=== PATIENT | female | born 1955 | race American Indian/Alaskan Native ===

== ENCOUNTER 2017-02-12 14:11 | Inpatient (IN) | payer MEDICARE ==
[2017-02-12 14:55] LABS: Eosinophils % (Auto) 1.1 % (0.0-4.3)
[2017-02-12 14:57] LABS: White Blood Count 8.2 K/mm3 (4.5-11.0)
[2017-02-12 14:58] LABS: Basophils % (Auto) 0.6 % (0.0-1.8); Diff Status Complete; Hematocrit 39.2 % (30.3-42.9); Hemoglobin 12.5 gm/dl (10.1-14.3); Mean Corpuscular HGB Conc 32 % (30-34); Mean Corpuscular Hemoglobin 29 pg (28-32); Mean Corpuscular Volume 90 fl (79-97); Platelet Count 225 K/mm3 (140-440); Red Blood Count 4.35 M/mm3 (3.65-5.03); Red Cell Distribution Width 17.6 % (13.2-15.2)
[2017-02-12 15:02] LABS: INR 0.91 (0.87-1.13)
--- NOTE | 2017-02-12 15:03 | Emergency Department Report ---
HPI - General Time Seen by Provider: 02/12/17 14:20 - HPI HPI: This is a 61-year-old female presents to the emergency department by EMS from home after she had complaints of chest pain, passed out and was found to have bradycardia and concern for a heart block on EMS EKG. She was externally paced by EMS. The patient is currently confused and therefore a poor historian. Her later came bedside and says that she has a history of a coiled brain aneurysm, coronary artery disease with 2 cardiac stents, some carotid artery narrowing/stenosis. says that this morning the patient's her to complaining of the chest pain, became diaphoretic and passed out when she went to stand up. He denies any seizure history for her. Her primary care physician is a Dr. Onesimo Martinez. She does not have a homicide squad captain as she just moved to the area. ED Past Medical Hx - Past Medical History Hx CVA: No Hx Arthritis: No Hx Asthma: No Hx Dementia: Yes Additional medical history: brain anuerysm - Surgical History Past Surgical History?: Yes Additional Surgical History: 2 stents placed - Social History Smoking Status: Unknown if ever smoked Substance Use Type: Other ED Review of Systems ROS: Stated complaint: CHEST PAIN Other details as noted in HPI Comment: Unobtainable due to pts medical conditions Constitutional: diaphoresis Cardiovascular: chest pain Neurological: confusion Physical Exam - Physical Exam Vital Signs: Vital Signs 02/12/17 14:25 Temperature 98.5 F Pulse Rate 63 Respiratory 16 Rate Blood Pressure 133/70 Physical Exam: GENERAL: Patient is ill-appearing. HENT: Normocephalic. Atraumatic. Patient has moist mucous membranes. EYES: Extraocular motions are intact. Pupils equal reactive to light bilaterally. NECK: Supple. Trachea is midline. CHEST/LUNGS: Clear to auscultation. There is no respiratory distress noted. HEART/CARDIOVASCULAR: Regular. There is mild tachycardia. There is no gallop rub or murmur. ABDOMEN: Abdomen is soft, nontender. Patient has normal bowel sounds. There is no abdominal distention. SKIN: Skin is warm and dry. NEURO: Patient is awake but does not follow all commands. She mostly is staring straight ahead unless she is redirected. Withdraws from painful stimuli. She does answer a few questions and does not appear to have any slurred speech. MUSCULOSKELETAL: There is no tenderness or deformity. There is no limitation range of motion. There is no evidence of acute injury. ED Course Vital Signs 02/12/17 14:25 Temperature 98.5 F Pulse Rate 63 Respiratory 16 Rate Blood Pressure 133/70 ED Medical Decision Making - Lab Data Result diagrams: 02/12/17 14:31 02/12/17 14:31 - EKG Data -: EKG Interpreted by Me EKG shows normal: sinus rhythm, axis, intervals, QRS complexes (Q waves to the inferior leads), ST-T waves Rate: normal - EKG Data When compared to previous EKG there are: previous EKG unavailable Interpretation: other (sinus rhythm, Q waves to the inferior leads) - Radiology Data Radiology results: report reviewed, image reviewed interpreted by me: Chest x-ray does not show any acute process. There are no pleural effusions, obvious pneumonia and there is no pneumothorax. PROCEDURE: CT HEAD/BRAIN WO CON TECHNIQUE: Computerized tomography of the head was performed without contrast material. HISTORY: Altered mental status COMPARISON: No prior studies are available for comparison. FINDINGS: There is encephalomalacia in the medial right frontal lobe, bilateral lateral frontal lobes, and in the left posterior parietal lobe. There are underlying involutional changes. There is extensive periventricular white matter low attenuation, compatible with chronic ischemic change. There is metallic density in the left skullbase. There is no CT evidence of acute intracranial mass, hemorrhage, definitive acute territorial infarction, or hydrocephalus. IMPRESSION: Extensive chronic ischemic changes. No definite acute intracranial abnormality is seen, however if there is clinical concern for acute on chronic ischemia, recommend follow-up. - Medical Decision Making This is a 61-year-old female with a history of coronary artery disease, cardiac stents, history of a brain aneurysm, who presents after she had chest pain followed by a syncopal episode. EKG does not show any ST elevation PR. She arrived with an EKG by EMS that appeared to show some type of A-V dissociation and sustained bradycardia that may have been the reason for her syncopal episode. However when the EKG was done and the external pacer was turned off, the new EKG did not appear to show any type of heart block and patient's heart rate stayed in the normal range in the 60s. Because of the patient's episode of passing out, history of coiled aneurysm and some altered mental status presentation, a CT of the head was done that did not show any bleed, shift, mass or any acute process. First 2 troponins have been negative but there is a slight increase between the first 2. Patient has an elevated TSH that may show some level of hypothyroidism. She does not appear to have a homicide squad captain that she just moved to this area and has not had a stress test in a while. She will be admitted to the hospital for further evaluation and treatment. - Differential Diagnosis PR, Dysrhythmia, Pneumonia, CHF Critical Care Time: No Critical care attestation.: If time is entered above; I have spent that time in minutes in the direct care of this critically ill patient, excluding procedure time. ED Disposition Clinical Impression: Syncope Qualifiers: Syncope type: unspecified Qualified Code(s): R55 - Syncope and collapse Chest pain Qualifiers: Chest pain type: other chest pain Qualified Code(s): R07.89 - Other chest pain ; R07.8 - Other chest pain Hypothyroidism Qualifiers: Hypothyroidism type: unspecified Qualified Code(s): E03.9 - Hypothyroidism, unspecified Disposition: DC-09 OP ADMIT IP TO THIS HOSP Is pt being admited?: Yes Does the pt Need Aspirin: Yes Condition: Stable Instructions: Syncope (ED), Chest Pain (ED) Time of Disposition: 18:45
[2017-02-12 15:12] LABS: Alanine Aminotransferase 12 units/L (7-56); Albumin 4.4 g/dL (3.9-5); Albumin/Globulin Ratio 1.5 %; Alkaline Phosphatase 93 units/L (35-129); Anion Gap 24 mmol/L; BUN/Creatinine Ratio 18; Blood Urea Nitrogen 20 mg/dL (7-17); Calcium 9.3 mg/dL (8.4-10.2); Carbon Dioxide 18 mmol/L (22-30); Chloride 103.9 mmol/L (98-107); Glucose 82 mg/dL (65-100); Potassium 3.8 mmol/L (3.6-5.0); Sodium 142 mmol/L (137-145); Total Protein 7.4 g/dL (6.3-8.2)
--- NOTE | 2017-02-12 15:45 | XRay Report ---
FINAL REPORT EXAM: XR CHEST 1V AP HISTORY: Chest Pain TECHNIQUE: AP portable view of the chest PRIORS: None. FINDINGS: Lines, tubes, and devices: Defibrillator pad overlies the right lower chest. Lungs and pleura: Trachea is normal in position. Lungs are clear of infiltrate, pleural effusion, vascular congestion, or pneumothorax. Bilateral apical pleural thickening is symmetrical. Cardiomediastinal silhouette: Cardiac and mediastinal silhouettes are unremarkable. Other: Bony structures are intact. IMPRESSION: No acute cardiopulmonary process seen.
--- NOTE | 2017-02-12 16:51 | Cat Scan Report ---
FINAL REPORT PROCEDURE: CT HEAD/BRAIN WO CON TECHNIQUE: Computerized tomography of the head was performed without contrast material. HISTORY: Altered mental status COMPARISON: No prior studies are available for comparison. FINDINGS: There is encephalomalacia in the medial right frontal lobe, bilateral lateral frontal lobes, and in the left posterior parietal lobe. There are underlying involutional changes. There is extensive periventricular white matter low attenuation, compatible with chronic ischemic change. There is metallic density in the left skullbase. There is no CT evidence of acute intracranial mass, hemorrhage, definitive acute territorial infarction, or hydrocephalus. IMPRESSION: Extensive chronic ischemic changes. No definite acute intracranial abnormality is seen, however if there is clinical concern for acute on chronic ischemia, recommend follow-up.
[2017-02-12] MEDS ORDERED: DILAUDID IV ONE (16:54)
--- NOTE | 2017-02-12 18:36 | History and Physical Report ---
History of Present Illness Chief complaint: She passed out, and aint acting quite right History of present illness: 61 YO Female with Dementia, CAD S/P Stent Placement, Brain Aneurysm S/P coil placement, CVA presents to ED for evaluation. Pt is unable to provide history but history is provided by who is at bedside during exam and interview. As per , the patient was in her usual state of health until this morning. Pt complained of pain in her chest, and tried to stand up but became diaphoretic and subsequently lost consciousness. EMS was notified and upon arrival patient was found to be bradycardic with heart block on EKG, and was subsequently externally paced and transported to [facility] for evaluation. No reports of fever, chills, palpitations, NVD, productive cough, unintentional weight loss , night sweats, prolonged immobility/travel, leg swelling, calf pain, individual /family history of DVT/PE. Pt seen and evaluted in ED and found to be lethargic , but is able to protect her airway. Past History Past Medical History: CAD, stroke, other (Dementia) Past Surgical History: Other (Brain aneurysm coil placement, stent placement) Social history: , lives with family. denies: smoking, alcohol abuse, prescription drug abuse Family history: CAD, hypertension Medications and Allergies Allergies Allergy/AdvReac Type Severity Reaction Status Date / Time tetracycline Allergy Unknown Unknown Verified 02/12/17 14:41 Review of Systems ROS unobtainable: due to mental status Exam - Constitutional Vitals: Temp Pulse Resp BP Pulse Ox 98.4 F 59 L 15 140/76 95 02/12/17 18:22 02/12/17 18:22 02/12/17 18:22 02/12/17 18:22 02/12/17 18:22 General appearance: Present: mild distress - EENT Eyes: Present: PERRL ENT: hearing intact, clear oral mucosa - Neck Neck: Present: supple, normal ROM - Respiratory Respiratory effort: normal Respiratory: bilateral: CTA - Cardiovascular Heart Sounds: Present: S1 & S2. Absent: rub, click - Extremities Extremities: pulses symmetrical, No edema Peripheral Pulses: within normal limits - Abdominal General gastrointestinal: Present: soft, non-tender, non-distended, normal bowel sounds Female genitourinary: Present: normal - Integumentary Integumentary: Present: clear, warm, dry - Musculoskeletal Musculoskeletal: generalized weakness - Psychiatric Psychiatric: no intact judgment & insight, no memory intact - Neurologic Neurologic: CNII-XII intact, moves all extremities Results - Labs CBC & Chem 7: 02/12/17 14:31 02/12/17 14:31 Labs: Abnormal lab results 02/12/17 02/12/17 02/12/17 Range/Units 14:31 14:31 14:31 RDW 17.6 H (13.2-15.2) % [place] % (Auto) 8.0 H (0.0-7.3) % APTT 22.0 L (24.2-36.6) Sec. Carbon Dioxide 18 L (22-30) mmol/L BUN 20 H (7-17) mg/dL TSH (0.270-4.200) mlU/mL 02/12/17 Range/Units 14:31 RDW (13.2-15.2) % [place] % (Auto) (0.0-7.3) % APTT (24.2-36.6) Sec. Carbon Dioxide (22-30) mmol/L BUN (7-17) mg/dL TSH 8.520 H (0.270-4.200) mlU/mL Assessment and Plan - Patient Problems (1) ACS (acute coronary syndrome) Current Visit: Yes Status: Acute Plan to address problem: Serial cardiac enzymes, ekg, telemetry, echo, carotid doppler, Cardiology consulted, pain control, aspirin, nitro tabs, supplemental oxygen, thyroid panel , D dimer, CTA chest (2) Unconscious state Current Visit: Yes Status: Acute Plan to address problem: CT head, Neuro checks, admit to telemetry, EEG (3) Myxedema Current Visit: Yes Status: Acute Plan to address problem: IV synthroid supplementation, and oral synthroid scheduled, (4) CAD (coronary artery disease) Current Visit: Yes Status: Acute Qualifiers: Coronary Disease-Associated Artery/Lesion type: [place] artery [place] vs. transplanted heart: [place] heart Associated angina: A Plan to address problem: low cholesterol diet, anti platelet therapy with aspirin, lipid panel (5) Metabolic acidosis Current Visit: Yes Status: Acute Plan to address problem: metabolic acidosis: IVF resuscitation, repeat bmp, treat myxedema (6) DVT prophylaxis Current Visit: Yes Status: Acute
[2017-02-12] MEDS ORDERED: PROVENTIL IH PRN (18:41)
[2017-02-12] MEDS ORDERED: ZOFRAN IV PRN (18:41)
[2017-02-12] MEDS ORDERED: SODIUM CHLORIDE FLUSH SYRINGE 10 ML IV PRN (18:41)
[2017-02-12] MEDS ORDERED: BABY ASPIRIN PO ONE (18:45)
[2017-02-12] MEDS ORDERED: SYNTHROID IV ONE (19:00)
[2017-02-12] MEDS: TYLENOL PO PRN (19:45)
[2017-02-12 20:54] LABS: Urine Drugs of Abuse Note Disclamer
[2017-02-12 21:11] LABS: Bilirubin,Urine NEG (Negative); Blood,Urine NEG (Negative); Ketones,Urine NEG (Negative); Leukocyte Esterase,Urine NEG (Negative); Mucus,Urine 1+ /HPF; Nitrite,Urine NEG (Negative); Urobilinogen,Urine < 2.0 mg/dL (<2.0)
[2017-02-13] MEDS: SYNTHROID PO SCH ×2 (05:30)
--- NOTE | 2017-02-13 08:05 | Progress Note ---
<RANGEL JOHNSON - Last Filed: 02/13/17 14:28> Assessment and Plan Assessment and plan: This is a 61-year-old female presents to the emergency department by EMS from home after she had complaints of chest pain, passed out and was found to have bradycardia and concern for a heart block on EMS EKG. Acute coronary syndrome /STEMI EKG sinus bradycardia with possible acute inferior ST elevation injury. Postive cardiac enzyme Start on aspirin Nitroglycerin when necessary Supplemental oxygen, thyroid panel Morphine ordered for pain S/P RCA Stent transfer patient to ICU Cardiology following Autonomic imbalance Most likely due to vasovagal secondary to CT of the head showed no acute process. Frequent neuro checks Echocardiogram pending Negative carotid doppler IV fluid hydration Monitor Orthostatic blood pressure Elevated D-dimer CTA ordered VL LE doppler ordered Myxedema IV synthroid supplementation given yesterday Continue oral synthroid CAD (coronary artery disease) low cholesterol diet, Continue on anti platelet therapy with aspirin follow up Lipid panel Metabolic acidosis Most likely due to myxedema Treat myxedema Continue IVF fluid Closely monitor BMP DVT prophylaxis Lovenox History Interval history: Patient denies chest pain, shortness of breasts, or dizziness. Labs and nursing notes reviewed Hospitalist Physical - Constitutional Vitals: Temp Pulse Resp BP Pulse Ox 99.1 F 57 L 21 108/57 99 02/13/17 06:57 02/13/17 06:57 02/13/17 06:57 02/13/17 06:57 02/13/17 06:57 General appearance: Present: mild distress - EENT Eyes: Present: PERRL ENT: hearing intact - Neck Neck: Present: supple - Respiratory Respiratory effort: normal Respiratory: bilateral: CTA - Cardiovascular Rhythm: regular Heart Sounds: Present: S1 & S2 - Abdominal General gastrointestinal: soft, non-tender - Integumentary Integumentary: Present: clear, warm, dry - Psychiatric Psychiatric: appropriate mood/affect - Neurologic Neurologic: moves all extremities - Allied Health Allied health notes reviewed: nursing Results - Labs CBC & Chem 7: 02/12/17 14:31 02/12/17 14:31 Labs: Laboratory Last Values WBC 8.2 K/mm3 (4.5-11.0) 02/12/17 14:31 RBC 4.35 M/mm3 (3.65-5.03) 02/12/17 14:31 Hgb 12.5 gm/dl (10.1-14.3) 02/12/17 14:31 Hct 39.2 % (30.3-42.9) 02/12/17 14:31 MCV 90 fl (79-97) 02/12/17 14:31 MCH 29 pg (28-32) 02/12/17 14:31 MCHC 32 % (30-34) 02/12/17 14:31 RDW 17.6 % (13.2-15.2) H 02/12/17 14:31 Plt Count 225 K/mm3 (140-440) 02/12/17 14:31 Lymph % (Auto) 31.1 % (13.4-35.0) 02/12/17 14:31 [place] % (Auto) 8.0 % (0.0-7.3) H 02/12/17 14:31 Eos % (Auto) 1.1 % (0.0-4.3) 02/12/17 14:31 Baso % (Auto) 0.6 % (0.0-1.8) 02/12/17 14:31 Lymph # 2.6 K/mm3 (1.2-5.4) 02/12/17 14:31 [place] # 0.7 K/mm3 (0.0-0.8) 02/12/17 14:31 Eos # 0.1 K/mm3 (0.0-0.4) 02/12/17 14:31 Baso # 0.1 K/mm3 (0.0-0.1) 02/12/17 14:31 Add Manual Diff Complete 02/12/17 14:31 Seg Neutrophils % 59.2 % (40.0-70.0) 02/12/17 14:31 Seg Neutrophils # 4.9 K/mm3 (1.8-7.7) 02/12/17 14:31 PT 12.7 Sec. (12.2-14.9) 02/12/17 14:31 INR 0.91 (0.87-1.13) 02/12/17 14:31 APTT 22.0 Sec. (24.2-36.6) L 02/12/17 14:31 D-Dimer 291.1 ng/mlDDU (0-234) H 02/12/17 14:31 Sodium 142 mmol/L (137-145) 02/12/17 14:31 Potassium 3.8 mmol/L (3.6-5.0) 02/12/17 14:31 Chloride 103.9 mmol/L (98-107) 02/12/17 14:31 Carbon Dioxide 18 mmol/L (22-30) L 02/12/17 14:31 Anion Gap 24 mmol/L 02/12/17 14:31 BUN 20 mg/dL (7-17) H 02/12/17 14:31 Creatinine 1.1 mg/dL (0.7-1.2) 02/12/17 14:31 Estimated GFR 50 ml/min 02/12/17 14:31 BUN/Creatinine Ratio 18 % 02/12/17 14:31 Glucose 82 mg/dL (65-100) 02/12/17 14:31 Calcium 9.3 mg/dL (8.4-10.2) 02/12/17 14:31 Total Bilirubin 0.20 mg/dL (0.1-1.2) 02/12/17 14:31 AST 13 units/L (5-40) 02/12/17 14:31 ALT 12 units/L (7-56) 02/12/17 14:31 Alkaline Phosphatase 93 units/L (35-129) 02/12/17 14:31 Troponin T 0.132 ng/mL (0.00-0.029) H* D 02/12/17 22:59 NT-Pro-B Natriuret Pep 17.22 pg/mL (0-900) 02/12/17 14:31 Total Protein 7.4 g/dL (6.3-8.2) 02/12/17 14:31 Albumin 4.4 g/dL (3.9-5) 02/12/17 14:31 Albumin/Globulin Ratio 1.5 % 02/12/17 14:31 Triglycerides 169 mg/dL (2-149) H 02/12/17 20:20 Cholesterol 179 mg/dL (50-199) 02/12/17 20:20 LDL Cholesterol Direct 102 mg/dL (50-130) 02/12/17 20:20 HDL Cholesterol 44 mg/dL (40-59) 02/12/17 20:20 Cholesterol/HDL Ratio 4.06 % 02/12/17 20:20 TSH 8.520 mlU/mL (0.270-4.200) H 02/12/17 14:31 Urine Color Yellow (Yellow) 02/12/17 20:52 Urine Turbidity Clear (Clear) 02/12/17 20:52 Urine pH 5.0 (5.0-7.0) 02/12/17 20:52 Ur Specific [place] 1.025 (1.003-1.030) 02/12/17 20:52 Urine Protein 30 mg/dl mg/dL (Negative) 02/12/17 20:52 Urine Glucose (UA) Neg mg/dL (Negative) 02/12/17 20:52 Urine Ketones Neg mg/dL (Negative) 02/12/17 20:52 Urine Blood Neg (Negative) 02/12/17 20:52 Urine Nitrite Neg (Negative) 02/12/17 20:52 Urine Bilirubin Neg (Negative) 02/12/17 20:52 Urine Urobilinogen < 2.0 mg/dL (<2.0) 02/12/17 20:52 Ur Leukocyte Esterase Neg (Negative) 02/12/17 20:52 Urine WBC (Auto) 2.0 /HPF (0.0-6.0) 02/12/17 20:52 Urine RBC (Auto) 4.0 /HPF (0.0-6.0) 02/12/17 20:52 U Epithel Cells (Auto) 5.0 /HPF (0-13.0) 02/12/17 20:52 Urine Mucus 1+ /HPF 02/12/17 20:52 Urine Opiates Screen Presumptive negative 02/12/17 20:52 Urine Methadone Screen Presumptive negative 02/12/17 20:52 Ur Barbiturates Screen Presumptive negative 02/12/17 20:52 Ur Phencyclidine Scrn Presumptive negative 02/12/17 20:52 Ur Amphetamines Screen Presumptive negative 02/12/17 20:52 U Benzodiazepines Scrn Presumptive positive 02/12/17 20:52 Urine Cocaine Screen Presumptive negative 02/12/17 20:52 U Marijuana (THC) Screen Presumptive negative 02/12/17 20:52 Drugs of Abuse Note Disclamer 02/12/17 20:52 <KATHRINE NAGEL M - Last Filed: 02/13/17 15:16> Assessment and Plan Assessment and plan: I saw and evaluated the patient. I agree with the findings and the plan of care as documented in the Nurse Practitioner's progress note, with the following corrections and additions. patient has STEMI and cardiac cath was done and showed RCA obstruction and stent was placed. Patient transferred to ICU. The high probability of a clinically significant, sudden or life threatening deterioration of the [cardiac] system(s) required my full and direct attention, intervention and personal management. The aggregate critical care time was [31] minutes. This time is in addition to time spent performing reported procedures but includes the following: [x] Data Review and interpretation [x] Patient assessment and monitoring of vital signs [x] Documentation [x] Medication orders and management Hospitalist Physical - Constitutional Vitals: Temp Pulse Resp BP Pulse Ox 98.1 F 57 L 16 107/71 100 02/13/17 14:25 02/13/17 14:30 02/13/17 14:30 02/13/17 14:30 02/13/17 14:30 Results - Labs CBC & Chem 7: 02/12/17 14:31 02/12/17 14:31 Labs: Laboratory Last Values WBC 8.2 K/mm3 (4.5-11.0) 02/12/17 14:31 RBC 4.35 M/mm3 (3.65-5.03) 02/12/17 14:31 Hgb 12.5 gm/dl (10.1-14.3) 02/12/17 14:31 Hct 39.2 % (30.3-42.9) 02/12/17 14:31 MCV 90 fl (79-97) 02/12/17 14:31 MCH 29 pg (28-32) 02/12/17 14:31 MCHC 32 % (30-34) 02/12/17 14:31 RDW 17.6 % (13.2-15.2) H 02/12/17 14:31 Plt Count 225 K/mm3 (140-440) 02/12/17 14:31 Lymph % (Auto) 31.1 % (13.4-35.0) 02/12/17 14:31 [place] % (Auto) 8.0 % (0.0-7.3) H 02/12/17 14:31 Eos % (Auto) 1.1 % (0.0-4.3) 02/12/17 14:31 Baso % (Auto) 0.6 % (0.0-1.8) 02/12/17 14:31 Lymph # 2.6 K/mm3 (1.2-5.4) 02/12/17 14:31 [place] # 0.7 K/mm3 (0.0-0.8) 02/12/17 14:31 Eos # 0.1 K/mm3 (0.0-0.4) 02/12/17 14:31 Baso # 0.1 K/mm3 (0.0-0.1) 02/12/17 14:31 Add Manual Diff Complete 02/12/17 14:31 Seg Neutrophils % 59.2 % (40.0-70.0) 02/12/17 14:31 Seg Neutrophils # 4.9 K/mm3 (1.8-7.7) 02/12/17 14:31 PT 12.7 Sec. (12.2-14.9) 02/12/17 14:31 INR 0.91 (0.87-1.13) 02/12/17 14:31 APTT 22.0 Sec. (24.2-36.6) L 02/12/17 14:31 D-Dimer 291.1 ng/mlDDU (0-234) H 02/12/17 14:31 Sodium 142 mmol/L (137-145) 02/12/17 14:31 Potassium 3.8 mmol/L (3.6-5.0) 02/12/17 14:31 Chloride 103.9 mmol/L (98-107) 02/12/17 14:31 Carbon Dioxide 18 mmol/L (22-30) L 02/12/17 14:31 Anion Gap 24 mmol/L 02/12/17 14:31 BUN 20 mg/dL (7-17) H 02/12/17 14:31 Creatinine 1.1 mg/dL (0.7-1.2) 02/12/17 14:31 Estimated GFR 50 ml/min 02/12/17 14:31 BUN/Creatinine Ratio 18 % 02/12/17 14:31 Glucose 82 mg/dL (65-100) 02/12/17 14:31 Calcium 9.3 mg/dL (8.4-10.2) 02/12/17 14:31 Total Bilirubin 0.20 mg/dL (0.1-1.2) 02/12/17 14:31 AST 13 units/L (5-40) 02/12/17 14:31 ALT 12 units/L (7-56) 02/12/17 14:31 Alkaline Phosphatase 93 units/L (35-129) 02/12/17 14:31 Troponin T 0.132 ng/mL (0.00-0.029) H* D 02/12/17 22:59 NT-Pro-B Natriuret Pep 17.22 pg/mL (0-900) 02/12/17 14:31 Total Protein 7.4 g/dL (6.3-8.2) 02/12/17 14:31 Albumin 4.4 g/dL (3.9-5) 02/12/17 14:31 Albumin/Globulin Ratio 1.5 % 02/12/17 14:31 Triglycerides 169 mg/dL (2-149) H 02/12/17 20:20 Cholesterol 179 mg/dL (50-199) 02/12/17 20:20 LDL Cholesterol Direct 102 mg/dL (50-130) 02/12/17 20:20 HDL Cholesterol 44 mg/dL (40-59) 02/12/17 20:20 Cholesterol/HDL Ratio 4.06 % 02/12/17 20:20 TSH 8.520 mlU/mL (0.270-4.200) H 02/12/17 14:31 Urine Color Yellow (Yellow) 02/12/17 20:52 Urine Turbidity Clear (Clear) 02/12/17 20:52 Urine pH 5.0 (5.0-7.0) 02/12/17 20:52 Ur Specific [place] 1.025 (1.003-1.030) 02/12/17 20:52 Urine Protein 30 mg/dl mg/dL (Negative) 02/12/17 20:52 Urine Glucose (UA) Neg mg/dL (Negative) 02/12/17 20:52 Urine Ketones Neg mg/dL (Negative) 02/12/17 20:52 Urine Blood Neg (Negative) 02/12/17 20:52 Urine Nitrite Neg (Negative) 02/12/17 20:52 Urine Bilirubin Neg (Negative) 02/12/17 20:52 Urine Urobilinogen < 2.0 mg/dL (<2.0) 02/12/17 20:52 Ur Leukocyte Esterase Neg (Negative) 02/12/17 20:52 Urine WBC (Auto) 2.0 /HPF (0.0-6.0) 02/12/17 20:52 Urine RBC (Auto) 4.0 /HPF (0.0-6.0) 02/12/17 20:52 U Epithel Cells (Auto) 5.0 /HPF (0-13.0) 02/12/17 20:52 Urine Mucus 1+ /HPF 02/12/17 20:52 Urine Opiates Screen Presumptive negative 02/12/17 20:52 Urine Methadone Screen Presumptive negative 02/12/17 20:52 Ur Barbiturates Screen Presumptive negative 02/12/17 20:52 Ur Phencyclidine Scrn Presumptive negative 02/12/17 20:52 Ur Amphetamines Screen Presumptive negative 02/12/17 20:52 U Benzodiazepines Scrn Presumptive positive 02/12/17 20:52 Urine Cocaine Screen Presumptive negative 02/12/17 20:52 U Marijuana (THC) Screen Presumptive negative 02/12/17 20:52 Drugs of Abuse Note Disclamer 02/12/17 20:52
[2017-02-13] MEDS ORDERED: NITROGLYCERIN SYRINGE 6 ML ONE (12:57)
[2017-02-13] MEDS ORDERED: NACL 0.9% 500 ML 500 ML ONE ×2 (12:57→14:15)
[2017-02-13] MEDS ORDERED: HEPARIN/NS 5000 UNIT/500ML(CATH LAB) 1,000 ML IR ONE (12:57)
[2017-02-13] MEDS: XYLOCAINE 2% INFILTRATI ONE ×2 (13:08→13:25)
--- NOTE | 2017-02-13 13:15 | Consultation ---
History of Present Illness Consult date: 02/13/17 Consult reason: bradycardia, syncope History of present illness: Patient history 61-year-old woman who presented to the hospital following a syncopal episode at home. In the chart, it is reported that the model and dye person found her pale, clammy, confused with a heart rate in the 40s. It is reported that she was externally paced prior to arrival to the emergency room. Unfortunately, I do not have any records of the telemetry strips just from the field, they apparently were not recorded or if they were, are not available in the chart. The initial EKG in the emergency room was a sinus bradycardia heart rate 52. Cardiology consultation was requested for "syncope and bradycardia". On my further review of the ECGs since presentation, there inferior QS complexes with ST elevation in leads 3 and aVF, with reciprocal ST depressions in leads 1 and aVL. This suggests a strong consideration for possible acute inferior injury or inferior ST elevation [place]. The patient currently is awake and alert and comfortable, no acute distress and no chest pain, but due to the dynamic inferior ST changes, we recommend immediate cardiac catheterization. Past history includes coronary artery disease and vascular disease. She recently relocated with her from [place]. 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 In addition, she has had at least 2 previous CVAs, which have resulted in memory deficit according to her , but no significant motor deficits in her extremities. Pertinent laboratory values on her presentation includes an elevated TSH of 8.5 , suggesting underlying hypothyroidism. The denies any prior history of thyroid disease. Past History Past Medical History: CAD, stroke, other (Dementia) Past Surgical History: Other (Brain aneurysm coil placement, stent placement) Social history: , lives with family. denies: smoking, alcohol abuse, prescription drug abuse Family history: CAD, hypertension Medications and Allergies Allergies Allergy/AdvReac Type Severity Reaction Status Date / Time tetracycline Allergy Unknown Unknown Verified 02/12/17 14:41 Home Medications Medication Instructions Recorded Confirmed Last Taken Type Unobtainable 02/13/17 02/13/17 Unknown History Active Meds: Active Medications Acetaminophen (Tylenol) 650 mg PO Q4H PRN PRN Reason: Pain MILD(1-3)/Fever >100.5/BRAND Last Admin: 02/12/17 19:45 Dose: 650 mg Albuterol (Proventil) 2.5 mg IH Q4H PRN PRN Reason: Shortness Of Breath Levothyroxine Sodium (Synthroid) 100 mcg PO DAILY@0600 [facility] Last Admin: 02/13/17 05:30 Dose: 100 mcg Levothyroxine Sodium (Synthroid) 75 mcg PO DAILY@0600 [facility] Last Admin: 02/13/17 05:30 Dose: 75 mcg Ondansetron HCl (Zofran) 4 mg IV Q8H PRN PRN Reason: N/V unrelieved by Reglan Sodium Chloride (Sodium Chloride Flush Syringe 10 Ml) 10 ml IV PRN PRN PRN Reason: LINE FLUSH Review of Systems ROS unobtainable: due to mental status Physical Examination Vital Signs Pulse Resp BP 66 19 133/70 02/12/17 14:16 02/12/17 14:16 02/12/17 14:16 General appearance: no acute distress HEENT: Positive: PERRL Neck: Positive: neck supple Cardiac: Positive: Reg Rate and Rhythm Lungs: Positive: clear to auscultation Neuro: Positive: Grossly Intact Abdomen: Positive: Soft Female genitourinary: deferred Skin: Positive: Clear Extremities: Absent: edema Results 02/12/17 14:31 02/12/17 14:31 Lipids 02/12/17 Range/Units 20:20 Triglycerides 169 H (2-149) mg/dL Cholesterol 179 (50-199) mg/dL HDL Cholesterol 44 (40-59) mg/dL Cholesterol/HDL Ratio 4.06 % EKG interpretations - Telemetry EKG Rhythm: Sinus Rhythm (with possible inferior ST elevation infarct) Assessment and Plan - Patient Problems (1) ACS (acute coronary syndrome) Current Visit: Yes Status: Acute Plan to address problem: We will recommend immediate cardiac catheterization for syncope associated with marked sinus bradycardia and ECG evidence of possible acute inferior ST elevation injury.
[2017-02-13] MEDS: SUBLIMAZE ONE ×3 (13:27→13:43)
[2017-02-13] MEDS: VERSED ONE ×2 (13:27→13:35)
[2017-02-13] MEDS: HEPARIN 10,000 UNITS/10 ML ONE ×2 (13:35→13:47)
[2017-02-13] MEDS ORDERED: ALUM-MAG HYDROX-SIMETH 200-200-20MG/5ML ONE (14:12)
[2017-02-13] MEDS ORDERED: PLAVIX ONE (14:12)
[2017-02-13] MEDS ORDERED: AGGRASTAT DRIP (12.5 MG/250 ML) 12,500 MCG/250 ML BAG IV ONE (14:22)
--- NOTE | 2017-02-13 14:24 | Event Note ---
Date: 02/13/17 Cardiac cath showed 100% oclusion of the mid RCA, within prior stent. Successful angioplasty and stenting with 3.0-3.5mm DE stents, JAYDE 3 flow restored, excellent angio result. Recommend: Transfer CCU overnight. Aggrastat for 18hrs. ASA and Plavix indefinitely (?late stent thrombosis ~6 years after stoppage of Plavix and ~8 years after index stent). Metoprolol, statin and long-acting oral nitrates.
[2017-02-13] MEDS ORDERED: NACL 0.9% 1000 ML 1,000 ML IV SCH (15:00)
[2017-02-13] MEDS ORDERED: AGGRASTAT DRIP (12.5 MG/250 ML) 12,500 MCG/250 ML BAG IV SCH (15:00)
--- NOTE | 2017-02-13 15:53 | Cardiac Catherization Report ---
CARDIAC CATHETERIZATION AND CORONARY ANGIOPLASTY REPORT REASON FOR PROCEDURE: The patient is a 61-year-old woman who was admitted to the hospital with syncope associated with sinus bradycardia. She was admitted to the medical service. Medical service consulted Cardiology for syncope and bradycardia. On further review of the admitting EKGs, we determined evidence of inferior ST elevation, consistent with an acute injury pattern. As a consequence, we recommended immediate cardiac catheterization. PROCEDURE: The patient was prepped and draped in a sterile fashion after informed consent. The right femoral artery was entered using the Seldinger technique followed by placement of a 6-Romanian sheath. Selective left and right coronary angiography was performed using #4 right and left Ruiz catheters. The right Judkin's was used for left ventricle angiography. The angiograms were reviewed. CORONARY ANGIOGRAPHY: The left main coronary artery was angiographically normal. There was mild ostial narrowing of the left anterior descending artery. This was followed by mild atherosclerosis of the proximal segment. Beyond this, we noted another irregular, 40% to 50% stenosis of the mid LAD. The circumflex artery and its obtuse marginal branches were free of significant disease. The right coronary artery was dominant. This vessel contained coronary stents extending from the proximal segment, through the entire mid segment. The right coronary artery was completely occluded in its mid segment, within the previous stent. This appeared to be the culprit lesion for the acute coronary syndrome presentation, as well as inferior ST elevation. We recommended immediate artery coronary angioplasty. CORONARY ANGIOPLASTY: We selected a #4 right Ruiz guiding catheter and advanced to the right coronary ostium. A 0.014 inch guide wire was deployed, successfully penetrating the completely occluded vessel. Following wire placement, we performed balloon angioplasty of the mid segment. Following balloon angioplasty, JAYDE 3 flow was restored, with evidence of diffuse in-stent restenosis as well as a thrombus. Additional balloon angioplasty was then performed. Following balloon angioplasty, we then deployed a serial 3.0 to 3.5 mm drug-eluting stents, covering the entire lesional segment, extending from the acute margin, proximally to near the ostium of the vessel. Further stenting and post-dilatation angioplasty, there was an excellent angiographic result, 0 residual stenosis, and JAYDE 3 flow restored in the vessel. No evidence of intraluminal thrombus and procedure was well tolerated by the patient without complications. CONCLUSION: 1. Complete occlusion of the mid-right coronary artery, 100% occlusion within the previous stent. This represents possibly late thrombosis, but there was also evidence of diffuse in-stent restenosis. 2. Successful primary angioplasty and stenting, with an excellent angiographic result, with deployment of serial, 3.0 to 3.5 mm drug-eluting stents. 3. [id number] nonobstructive disease of the mid left anterior descending will be managed conservatively. 4. Mild left ventricular systolic dysfunction on left ventricular angiography, ejection fraction 40% to 45%. [facility]# [id number] CA/NTS
--- NOTE | 2017-02-13 16:02 | Consultation ---
History of Present Illness Consult date: 02/13/17 Requesting physician: KATHRINE NAGEL Reason for consult: other (STEMI; CAD) History of present illness: PULMONARY/CCM CONSULT NOTE (Full dictation # [id number]) Please see dictated notes for full details Past History Past Medical History: CAD, stroke, other (Dementia) Past Surgical History: Other (Brain aneurysm coil placement, stent placement) Social history: , lives with family. denies: smoking, alcohol abuse, prescription drug abuse Family history: CAD, hypertension Medications and Allergies Allergies Allergy/AdvReac Type Severity Reaction Status Date / Time tetracycline Allergy Unknown Unknown Verified 02/12/17 14:41 Home Medications Medication Instructions Recorded Confirmed Last Taken Type Unobtainable 02/13/17 02/13/17 Unknown History Active Meds: Active Medications Acetaminophen (Tylenol) 650 mg PO Q4H PRN PRN Reason: Pain MILD(1-3)/Fever >100.5/BRAND Last Admin: 02/12/17 19:45 Dose: 650 mg Albuterol (Proventil) 2.5 mg IH Q4H PRN PRN Reason: Shortness Of Breath Aspirin (Ecotrin) 325 mg PO QDAY ODALIS Atorvastatin Calcium (Lipitor) 40 mg PO QHS ODALIS Clopidogrel Bisulfate (Plavix) 75 mg PO QDAY ODALIS Tirofiban/Sodium Chloride (Aggrastat Drip (12.5 Mg/250 Ml)) 12,500 mcg in 250 mls @ 6 mls/hr IV DIRECT ODALIS; Per Protocol PRN Reason: Protocol Stop: 02/14/17 07:00 Last Infusion: 02/13/17 15:51 Dose: 6 mls/hr Sodium Chloride (Nacl 0.9% 1000 Ml) 1,000 mls @ 100 mls/hr IV DIRECT ODALIS Stop: 02/14/17 02:59 Isosorbide Mononitrate (Imdur) 30 mg PO QDAY [facility] Levothyroxine Sodium (Synthroid) 100 mcg PO DAILY@0600 [facility] Last Admin: 02/13/17 05:30 Dose: 100 mcg Levothyroxine Sodium (Synthroid) 75 mcg PO DAILY@0600 [facility] Last Admin: 02/13/17 05:30 Dose: 75 mcg Metoprolol Tartrate (Lopressor) 50 mg PO BID ODALIS Ondansetron HCl (Zofran) 4 mg IV Q8H PRN PRN Reason: N/V unrelieved by Reglan Sodium Chloride (Sodium Chloride Flush Syringe 10 Ml) 10 ml IV PRN PRN PRN Reason: LINE FLUSH Physical Examination Vital signs: Vital Signs Pulse Resp BP 66 19 133/70 02/12/17 14:16 02/12/17 14:16 02/12/17 14:16 Results - Laboratory Findings CBC and BMP: 02/12/17 14:31 02/12/17 14:31 PT/INR, D-dimer PT 12.7 Sec. (12.2-14.9) 02/12/17 14:31 INR 0.91 (0.87-1.13) 02/12/17 14:31 D-Dimer 291.1 ng/mlDDU (0-234) H 02/12/17 14:31 Abnormal lab findings: Abnormal Labs 02/12/17 02/12/17 02/12/17 20:20 20:20 22:59 Activated Clotting Time Troponin T 0.077 H D 0.132 H* D Triglycerides 169 H 02/13/17 13:45 Activated Clotting Time 224 H Troponin T Triglycerides
[2017-02-13] MEDS: IMDUR PO SCH (16:43)
[2017-02-13] MEDS: PEPCID PO SCH (18:17)
[2017-02-13] MEDS ORDERED: SYNTHROID 150 MCG, SYNTHROID 25 MCG PO SCH (18:47)
[2017-02-13] MEDS ORDERED: DILAUDID IV ONE (19:40)
[2017-02-13] MEDS ORDERED: NACL ONE (22:26)
--- NOTE | 2017-02-13 22:57 | Cat Scan Report ---
FINAL REPORT PROCEDURE: CT ANGIO CHEST TECHNIQUE: Computerized axial tomographic angiography of the chest and pulmonary arteries was performed after the IV injection of iodinated nonionic contrast. The image data was postprocessed using maximum intensity projection (MIP) and 2-dimensional multiplanar reformatted (MPR) techniques. The examination is specifically tailored to the evaluation of the pulmonary arteries per clinical request. HISTORY: Short of breath 786.09, chest pain 786.50, Elevated D-dimer COMPARISON: No prior studies are available for comparison. FINDINGS: Heart and pericardium: The heart size is normal. There is a small pericardial effusion.. Thoracic aorta: There is calcified plaque in the thoracic aorta. There is no aneurysm. There is no contrast. Dissection cannot be evaluated.. Pulmonary vasculature: There is no IV contrast. Pulmonary embolism cannot be evaluated.. Lymph nodes: No enlarged thoracic lymph nodes. Lungs: Lungs are well-expanded. There are no infiltrates.. Pleural space: No effusion, thickening, or pneumothorax. Musculoskeletal structures: No significant abnormality. Upper abdominal structures: No significant abnormality. IMPRESSION: The exam is nondiagnostic for thoracic aortic dissection or pulmonary embolism.. There is a small pericardial effusion. The lungs are clear and expanded.
[2017-02-14] MEDS: TYLENOL PO PRN ×2 (00:19→06:33)
[2017-02-14] MEDS: LOPRESSOR PO SCH ×3 (00:20→22:29)
[2017-02-14 04:38] LABS: Basophils % (Auto) 0.5 % (0.0-1.8); Eosinophils % (Auto) 0.4 % (0.0-4.3); Hematocrit 34.8 % (30.3-42.9); Hemoglobin 11.2 gm/dl (10.1-14.3); Mean Corpuscular HGB Conc 32 % (30-34); Mean Corpuscular Hemoglobin 29 pg (28-32); Mean Corpuscular Volume 89 fl (79-97); Platelet Count 181 K/mm3 (140-440); Red Blood Count 3.92 M/mm3 (3.65-5.03); Red Cell Distribution Width 17.4 % (13.2-15.2); White Blood Count 7.8 K/mm3 (4.5-11.0)
[2017-02-14 05:24] LABS: Creatine Kinase MB 73.3 ng/mL (0.0-4.0)
[2017-02-14 05:25] LABS: Anion Gap 18 mmol/L; BUN/Creatinine Ratio 19; Blood Urea Nitrogen 13 mg/dL (7-17); Calcium 8.7 mg/dL (8.4-10.2); Carbon Dioxide 21 mmol/L (22-30); Chloride 104.8 mmol/L (98-107); Creatine Kinase 956 units/L (30-135); Glucose 82 mg/dL (65-100); Potassium 4.3 mmol/L (3.6-5.0); Sodium 139 mmol/L (137-145)
[2017-02-14] MEDS: SYNTHROID PO SCH ×2 (06:33)
--- NOTE | 2017-02-14 07:45 | Progress Note ---
<RANGEL JOHNSON - Last Filed: 02/15/17 07:34> Assessment and Plan Assessment and plan: Patient is a 61-year-old female presents to the emergency department by EMS from home after she had complaints of chest pain, passed out and was found to have bradycardia and concern for a heart block on EMS EKG. Acute coronary syndrome /STEMI Cardiac cath showed 100% oclusion of the mid RCA, S/P RCA Stent within prior PCI with drug eluting stent. Disposition tolerated the procedure well and transferred to Telemetry. EKG sinus bradycardia with possible acute inferior ST elevation injury. Positive cardiac enzyme Continue on Aspirin, Plavix, beta blockers, statin and long-acting oral nitrates. Supplemental oxygen, thyroid panel Echocardiogram with ef 55%-60% Managing by Cardiology Autonomic imbalance due to STEMI Most likely due to vasovagal secondary to CT of the head showed no acute process. Frequent neuro checks Echocardiogram with ef 55%-60% Negative carotid doppler IV fluid hydration Monitor Orthostatic blood pressure Elevated D-dimer CTA no evidence of PE negative VL LE doppler ordered Myxedema IV synthroid supplementation given yesterday Continue oral synthroid Hx CAD (coronary artery disease) low cholesterol diet, Continue on anti platelet therapy with aspirin follow up Lipid panel Metabolic acidosis Most likely due to myxedema Treat myxedema Continue IVF fluid Closely monitor BMP Tobacco abuse smoking cessation counseling done. Patient strogly advised to quit. DVT prophylaxis Lovenox History Interval history: Patient verbalized feeling better, she denies chest pain, shortness of breath or dizziness. Labs and nursing notes reviewed. Hospitalist Physical - Constitutional Vitals: Temp Pulse Resp BP Pulse Ox 98.0 F 82 14 109/58 98 02/13/17 15:44 02/14/17 07:19 02/14/17 07:00 02/14/17 07:00 02/14/17 07:33 General appearance: Present: mild distress - EENT Eyes: Present: PERRL ENT: hearing intact - Neck Neck: Present: supple - Respiratory Respiratory effort: normal Respiratory: bilateral: CTA - Cardiovascular Rhythm: regular Heart Sounds: Present: S1 & S2 - Abdominal General gastrointestinal: soft, non-tender - Integumentary Integumentary: Present: clear, warm, dry - Psychiatric Psychiatric: appropriate mood/affect - Neurologic Neurologic: moves all extremities - Allied Health Allied health notes reviewed: nursing Results - Labs CBC & Chem 7: 02/15/17 05:43 02/14/17 03:58 Labs: Laboratory Last Values WBC 7.8 K/mm3 (4.5-11.0) 02/14/17 03:58 RBC 3.92 M/mm3 (3.65-5.03) 02/14/17 03:58 Hgb 11.2 gm/dl (10.1-14.3) 02/14/17 03:58 Hct 34.8 % (30.3-42.9) 02/14/17 03:58 MCV 89 fl (79-97) 02/14/17 03:58 MCH 29 pg (28-32) 02/14/17 03:58 MCHC 32 % (30-34) 02/14/17 03:58 RDW 17.4 % (13.2-15.2) H 02/14/17 03:58 Plt Count 181 K/mm3 (140-440) 02/14/17 03:58 Lymph % (Auto) 33.2 % (13.4-35.0) 02/14/17 03:58 [place] % (Auto) 11.3 % (0.0-7.3) H 02/14/17 03:58 Eos % (Auto) 0.4 % (0.0-4.3) 02/14/17 03:58 Baso % (Auto) 0.5 % (0.0-1.8) 02/14/17 03:58 Lymph # 2.6 K/mm3 (1.2-5.4) 02/14/17 03:58 [place] # 0.9 K/mm3 (0.0-0.8) H 02/14/17 03:58 Eos # 0.0 K/mm3 (0.0-0.4) 02/14/17 03:58 Baso # 0.0 K/mm3 (0.0-0.1) 02/14/17 03:58 Add Manual Diff Complete 02/12/17 14:31 Seg Neutrophils % 54.6 % (40.0-70.0) 02/14/17 03:58 Seg Neutrophils # 4.3 K/mm3 (1.8-7.7) 02/14/17 03:58 PT 12.7 Sec. (12.2-14.9) 02/12/17 14:31 INR 0.91 (0.87-1.13) 02/12/17 14:31 APTT 22.0 Sec. (24.2-36.6) L 02/12/17 14:31 Activated Clotting Time 180 (74-137) H 02/13/17 16:16 D-Dimer 291.1 ng/mlDDU (0-234) H 02/12/17 14:31 Sodium 139 mmol/L (137-145) 02/14/17 03:58 Potassium 4.3 mmol/L (3.6-5.0) 02/14/17 03:58 Chloride 104.8 mmol/L (98-107) 02/14/17 03:58 Carbon Dioxide 21 mmol/L (22-30) L 02/14/17 03:58 Anion Gap 18 mmol/L 02/14/17 03:58 BUN 13 mg/dL (7-17) 02/14/17 03:58 Creatinine 0.7 mg/dL (0.7-1.2) 02/14/17 03:58 Estimated GFR > 60 ml/min 02/14/17 03:58 BUN/Creatinine Ratio 19 % 02/14/17 03:58 Glucose 82 mg/dL (65-100) 02/14/17 03:58 Calcium 8.7 mg/dL (8.4-10.2) 02/14/17 03:58 Total Bilirubin 0.20 mg/dL (0.1-1.2) 02/12/17 14:31 AST 13 units/L (5-40) 02/12/17 14:31 ALT 12 units/L (7-56) 02/12/17 14:31 Alkaline Phosphatase 93 units/L (35-129) 02/12/17 14:31 Total Creatine Kinase 956 units/L (30-135) H 02/14/17 03:58 CK-MB (CK-2) 73.3 ng/mL (0.0-4.0) H 02/14/17 03:58 CK-MB (CK-2) Rel Index 7.6 (0-4) H 02/14/17 03:58 Troponin T 1.600 ng/mL (0.00-0.029) H* D 02/14/17 03:58 NT-Pro-B Natriuret Pep 17.22 pg/mL (0-900) 02/12/17 14:31 Total Protein 7.4 g/dL (6.3-8.2) 02/12/17 14:31 Albumin 4.4 g/dL (3.9-5) 02/12/17 14:31 Albumin/Globulin Ratio 1.5 % 02/12/17 14:31 Triglycerides 169 mg/dL (2-149) H 02/12/17 20:20 Cholesterol 179 mg/dL (50-199) 02/12/17 20:20 LDL Cholesterol Direct 102 mg/dL (50-130) 02/12/17 20:20 HDL Cholesterol 44 mg/dL (40-59) 02/12/17 20:20 Cholesterol/HDL Ratio 4.06 % 02/12/17 20:20 TSH 8.520 mlU/mL (0.270-4.200) H 02/12/17 14:31 Urine Color Yellow (Yellow) 02/12/17 20:52 Urine Turbidity Clear (Clear) 02/12/17 20:52 Urine pH 5.0 (5.0-7.0) 02/12/17 20:52 Ur Specific Casey 1.025 (1.003-1.030) 02/12/17 20:52 Urine Protein 30 mg/dl mg/dL (Negative) 02/12/17 20:52 Urine Glucose (UA) Neg mg/dL (Negative) 02/12/17 20:52 Urine Ketones Neg mg/dL (Negative) 02/12/17 20:52 Urine Blood Neg (Negative) 02/12/17 20:52 Urine Nitrite Neg (Negative) 02/12/17 20:52 Urine Bilirubin Neg (Negative) 02/12/17 20:52 Urine Urobilinogen < 2.0 mg/dL (<2.0) 02/12/17 20:52 Ur Leukocyte Esterase Neg (Negative) 02/12/17 20:52 Urine WBC (Auto) 2.0 /HPF (0.0-6.0) 02/12/17 20:52 Urine RBC (Auto) 4.0 /HPF (0.0-6.0) 02/12/17 20:52 U Epithel Cells (Auto) 5.0 /HPF (0-13.0) 02/12/17 20:52 Urine Mucus 1+ /HPF 02/12/17 20:52 Urine Opiates Screen Presumptive negative 02/12/17 20:52 Urine Methadone Screen Presumptive negative 02/12/17 20:52 Ur Barbiturates Screen Presumptive negative 02/12/17 20:52 Ur Phencyclidine Scrn Presumptive negative 02/12/17 20:52 Ur Amphetamines Screen Presumptive negative 02/12/17 20:52 U Benzodiazepines Scrn Presumptive positive 02/12/17 20:52 Urine Cocaine Screen Presumptive negative 02/12/17 20:52 U Marijuana (THC) Screen Presumptive negative 02/12/17 20:52 Drugs of Abuse Note Disclamer 02/12/17 20:52 <JOSE DANIEL KENDALL - Last Filed: 02/16/17 07:22> Assessment and Plan Assessment and plan: I saw and evaluated the patient. I agree with the findings and the plan of care as documented in the Nurse Practitioner's~note, with the following corrections and additions. Hospitalist Physical - Constitutional Vitals: Temp Pulse Resp BP Pulse Ox 98.3 F 59 L 14 102/63 98 02/14/17 12:00 02/14/17 14:30 02/14/17 14:30 02/14/17 14:30 02/14/17 13:30 Results - Labs CBC & Chem 7: 02/15/17 05:43 02/14/17 03:58 Labs: Laboratory Last Values WBC 7.8 K/mm3 (4.5-11.0) 02/14/17 03:58 RBC 3.92 M/mm3 (3.65-5.03) 02/14/17 03:58 Hgb 11.2 gm/dl (10.1-14.3) 02/14/17 03:58 Hct 34.8 % (30.3-42.9) 02/14/17 03:58 MCV 89 fl (79-97) 02/14/17 03:58 MCH 29 pg (28-32) 02/14/17 03:58 MCHC 32 % (30-34) 02/14/17 03:58 RDW 17.4 % (13.2-15.2) H 02/14/17 03:58 Plt Count 181 K/mm3 (140-440) 02/14/17 03:58 Lymph % (Auto) 33.2 % (13.4-35.0) 02/14/17 03:58 [place] % (Auto) 11.3 % (0.0-7.3) H 02/14/17 03:58 Eos % (Auto) 0.4 % (0.0-4.3) 02/14/17 03:58 Baso % (Auto) 0.5 % (0.0-1.8) 02/14/17 03:58 Lymph # 2.6 K/mm3 (1.2-5.4) 02/14/17 03:58 [place] # 0.9 K/mm3 (0.0-0.8) H 02/14/17 03:58 Eos # 0.0 K/mm3 (0.0-0.4) 02/14/17 03:58 Baso # 0.0 K/mm3 (0.0-0.1) 02/14/17 03:58 Add Manual Diff Complete 02/12/17 14:31 Seg Neutrophils % 54.6 % (40.0-70.0) 02/14/17 03:58 Seg Neutrophils # 4.3 K/mm3 (1.8-7.7) 02/14/17 03:58 PT 12.7 Sec. (12.2-14.9) 02/12/17 14:31 INR 0.91 (0.87-1.13) 02/12/17 14:31 APTT 22.0 Sec. (24.2-36.6) L 02/12/17 14:31 Activated Clotting Time 180 (74-137) H 02/13/17 16:16 D-Dimer 291.1 ng/mlDDU (0-234) H 02/12/17 14:31 Sodium 139 mmol/L (137-145) 02/14/17 03:58 Potassium 4.3 mmol/L (3.6-5.0) 02/14/17 03:58 Chloride 104.8 mmol/L (98-107) 02/14/17 03:58 Carbon Dioxide 21 mmol/L (22-30) L 02/14/17 03:58 Anion Gap 18 mmol/L 02/14/17 03:58 BUN 13 mg/dL (7-17) 02/14/17 03:58 Creatinine 0.7 mg/dL (0.7-1.2) 02/14/17 03:58 Estimated GFR > 60 ml/min 02/14/17 03:58 BUN/Creatinine Ratio 19 % 02/14/17 03:58 Glucose 82 mg/dL (65-100) 02/14/17 03:58 Calcium 8.7 mg/dL (8.4-10.2) 02/14/17 03:58 Total Bilirubin 0.20 mg/dL (0.1-1.2) 02/12/17 14:31 AST 13 units/L (5-40) 02/12/17 14:31 ALT 12 units/L (7-56) 02/12/17 14:31 Alkaline Phosphatase 93 units/L (35-129) 02/12/17 14:31 Total Creatine Kinase 956 units/L (30-135) H 02/14/17 03:58 CK-MB (CK-2) 73.3 ng/mL (0.0-4.0) H 02/14/17 03:58 CK-MB (CK-2) Rel Index 7.6 (0-4) H 02/14/17 03:58 Troponin T 1.600 ng/mL (0.00-0.029) H* D 02/14/17 03:58 NT-Pro-B Natriuret Pep 17.22 pg/mL (0-900) 02/12/17 14:31 Total Protein 7.4 g/dL (6.3-8.2) 02/12/17 14:31 Albumin 4.4 g/dL (3.9-5) 02/12/17 14:31 Albumin/Globulin Ratio 1.5 % 02/12/17 14:31 Triglycerides 169 mg/dL (2-149) H 02/12/17 20:20 Cholesterol 179 mg/dL (50-199) 02/12/17 20:20 LDL Cholesterol Direct 102 mg/dL (50-130) 02/12/17 20:20 HDL Cholesterol 44 mg/dL (40-59) 02/12/17 20:20 Cholesterol/HDL Ratio 4.06 % 02/12/17 20:20 TSH 8.520 mlU/mL (0.270-4.200) H 02/12/17 14:31 Urine Color Yellow (Yellow) 02/12/17 20:52 Urine Turbidity Clear (Clear) 02/12/17 20:52 Urine pH 5.0 (5.0-7.0) 02/12/17 20:52 Ur Specific [place] 1.025 (1.003-1.030) 02/12/17 20:52 Urine Protein 30 mg/dl mg/dL (Negative) 02/12/17 20:52 Urine Glucose (UA) Neg mg/dL (Negative) 02/12/17 20:52 Urine Ketones Neg mg/dL (Negative) 02/12/17 20:52 Urine Blood Neg (Negative) 02/12/17 20:52 Urine Nitrite Neg (Negative) 02/12/17 20:52 Urine Bilirubin Neg (Negative) 02/12/17 20:52 Urine Urobilinogen < 2.0 mg/dL (<2.0) 02/12/17 20:52 Ur Leukocyte Esterase Neg (Negative) 02/12/17 20:52 Urine WBC (Auto) 2.0 /HPF (0.0-6.0) 02/12/17 20:52 Urine RBC (Auto) 4.0 /HPF (0.0-6.0) 02/12/17 20:52 U Epithel Cells (Auto) 5.0 /HPF (0-13.0) 02/12/17 20:52 Urine Mucus 1+ /HPF 02/12/17 20:52 Urine Opiates Screen Presumptive negative 02/12/17 20:52 Urine Methadone Screen Presumptive negative 02/12/17 20:52 Ur Barbiturates Screen Presumptive negative 02/12/17 20:52 Ur Phencyclidine Scrn Presumptive negative 02/12/17 20:52 Ur Amphetamines Screen Presumptive negative 02/12/17 20:52 U Benzodiazepines Scrn Presumptive positive 02/12/17 20:52 Urine Cocaine Screen Presumptive negative 02/12/17 20:52 U Marijuana (THC) Screen Presumptive negative 02/12/17 20:52 Drugs of Abuse Note Disclamer 02/12/17 20:52
[2017-02-14] MEDS: PLAVIX PO SCH (10:14)
[2017-02-14] MEDS: IMDUR PO SCH (10:14)
[2017-02-14] MEDS: ECOTRIN PO SCH (10:14)
[2017-02-14] MEDS: PEPCID PO SCH (10:14)
--- NOTE | 2017-02-14 11:34 | Consultation ---
PULMONARY CRITICAL CARE CONSULTATION CONSULTING PHYSICIAN: Laurent Mason M.D. REASON FOR CONSULTATION: Acute ST elevation CO with symptomatic bradycardia, status post catheterization, need for ICU admission post-cath. HISTORY OF PRESENT ILLNESS: The patient is a 61-year-old -[place] female with past medical history significant in this context for diagnosis of coronary artery disease, but also CVA with I believe intracranial aneurysm that has been repaired. She came into the Emergency Room accompanied by her for chest pain, diaphoresis, and syncope. According to him, he tried to stand her up and she passed out. When EMS came there they found her to be bradycardic with heart block on the EKG. She was externally placed and brought into the Emergency Room. In the Emergency Room, she was lethargic, but she was able to protect her airway. Evaluation was started. She was admitted to the medical floor with a diagnosis of symptomatic bradycardia and acute coronary syndrome. Evaluation by the tire spotter today revealed ST elevations in the inferior leads compatible indeed with her bradycardia. She was taken into [facility] where she was found to have a complete occlusion of the mid RCA, successful angioplasty and stenting was done, JAYDE 3 flow was restored. She was started on Aggrastat and ICU admission was requested. When I stopped by to see her, she was lying in bed; in retrospect, she does have a significant element of dementia. She denied any acute chest pain. She was feeling better. She seemed to think that her chest pain initially was pleuritic, but again that is about as much of the history I have. She gives me a 20+ pack year tobacco smoking history stating that she smokes up to 2 packs of cigarettes per day. I unable to corroborate this and I will be discussing with her . This is much of the history of presentation as I have. PAST MEDICAL HISTORY: Again, significant for coronary artery disease, cerebrovascular accident, element of dementia, possible tobacco use disorder. PAST SURGICAL HISTORY: She has had a repair of a brain aneurysm with coil placement and now she has got the stent placement. MEDICATIONS: She was on at the time I stopped by to see were reviewed. Pertinent medications include the following: Albuterol 2.5 mg inhaled q. 4 hours p.r.n. shortness of breath or wheezing, aspirin 325 mg p.o. daily, Lipitor 40 mg p.o. at bedtime, Plavix 75 mg p.o. daily, Imdur 30 mg p.o. daily. She is on Synthroid 100 mcg p.o. daily, Lopressor 50 mg p.o. b.i.d., and she was on an Aggrastat drip being adjusted per protocol. DIET: Slightly obese lady. Denies acute weight loss or gain preceding few weeks to months. FAMILY AND SOCIAL HISTORY: Significant for coronary artery disease and hypertension. She lives in the community. She gives me a 2-pack per day tobacco smoking history, but again I will be clearing this with her family, had denied alcohol or illicit drug use or abuse at presentation. REVIEW OF SYSTEMS: Mostly difficult to obtain secondary to her dementia history. Since she has been here, no gross hematochezia or melena and the patient denied any bleeding diathesis. No history of menorrhagia. No gross hematuria. She had a syncope. No new onset focal weakness. Review of systems is otherwise unobtainable or as in the body of history above. PHYSICAL EXAMINATION: VITAL SIGNS: At presentation in the Emergency Room, review of the vital signs; she had a temperature of 98.5, pulse 66, respiratory rate 19, blood pressure 133/70, oxygen sats were recorded as 100%, inspired oxygen concentration was not recorded. GENERAL: She was normocephalic, atraumatic, talking to me in full sentences, in mild respiratory distress at best. HEAD, EYES, EARS, NOSE, AND THROAT: No gross jugular venous distention. Oropharynx is moist. There is a Mallampati #3 oropharynx with mild oropharyngeal pallor grossly. No palpable lymph nodes in the supraclavicular or submandibular lymph node chains. No goiter. LUNGS: Auscultation of both lung coffman, diminished left lower lobe air entry. No wheezing. Normal respiratory effort. HEART: Heart sounds 1 and 2 were heard. There were regular in rate and rhythm at the time of my evaluation. She had a soft systolic murmur at the apex. No rubs. ABDOMEN: Soft, bowel sounds are positive, nontender, no palpable hepatosplenomegaly. EXTREMITIES: Without overt digital clubbing, no cyanosis, no pedal edema. She had an arterial line in the right groin region where she had a cath procedure, presumably. No bleeding around the stoma. NEUROLOGIC: Pupils were equal, round, and reactive to light and accommodation. Extraocular muscles and movements appeared intact. There were grossly no focal abnormality. She moved all extremities, slightly weak power in both lower extremities. No fasciculations. No spasticity. The skin was of Normal turgor. No cellulitis, no rash. Her insight though was poor. Her affect was flat and poor memory. LABORATORY DATA: From my review are as follows: White cell count 8200, hemoglobin 12.5, hematocrit 39.2 and platelet count 225. INR was 0.91. D-dimer was elevated at 291. Serum sodium 142, potassium 3.8, chloride 104, bicarbonate 18, BUN 20, creatinine 1.1, glucose was 82. Liver function tests essentially within normal limits. Cardiac enzymes were normal at presentation. LDL cholesterol 102. TSH elevated at 8.52. Urinalysis was unremarkable. Urine drug screen was presumptive positive for benzodiazepines and otherwise negative. No microbiology studies. DIAGNOSTIC DATA: Chest x-ray was done. I have reviewed the chest x-ray. Essentially, slight increased interstitial markings. Borderline cardiomegaly, no gross pneumothorax, no gross bony fracture. No acute process otherwise. A CT scan was also done of the head and brain that was read as chronic extensive ischemic changes, no acute process. A 2D echocardiogram has been done, I do not have the report. I have reviewed the cardiac catheterization note. ASSESSMENT AND PLAN: We have an elderly lady here in with an acute coronary syndrome. The overall assessment will be; 1. Acute ST elevation myocardial infarction. 2. Symptomatic bradycardia, presumably secondary to the myocardial infarction and right coronary artery occlusion. 3. Ojtpy-sn-wjtosay encephalopathy. 4. History of hypothyroidism. 5. Coronary artery disease. 6. Elevated D-dimer. 7. Dementia. 8. History of a cerebrovascular accident, status post aneurysmal coil repair. PLAN: 1. She is status post left heart catheterization and stenting. 2. Continue her antiplatelet therapy, continue Plavix, continue Aggrastat. Follow her pulse and if necessary, she may require pacing. 3. I will add gastrointestinal prophylaxis, especially while on all this anticoagulation and antiplatelet therapy. I have advised for tobacco cessation, if she is indeed a smoker I will be discussing with the family otherwise. 4. I note the elevated D-dimer, while it is unclear if her history is accurate. She did mention a pleuritic component of her chest pain. For this, I think that we will need to do a venous thromboembolic disorder workup. If she is able to do a V/Q scan, I will get one down the road as she would need treatment for that. If she does have VTE, in the meantime lower extremity Dopplers will be ordered. Continue optimization of medical therapy with beta karen therapy, nitrate therapy and other therapies per the tire spotter. Flu and pneumonia vaccination will be addressed per protocol. Thank you very much for the consult. We will follow along. We will make further recommendations as picture progresses/becomes clearer. At this time, I spent about 35 to 40 minutes of time with her. She is critically ill. In the short term, she will be observed in the Intensive Care Unit and hopefully discharged or transferred to the medical floor as early as tomorrow. JOB# [id number] ALEXA/JUANY
--- NOTE | 2017-02-14 13:29 | Progress Note ---
Assessment and Plan STEMI s/p PCI of mid RCA, within prior stent using drug eluting stent EF 55-60% on echocardiogram Hypothyroidism TSH 8.5 Hx of CAD Prior CVA Hypertension Tobacco abuse Recommendations: Continue ASA and Plavix, beta blockers, statin and long-acting oral nitrates. Advised smoking cessation. Ok to transfer telemetry. Subjective Date of service: 02/14/17 Interval history: Patient is sitting up in bedside chair and appears well. She denies chest pain. Objective Vital Signs Temp Pulse Pulse Resp Resp BP Pulse Ox 02/14/17 12:00 58 L 17 102/63 100 02/14/17 11:30 63 13 101/54 100 02/14/17 11:00 64 12 101/54 100 02/14/17 10:30 74 15 107/59 98 02/14/17 10:15 80 123/108 02/14/17 10:14 75 123/108 02/14/17 10:00 73 17 98/58 02/14/17 09:30 70 16 81/50 97 02/14/17 09:00 64 10 L 101/61 96 02/14/17 08:30 58 L 13 101/59 98 02/14/17 08:00 98 F 66 12 116/79 98 02/14/17 07:33 98 02/14/17 07:30 59 L 13 112/59 98 02/14/17 07:19 82 02/14/17 07:00 61 14 109/58 02/14/17 06:33 10 L 02/14/17 06:30 60 12 108/56 98 02/14/17 06:00 60 9 L 94/55 98 02/14/17 05:30 64 14 116/62 02/14/17 05:00 72 12 115/52 98 02/14/17 04:30 62 12 90/49 98 02/14/17 04:00 62 62 12 118/66 100 02/14/17 03:30 59 L 10 L 115/59 100 02/14/17 03:00 61 14 97/58 02/14/17 02:30 60 12 109/59 99 02/14/17 02:00 70 13 126/66 97 02/14/17 01:30 60 13 117/61 100 02/14/17 01:19 12 02/14/17 01:00 59 L 13 122/69 100 02/14/17 00:30 60 12 120/66 100 02/14/17 00:20 58 L 120/66 02/14/17 00:19 12 02/14/17 00:00 69 69 19 116/67 100 02/13/17 23:30 58 L 14 119/63 100 02/13/17 23:00 65 13 114/59 99 02/13/17 22:30 62 16 116/57 02/13/17 22:00 59 L 16 126/63 100 02/13/17 21:48 58 L 02/13/17 21:00 59 L 14 130/66 100 02/13/17 20:48 57 L 02/13/17 20:34 61 18 131/68 100 02/13/17 20:30 58 L 10 L 131/68 100 02/13/17 20:20 60 13 122/62 100 02/13/17 20:10 58 L 14 122/62 100 02/13/17 20:07 12 02/13/17 20:00 58 L 19 122/62 100 02/13/17 19:50 57 L 14 122/62 100 02/13/17 19:48 100 02/13/17 19:40 64 13 124/63 100 02/13/17 19:37 13 02/13/17 19:35 12 02/13/17 19:30 57 L 12 124/63 100 02/13/17 19:20 57 L 10 L 133/76 100 02/13/17 19:10 61 13 127/65 100 02/13/17 19:00 58 L 15 127/65 100 02/13/17 18:50 59 L 11 L 125/66 100 02/13/17 18:40 61 11 L 120/65 100 02/13/17 18:30 57 L 14 120/65 100 02/13/17 18:20 56 L 15 120/63 100 02/13/17 18:10 63 13 131/62 100 02/13/17 18:00 56 L 16 136/65 100 02/13/17 17:50 57 L 16 136/65 96 02/13/17 17:40 54 L 15 125/65 100 02/13/17 17:30 55 L 17 125/65 100 02/13/17 17:20 58 L 17 117/68 100 02/13/17 17:10 55 L 17 100 02/13/17 17:07 56 L 11 L 100 02/13/17 17:00 100 02/13/17 16:50 56 L 15 114/61 99 02/13/17 16:43 56 L 108/61 02/13/17 16:40 56 L 16 108/61 98 02/13/17 16:30 58 L 13 120/58 100 02/13/17 16:21 56 L 12 155/65 100 02/13/17 16:16 100 02/13/17 16:11 57 L 18 133/71 100 02/13/17 16:00 59 L 12 142/64 99 02/13/17 15:51 53 L 13 124/70 100 02/13/17 15:44 98.0 F 02/13/17 15:41 55 L 15 100 02/13/17 15:30 55 L 10 L 128/65 02/13/17 15:20 57 L 11 L 128/65 83 L 02/13/17 15:12 61 12 02/13/17 14:30 57 L 16 107/71 100 02/13/17 14:25 98.1 F 60 18 100/76 96 - Physical Examination General: No Apparent Distress HEENT: Positive: PERRL Cardiac: Positive: Reg Rate and Rhythm Neuro: Positive: Grossly Intact Extremities: Absent: edema - Labs and Meds Cardiac Enzymes 02/14/17 Range/Units 03:58 CK-MB (CK-2) 73.3 H (0.0-4.0) ng/mL CBC 02/14/17 Range/Units 03:58 WBC 7.8 (4.5-11.0) K/mm3 RBC 3.92 (3.65-5.03) M/mm3 Hgb 11.2 (10.1-14.3) gm/dl Hct 34.8 (30.3-42.9) % Plt Count 181 (140-440) K/mm3 Lymph # 2.6 (1.2-5.4) K/mm3 [place] # 0.9 H (0.0-0.8) K/mm3 Eos # 0.0 (0.0-0.4) K/mm3 Baso # 0.0 (0.0-0.1) K/mm3 Comprehensive Metabolic Panel 02/14/17 Range/Units 03:58 Sodium 139 (137-145) mmol/L Potassium 4.3 (3.6-5.0) mmol/L Chloride 104.8 (98-107) mmol/L Carbon Dioxide 21 L (22-30) mmol/L BUN 13 (7-17) mg/dL Creatinine 0.7 (0.7-1.2) mg/dL Glucose 82 (65-100) mg/dL Calcium 8.7 (8.4-10.2) mg/dL
--- NOTE | 2017-02-14 13:29 | Progress Note ---
Subjective Date of service: 02/14/17 Objective Vital Signs - 12hr 02/14/17 02/14/17 02/14/17 01:30 02:00 02:30 Temperature Pulse Rate 60 70 60 Pulse Rate [ From Monitor] Respiratory 13 13 12 Rate Blood Pressure 117/61 126/66 109/59 O2 Sat by Pulse 100 97 99 Oximetry 02/14/17 02/14/17 02/14/17 03:00 03:30 04:00 Temperature Pulse Rate 61 59 L 62 Pulse Rate [ 62 From Monitor] Respiratory 14 10 L 12 Rate Blood Pressure 97/58 115/59 118/66 O2 Sat by Pulse 100 100 Oximetry 02/14/17 02/14/17 02/14/17 04:30 05:00 05:30 Temperature Pulse Rate 62 72 64 Pulse Rate [ From Monitor] Respiratory 12 12 14 Rate Blood Pressure 90/49 115/52 116/62 O2 Sat by Pulse 98 98 Oximetry 02/14/17 02/14/17 02/14/17 06:00 06:30 06:33 Temperature Pulse Rate 60 60 Pulse Rate [ From Monitor] Respiratory 9 L 12 10 L Rate Blood Pressure 94/55 108/56 O2 Sat by Pulse 98 98 Oximetry 02/14/17 02/14/17 02/14/17 07:00 07:19 07:30 Temperature Pulse Rate 61 82 59 L Pulse Rate [ From Monitor] Respiratory 14 13 Rate Blood Pressure 109/58 112/59 O2 Sat by Pulse 98 Oximetry 02/14/17 02/14/17 02/14/17 07:33 08:00 08:30 Temperature 98 F Pulse Rate 66 58 L Pulse Rate [ From Monitor] Respiratory 12 13 Rate Blood Pressure 116/79 101/59 O2 Sat by Pulse 98 98 98 Oximetry 02/14/17 02/14/17 02/14/17 09:00 09:30 10:00 Temperature Pulse Rate 64 70 73 Pulse Rate [ From Monitor] Respiratory 10 L 16 17 Rate Blood Pressure 101/61 81/50 98/58 O2 Sat by Pulse 96 97 Oximetry 02/14/17 02/14/17 02/14/17 10:14 10:15 10:30 Temperature Pulse Rate 75 80 74 Pulse Rate [ From Monitor] Respiratory 15 Rate Blood Pressure 123/108 123/108 107/59 O2 Sat by Pulse 98 Oximetry 02/14/17 02/14/17 02/14/17 11:00 11:30 12:00 Temperature Pulse Rate 64 63 58 L Pulse Rate [ From Monitor] Respiratory 12 13 17 Rate Blood Pressure 101/54 101/54 102/63 O2 Sat by Pulse 100 100 100 Oximetry CBC and BMP: 02/14/17 03:58 02/14/17 03:58 ABG, PT/INR, D-dimer: PT/INR, D-dimer PT 12.7 Sec. (12.2-14.9) 02/12/17 14:31 INR 0.91 (0.87-1.13) 02/12/17 14:31 D-Dimer 291.1 ng/mlDDU (0-234) H 02/12/17 14:31 Abnormal lab findings: Abnormal Labs 02/12/17 02/12/17 02/12/17 20:20 20:20 22:59 RDW [place] % (Auto) [place] # Activated Clotting Time Carbon Dioxide Total Creatine Kinase CK-MB (CK-2) CK-MB (CK-2) Rel Index Troponin T 0.077 H D 0.132 H* D Triglycerides 169 H 02/13/17 02/13/17 02/14/17 13:45 16:16 03:58 RDW 17.4 H [place] % (Auto) 11.3 H [place] # 0.9 H Activated Clotting Time 224 H 180 H Carbon Dioxide Total Creatine Kinase CK-MB (CK-2) CK-MB (CK-2) Rel Index Troponin T Triglycerides 02/14/17 03:58 RDW [place] % (Auto) [place] # Activated Clotting Time Carbon Dioxide 21 L Total Creatine Kinase 956 H CK-MB (CK-2) 73.3 H CK-MB (CK-2) Rel Index 7.6 H Troponin T 1.600 H* D Triglycerides
[2017-02-15 06:32] LABS: Hematocrit 29.6 % (30.3-42.9); Hemoglobin 9.9 gm/dl (10.1-14.3)
[2017-02-15] MEDS: SYNTHROID PO SCH ×2 (06:39)
--- NOTE | 2017-02-15 07:41 | Progress Note ---
Hospitalist Physical - Constitutional Vitals: Temp Pulse Resp BP Pulse Ox 97.9 F 70 18 130/70 97 02/14/17 19:51 02/14/17 22:29 02/14/17 19:51 02/14/17 22:29 02/14/17 21:43 General appearance: Present: mild distress Results - Labs CBC & Chem 7: 02/15/17 05:43 02/14/17 03:58 Labs: Laboratory Last Values WBC 7.8 K/mm3 (4.5-11.0) 02/14/17 03:58 RBC 3.92 M/mm3 (3.65-5.03) 02/14/17 03:58 Hgb 9.9 gm/dl (10.1-14.3) L 02/15/17 05:43 Hct 29.6 % (30.3-42.9) L 02/15/17 05:43 MCV 89 fl (79-97) 02/14/17 03:58 MCH 29 pg (28-32) 02/14/17 03:58 MCHC 32 % (30-34) 02/14/17 03:58 RDW 17.4 % (13.2-15.2) H 02/14/17 03:58 Plt Count 177 K/mm3 (140-440) 02/15/17 05:43 Lymph % (Auto) 33.2 % (13.4-35.0) 02/14/17 03:58 [place] % (Auto) 11.3 % (0.0-7.3) H 02/14/17 03:58 Eos % (Auto) 0.4 % (0.0-4.3) 02/14/17 03:58 Baso % (Auto) 0.5 % (0.0-1.8) 02/14/17 03:58 Lymph # 2.6 K/mm3 (1.2-5.4) 02/14/17 03:58 [place] # 0.9 K/mm3 (0.0-0.8) H 02/14/17 03:58 Eos # 0.0 K/mm3 (0.0-0.4) 02/14/17 03:58 Baso # 0.0 K/mm3 (0.0-0.1) 02/14/17 03:58 Add Manual Diff Complete 02/12/17 14:31 Seg Neutrophils % 54.6 % (40.0-70.0) 02/14/17 03:58 Seg Neutrophils # 4.3 K/mm3 (1.8-7.7) 02/14/17 03:58 PT 12.7 Sec. (12.2-14.9) 02/12/17 14:31 INR 0.91 (0.87-1.13) 02/12/17 14:31 APTT 22.0 Sec. (24.2-36.6) L 02/12/17 14:31 Activated Clotting Time 180 (74-137) H 02/13/17 16:16 D-Dimer 291.1 ng/mlDDU (0-234) H 02/12/17 14:31 Sodium 139 mmol/L (137-145) 02/14/17 03:58 Potassium 4.3 mmol/L (3.6-5.0) 02/14/17 03:58 Chloride 104.8 mmol/L (98-107) 02/14/17 03:58 Carbon Dioxide 21 mmol/L (22-30) L 02/14/17 03:58 Anion Gap 18 mmol/L 02/14/17 03:58 BUN 13 mg/dL (7-17) 02/14/17 03:58 Creatinine 0.7 mg/dL (0.7-1.2) 02/14/17 03:58 Estimated GFR > 60 ml/min 02/14/17 03:58 BUN/Creatinine Ratio 19 % 02/14/17 03:58 Glucose 82 mg/dL (65-100) 02/14/17 03:58 Calcium 8.7 mg/dL (8.4-10.2) 02/14/17 03:58 Total Bilirubin 0.20 mg/dL (0.1-1.2) 02/12/17 14:31 AST 13 units/L (5-40) 02/12/17 14:31 ALT 12 units/L (7-56) 02/12/17 14:31 Alkaline Phosphatase 93 units/L (35-129) 02/12/17 14:31 Total Creatine Kinase 956 units/L (30-135) H 02/14/17 03:58 CK-MB (CK-2) 73.3 ng/mL (0.0-4.0) H 02/14/17 03:58 CK-MB (CK-2) Rel Index 7.6 (0-4) H 02/14/17 03:58 Troponin T 1.600 ng/mL (0.00-0.029) H* D 02/14/17 03:58 NT-Pro-B Natriuret Pep 17.22 pg/mL (0-900) 02/12/17 14:31 Total Protein 7.4 g/dL (6.3-8.2) 02/12/17 14:31 Albumin 4.4 g/dL (3.9-5) 02/12/17 14:31 Albumin/Globulin Ratio 1.5 % 02/12/17 14:31 Triglycerides 169 mg/dL (2-149) H 02/12/17 20:20 Cholesterol 179 mg/dL (50-199) 02/12/17 20:20 LDL Cholesterol Direct 102 mg/dL (50-130) 02/12/17 20:20 HDL Cholesterol 44 mg/dL (40-59) 02/12/17 20:20 Cholesterol/HDL Ratio 4.06 % 02/12/17 20:20 TSH 8.520 mlU/mL (0.270-4.200) H 02/12/17 14:31 Urine Color Yellow (Yellow) 02/12/17 20:52 Urine Turbidity Clear (Clear) 02/12/17 20:52 Urine pH 5.0 (5.0-7.0) 02/12/17 20:52 Ur Specific [place] 1.025 (1.003-1.030) 02/12/17 20:52 Urine Protein 30 mg/dl mg/dL (Negative) 02/12/17 20:52 Urine Glucose (UA) Neg mg/dL (Negative) 02/12/17 20:52 Urine Ketones Neg mg/dL (Negative) 02/12/17 20:52 Urine Blood Neg (Negative) 02/12/17 20:52 Urine Nitrite Neg (Negative) 02/12/17 20:52 Urine Bilirubin Neg (Negative) 02/12/17 20:52 Urine Urobilinogen < 2.0 mg/dL (<2.0) 02/12/17 20:52 Ur Leukocyte Esterase Neg (Negative) 02/12/17 20:52 Urine WBC (Auto) 2.0 /HPF (0.0-6.0) 02/12/17 20:52 Urine RBC (Auto) 4.0 /HPF (0.0-6.0) 02/12/17 20:52 U Epithel Cells (Auto) 5.0 /HPF (0-13.0) 02/12/17 20:52 Urine Mucus 1+ /HPF 02/12/17 20:52 Urine Opiates Screen Presumptive negative 02/12/17 20:52 Urine Methadone Screen Presumptive negative 02/12/17 20:52 Ur Barbiturates Screen Presumptive negative 02/12/17 20:52 Ur Phencyclidine Scrn Presumptive negative 02/12/17 20:52 Ur Amphetamines Screen Presumptive negative 02/12/17 20:52 U Benzodiazepines Scrn Presumptive positive 02/12/17 20:52 Urine Cocaine Screen Presumptive negative 02/12/17 20:52 U Marijuana (THC) Screen Presumptive negative 02/12/17 20:52 Drugs of Abuse Note Disclamer 02/12/17 20:52
[2017-02-15 08:35] VITALS: BP 99/58
[2017-02-15] MEDS: PEPCID PO SCH (09:20)
[2017-02-15] MEDS: ECOTRIN PO SCH (09:20)
[2017-02-15] MEDS: PLAVIX PO SCH (09:20)
[2017-02-15] MEDS: LOPRESSOR PO SCH (09:24)
[2017-02-15] MEDS: IMDUR PO SCH (09:25)
--- NOTE | 2017-02-15 10:15 | Discharge Summary ---
<RANGEL JOHNSON - Last Filed: 02/15/17 20:19> Providers - Providers Date of Admission: 02/12/17 18:41 Date of discharge: 02/15/17 Attending physician: JOSE DANIEL KENDALL MD 02/13/17 Consult to Cardiac Rehabilitation [CONS] Routine Reason For Exam: post pci 02/13/17 01:33 Consult to Cardiology [CONS] Routine Consulting Provider: OCTAVIA PICHARDO Reason For Exam: elevated troponin 02/13/17 14:31 Consult to Physician [CONS] Routine Consulting Provider: MADINA PFEIFFER Reason For Exam: S/P RCA stent Place consult to:: yes Notified:: yes Phone number called:: yes Was contact made?: Yes If yes, spoke with:: Glen Time called:: 15:00 Comment:: on the unit Primary care physician: INDUSTRIAL MANUFACTURING TECHNICIAN Hospitalization Condition: Stable Hospital course: Patient is a 61-year-old female presents to the emergency department by EMS from home after she had complaints of chest pain, passed out and was found to have bradycardia and concern for a heart block on EMS EKG. 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 CT of the head showed no acute process. CXR WNL. Echocardiogram revealed with ef 55%-60%. Carotid doppler WNL. CTA no evidence of PE. negative VL LE doppler. Patient presented with chest pain and syncope due to STEMI. Cardiac cath showed 100% oclusion of the mid RCA. S/P RCA Stent within prior PCI with drug eluting stent and tolerated the procedure well. She was treated with IV fluid hydration, antilipid agents, antihypertensive medications. Serum TSH very high and was treated with IV synthroid supplementation for myxedema and Continue oral synthroid. Se was counseled about smoking cessation and she agreed that she will quit smoking. Patient is clinically improved and asymptomatic at present time. Patient advised to follow-up with [facility] within 2 weeks of discharge. 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 Elevated D-dimer Myxedema Hx CAD (coronary artery disease) Metabolic acidosis due to myxedema Tobacco abuse Disposition: TO HOME OR SELFCARE Time spent for discharge: 35 minutes Core Measure Documentation - Palliative Care Palliative Care/ Comfort Measures: Not Applicable - Core Measures Any of the following diagnoses?: none Exam - Constitutional Vitals: Temp Pulse Resp BP Pulse Ox 97.9 F 60 18 99/58 99 02/15/17 08:34 02/15/17 09:25 02/15/17 08:34 02/15/17 09:25 02/15/17 10:07 General appearance: Present: no acute distress - EENT Eyes: Present: PERRL ENT: hearing intact - Neck Neck: Present: supple - Respiratory Respiratory effort: normal Respiratory: bilateral: CTA - Cardiovascular Rhythm: regular Heart Sounds: Present: S1 & S2 - Abdominal General gastrointestinal: Present: soft, non-tender Female genitourinary: Present: deferred - Rectal Rectal Exam: deferred - Integumentary Integumentary: Present: clear, warm, dry - Musculoskeletal Musculoskeletal: strength equal bilaterally - Psychiatric Psychiatric: appropriate mood/affect - Neurologic Neurologic: moves all extremities - Allied Health Allied health notes reviewed: nursing Plan Weight Bearing Status: Weight Bear as Tolerated Diet: low fat, low cholesterol, low salt Follow up with: HENRIQUE MEJIA MD [Primary Care Provider] - 3-5 Days RAMON JAVED MD [Staff Physician] - 7 Days Prescriptions: AtorvaSTATin [Lipitor] 40 mg PO QHS #30 tablet Aspirin [Aspirin BABY CHEW TAB] 81 mg PO QDAY 30 Days tab.chew Clopidogrel [Plavix] 75 mg PO QDAY 30 Days tablet ISOSORBIDE MONOnitrate [Imdur ER] 30 mg PO QDAY 30 Days tablet Levothyroxine [Synthroid] 100 mcg PO DAILY@0600 30 Days tablet Metoprolol [Lopressor TAB] 50 mg PO BID 30 Days tablet <JOSE DANIEL KENDALL - Last Filed: 02/16/17 07:22> Providers - Providers Date of Admission: 02/12/17 18:41 Attending physician: JOSE DANIEL KENDALL MD 02/12/17 Consult to Cardiac Rehabilitation [CONS] Routine Reason For Exam: Phase I 02/13/17 Consult to Cardiac Rehabilitation [CONS] Routine Reason For Exam: post pci 02/13/17 01:33 Consult to Cardiology [CONS] Routine Consulting Provider: OCTAVIA PICHARDO Reason For Exam: elevated troponin 02/13/17 14:31 Consult to Physician [CONS] Routine Consulting Provider: MADINA PFEIFFER Reason For Exam: S/P RCA stent Place consult to:: yes Notified:: yes Phone number called:: yes Was contact made?: Yes If yes, spoke with:: Joiwaqas Time called:: 15:00 Comment:: on the unit Primary care physician: INDUSTRIAL MANUFACTURING TECHNICIAN Hospitalization Hospital course: I saw and evaluated the patient. I agree with the findings and the plan of care as documented in the Nurse Practitioner's~note, with the following corrections and additions. Extensive counseling provided to the patient should verbalized understanding. Exam - Constitutional Vitals: Temp Pulse Resp BP Pulse Ox 97.9 F 60 16 99/58 99 02/15/17 08:34 02/15/17 10:00 02/15/17 10:00 02/15/17 09:25 02/15/17 10:07
--- NOTE | 2017-02-15 11:07 | Progress Note ---
Assessment and Plan STEMI s/p PCI of mid RCA, within prior stent using drug eluting stent EF 55-60% on echocardiogram Hypothyroidism TSH 8.5 Hx of CAD Prior CVA Hypertension Tobacco abuse Recommendations: Continue ASA and Plavix, beta blockers, statin and long-acting oral nitrates for coronary artery disease. Stable, cardiac stinson, for discharge home. Follow up with [facility] as scheduled on . Subjective Date of service: 02/15/17 Interval history: Patient denies chest pain. Objective Vital Signs Temp Pulse Pulse Resp BP BP Pulse Ox 02/15/17 10:07 99 02/15/17 10:00 60 16 02/15/17 09:25 60 99/58 02/15/17 09:24 60 99/58 02/15/17 08:34 97.9 F 60 18 99/58 98 02/14/17 23:00 60 02/14/17 22:29 70 130/70 02/14/17 22:00 20 02/14/17 21:43 97 02/14/17 19:51 97.9 F 67 18 114/55 99 02/14/17 16:43 98.2 F 65 18 117/67 99 02/14/17 15:20 64 19 102/63 02/14/17 15:10 68 20 102/63 02/14/17 15:00 59 L 18 102/63 02/14/17 14:50 59 L 15 102/63 02/14/17 14:40 61 17 102/63 02/14/17 14:30 59 L 14 102/63 02/14/17 14:00 64 21 102/63 02/14/17 13:30 62 11 L 102/63 98 02/14/17 13:00 58 L 15 103/64 100 02/14/17 12:30 61 19 102/63 100 02/14/17 12:00 98.3 F 58 L 17 102/63 100 02/14/17 11:30 63 13 101/54 100 - Physical Examination General: No Apparent Distress HEENT: Positive: PERRL Neck: Positive: trachea midline Cardiac: Positive: Reg Rate and Rhythm Lungs: Positive: Decreased Breath Sounds Neuro: Positive: Grossly Intact Extremities: Absent: edema - Labs and Meds CBC 02/15/17 Range/Units 05:43 Hgb 9.9 L (10.1-14.3) gm/dl Hct 29.6 L (30.3-42.9) % Plt Count 177 (140-440) K/mm3
--- NOTE | 2017-02-15 13:50 | Progress Note ---
Subjective Date of service: 02/15/17 Principal diagnosis: STEMI; CAD Interval history: Patient is seen today for: Acute on Chronic Hypoxemic Hypercapnic Respiratory Failure; Acute Pulmonary Embolus Seen and examined at bedside; 24hour events reviewed; nursing and respiratory care staff consulted; no adverse overnight events reported to me; resting in bed ; Objective Vital Signs - 12hr 02/15/17 02/15/17 02/15/17 08:34 09:24 09:25 Temperature 97.9 F Pulse Rate 60 60 60 Pulse Rate [ From Monitor] Respiratory 18 Rate Blood Pressure 99/58 99/58 Blood Pressure 99/58 [Left] O2 Sat by Pulse 98 Oximetry 02/15/17 02/15/17 10:00 10:07 Temperature Pulse Rate Pulse Rate [ 60 From Monitor] Respiratory 16 Rate Blood Pressure Blood Pressure [Left] O2 Sat by Pulse 99 Oximetry CBC and BMP: 02/15/17 05:43 02/14/17 03:58 ABG, PT/INR, D-dimer: PT/INR, D-dimer PT 12.7 Sec. (12.2-14.9) 02/12/17 14:31 INR 0.91 (0.87-1.13) 02/12/17 14:31 D-Dimer 291.1 ng/mlDDU (0-234) H 02/12/17 14:31 Abnormal lab findings: Abnormal Labs 02/12/17 02/12/17 02/12/17 20:20 20:20 22:59 Hgb Hct RDW [place] % (Auto) [place] # Activated Clotting Time Carbon Dioxide Total Creatine Kinase CK-MB (CK-2) CK-MB (CK-2) Rel Index Troponin T 0.077 H D 0.132 H* D Triglycerides 169 H 02/13/17 02/13/17 02/14/17 13:45 16:16 03:58 Hgb Hct RDW 17.4 H [place] % (Auto) 11.3 H [place] # 0.9 H Activated Clotting Time 224 H 180 H Carbon Dioxide Total Creatine Kinase CK-MB (CK-2) CK-MB (CK-2) Rel Index Troponin T Triglycerides 02/14/17 02/15/17 03:58 05:43 Hgb 9.9 L Hct 29.6 L RDW [place] % (Auto) [place] # Activated Clotting Time Carbon Dioxide 21 L Total Creatine Kinase 956 H CK-MB (CK-2) 73.3 H CK-MB (CK-2) Rel Index 7.6 H Troponin T 1.600 H* D Triglycerides
--- NOTE | 2017-02-16 11:31 | Vascular Lab Report ---
LOWER EXTREMITY VENOUS DUPLEX: REASON FOR EXAM: Bilateral lower extremity pain. COMMENTS ON THE RIGHT: All veins visualized are freely compressible without evidence of internal echogenicity. Flow is spontaneous and phasic throughout. COMMENTS ON THE LEFT: All veins visualized are freely compressible without evidence of internal echogenicity. Flow is spontaneous and phasic throughout. IMPRESSION: No evidence of acute or chronic deep venous thrombosis in either lower extremity.
== END 2017-02-15 12:56 | disposition home or self-care (01) | DRG 246 ==
LOC: ED 14:11 → 4A 18:41 → CC1 02-13 14:55 → 4A 02-14 15:44
PROVIDERS: ADMIT Internal Medicine; ATTEND Internal Medicine
PROC: 4A023N7 Measurement of Cardiac Sampling and Pressure, Left Heart, Percutaneous Approach (ICD-10-PCS; principal; 2017-02-13)
PROC: 027034Z Dilation of Coronary Artery, One Artery with Drug-eluting Intraluminal Device, Percutaneous Approach (ICD-10-PCS; 2017-02-13)
PROC: B2111ZZ Fluoroscopy of Multiple Coronary Arteries using Low Osmolar Contrast (ICD-10-PCS; 2017-02-13)
PROC: B2151ZZ Fluoroscopy of Left Heart using Low Osmolar Contrast (ICD-10-PCS; 2017-02-13)
DX: T82.855A Stenosis of coronary artery stent, initial encounter (principal); I21.29 ST elevation (STEMI) myocardial infarction involving other sites; G93.40 Encephalopathy, unspecified; I26.99 Other pulmonary embolism without acute cor pulmonale; J96.21 Acute and chronic respiratory failure with hypoxia; E87.2 Acidosis; I24.9 Acute ischemic heart disease, unspecified; I10 Essential (primary) hypertension; E03.9 Hypothyroidism, unspecified; I25.10 Atherosclerotic heart disease of native coronary artery without angina pectoris; F03.90 Unspecified dementia, unspecified severity, without behavioral disturbance, psychotic disturbance, mood disturbance, and anxiety; Z96.89 Presence of other specified functional implants; R55 Syncope and collapse; G90.8 Other disorders of autonomic nervous system; F17.200 Nicotine dependence, unspecified, uncomplicated; Z82.49 Family history of ischemic heart disease and other diseases of the circulatory system; Z95.5 Presence of coronary angioplasty implant and graft; Z88.1 Allergy status to other antibiotic agents
CPT/HCPCS: 36415; 70450; 71010; 71275; 80048; 80053; 80061; 80307; 81001; 82550; 82553; 83880; 84443; 84484; 85014; 85018; 85025; 85049; 85347; 85379; 85610; 85730; 92928; 93005; 93010; 93306; 93458; 93880; 93970; 94760; 95819; 96374; 96375; 99285; 99406; A9270-GY; C1725; C1769; C1874; C1887; C1894; C9600; J1170; J1644; J2250; J3010; J3246; J7030; J7040; Q9967

== ENCOUNTER 2017-03-11 11:17 | Inpatient (IN) | payer MEDICARE ==
--- NOTE | 2017-03-11 12:21 | Cat Scan Report ---
CT HEAD WITHOUT CONTRAST: 03/11/17 11:17:00 CLINICAL: Altered mental status. TECHNIQUE: 2.5-mm noncontrast scans. COMPARISON:02/12/17 FINDINGS: Bilateral frontal lobe and left parietal lobe encephalomalacia as seen on the prior exam. Stable moderate bilateral periventricular white matter hypodensities. No new suspicious hypodensity. Stable mild enlargement of sulci and ventricles. No mass or mass effect. No hemorrhage, edema or extra-axial collection. The sinuses are clear. Normal orbits and soft tissues. The calvarium and skull base are intact. IMPRESSION: Stable chronic infarcts and chronic white matter microvascular ischemic change. No acute change.
[2017-03-11 12:48] LABS: Basophils % (Auto) 0.2 % (0.0-1.8); Eosinophils % (Auto) 0.7 % (0.0-4.3); Hematocrit 20.3 % (30.3-42.9); Hemoglobin 6.2 gm/dl (10.1-14.3); Mean Corpuscular HGB Conc 31 % (30-34); Mean Corpuscular Hemoglobin 27 pg (28-32); Mean Corpuscular Volume 88 fl (79-97); Platelet Count 342 K/mm3 (140-440); Red Blood Count 2.31 M/mm3 (3.65-5.03); Red Cell Distribution Width 17.7 % (13.2-15.2)
[2017-03-11 13:04] LABS: Alanine Aminotransferase 12 units/L (7-56); Albumin 3.7 g/dL (3.9-5); Albumin/Globulin Ratio 1.1 %; Alkaline Phosphatase 100 units/L (35-129); Anion Gap 21 mmol/L; BUN/Creatinine Ratio 16; Blood Urea Nitrogen 14 mg/dL (7-17); Carbon Dioxide 18 mmol/L (22-30); Chloride 106.4 mmol/L (98-107); Glucose 121 mg/dL (65-100); Sodium 141 mmol/L (137-145); Total Protein 7.1 g/dL (6.3-8.2)
--- NOTE | 2017-03-11 13:30 | Emergency Department Report ---
ED Dizziness HPI - General Chief Complaint: Altered Mental Status Stated Complaint: CHEST PAIN Time Seen by Provider: 03/11/17 12:58 Source: EMS Mode of arrival: Stretcher Limitations: No Limitations - History of Present Illness Initial Comments: 62-year-old female the past medical history of CAD with stent placement, brain aneurysm, hypertension, and dementia presents to the hospital complaints of chest pain and near syncopal episode. Patient initially is really shaky and dizzy with standing. While attempting to go up the stairs she lost her balance , complaining of left-sided chest pain and broke out in a cold sweat. This episode occurred at 11:30 AM but patient has complained of chest pain since the morning time. Patient is alert to self, no she's in a hospital, but not to year or president which family states is her baseline and denies any acute change in mental status. She has been compliant with all her medications. Patient was admitted here last month and had a cardiac cath showing 100% occlusion of the mid RCA and had stent placement within prior stent.. Patient presented that time with chest pain, bradycardia concerning for heart block, myxedema, elevated d-dimer (negative CT angiogram chest), and STEMI. Patient apparently has a history of anemia in the past with unknown cause and has not required a blood transfusion. Medical records she was discharged on aspirin and Plavix after her cath/ stent placement - Related Data Previous Rx's Medication Instructions Recorded Last Taken Type Aspirin [Aspirin BABY CHEW TAB] 81 mg PO QDAY 30 Days tab.chew 02/15/17 Unknown Rx AtorvaSTATin [Lipitor] 40 mg PO QHS #30 tablet 02/15/17 Unknown Rx Clopidogrel [Plavix] 75 mg PO QDAY 30 Days tablet 02/15/17 Unknown Rx Famotidine [Pepcid] 20 mg PO QDAY tablet 02/15/17 Unknown Rx ISOSORBIDE MONOnitrate [Imdur ER] 30 mg PO QDAY 30 Days tablet 02/15/17 Unknown Rx Levothyroxine [Synthroid] 100 mcg PO DAILY@0600 30 Days 02/15/17 Unknown Rx tablet Metoprolol [Lopressor TAB] 50 mg PO BID 30 Days tablet 02/15/17 Unknown Rx Allergies Allergy/AdvReac Type Severity Reaction Status Date / Time tetracycline Allergy Unknown Unknown Verified 02/12/17 14:41 ED Review of Systems ROS: Stated complaint: CHEST PAIN Other details as noted in HPI Comment: All other systems reviewed and negative Other: Constitutional: No fevers chills Eyes: No eye pain visual changes ENT: No ear pain or throat pain Neck: Denies pain Respiratory: Denies cough wheezing Cardiovascular: as per hpi GI: Denies abdominal pain, : Denies dysuria Musculoskeletal: Denies back pain Skin: Denies rash, lesions, erythema Neurologic: Denies headache, numbness, weakness Psychiatric: Denies suicidal ideation, hallucinations ED Past Medical Hx - Past Medical History Previous Medical History?: Yes Hx Hypertension: Yes Hx CVA: No Hx Congestive Heart Failure: No Hx Diabetes: No Hx Arthritis: No Hx Asthma: No Hx COPD: Yes Hx Dementia: Yes Additional medical history: brain anuerysm. Stents - Surgical History Additional Surgical History: 2 stents placed - Social History Smoking Status: Current Every Day Smoker Substance Use Type: None - Medications Home Medications: Home Medications Medication Instructions Recorded Confirmed Last Taken Type Aspirin [Aspirin BABY CHEW TAB] 81 mg PO QDAY 30 Days tab.chew 02/15/17 Unknown Rx AtorvaSTATin [Lipitor] 40 mg PO QHS #30 tablet 02/15/17 Unknown Rx Clopidogrel [Plavix] 75 mg PO QDAY 30 Days tablet 02/15/17 Unknown Rx Famotidine [Pepcid] 20 mg PO QDAY tablet 02/15/17 Unknown Rx ISOSORBIDE MONOnitrate [Imdur ER] 30 mg PO QDAY 30 Days tablet 02/15/17 Unknown Rx Levothyroxine [Synthroid] 100 mcg PO DAILY@0600 30 Days 02/15/17 Unknown Rx tablet Metoprolol [Lopressor TAB] 50 mg PO BID 30 Days tablet 02/15/17 Unknown Rx ED Physical Exam - General Limitations: No Limitations - Other Other exam information: General: No limitations, patient is alert in no acute distress Head exam: Atraumatic, normocephalic Eyes exam: Normal appearance, pupils equal reactive to light, extraocular movements intact ENT: Moist mucous membrane, normal oropharynx Neck exam: Normal inspection, full range of motion, no meningismus nontender Respiratory exam: Clear to auscultation bilateral, no wheezes, rales, crackles Cardiovascular: Normal rate and rhythm, normal heart sounds Abdomen: Soft, nondistended, and nontender, with normal bowel sounds, no rebound, or guarding Rectal: Guaiac positive brown stool Extremity: Full range of motion normal inspection no deformity Back: Normal Inspection, full range of motion, no tenderness Neurologic: Alert, oriented x2, cranial nerves intact, no motor or sensory deficit Psychiatric: normal affect, normal mood Skin: Warm, dry, intact ED Course Vital Signs 03/11/17 03/11/17 03/11/17 11:42 12:21 12:23 Temperature 98.0 F Pulse Rate 100 H 68 Respiratory 16 20 15 Rate Blood Pressure 90/70 O2 Sat by Pulse 98 100 Oximetry 03/11/17 03/11/17 03/11/17 12:30 13:00 13:30 Temperature Pulse Rate 71 65 65 Respiratory 13 15 13 Rate Blood Pressure 139/56 139/56 139/56 O2 Sat by Pulse 99 100 100 Oximetry 03/11/17 14:00 Temperature Pulse Rate 62 Respiratory 13 Rate Blood Pressure 139/56 O2 Sat by Pulse 100 Oximetry - Reevaluation(s) Reevaluation #1: 03/11/17 13:49 Repeat blood pressure improved without intervention 03/11/17 13:51 troponin added to blood work awaiting result ED Medical Decision Making - Lab Data Result diagrams: 03/11/17 12:22 03/11/17 12:22 - EKG Data -: EKG Interpreted by Me (inferior infarct) EKG shows normal: sinus rhythm, ST-T waves (inferior T inversion no ST elevation CA) Rate: normal (64) - EKG Data When compared to previous EKG there are: no significant change (compared to ) - Radiology Data Radiology results: report reviewed CT head: Stable chronic infarcts and chronic white matter microvascular ischemic change. No acute findings - Medical Decision Making Patient is currently pain-free. trop neg - Differential Diagnosis CA, unstable angina, anemia, hypotension Critical Care Time: No Critical care attestation.: If time is entered above; I have spent that time in minutes in the direct care of this critically ill patient, excluding procedure time. ED Disposition Clinical Impression: Chest pain, Near syncope, Symptomatic anemia, Hypothyroidism, Stented coronary artery, Guaiac positive stools, Iron deficiency, Elevated lactic acid level Disposition: OP ADMIT IP TO THIS HOSP Is pt being admited?: Yes Condition: Stable Time of Disposition: 13:52 (Dr Sanchez/hosp)
[2017-03-11] MEDS ORDERED: NACL 0.9% 500 ML 500 ML IV ONE (13:53)
[2017-03-11 14:11] LABS: INR 1.02 (0.87-1.13); Partial Thromboplastin Time 23.1 Sec. (24.2-36.6)
--- NOTE | 2017-03-11 16:43 | History and Physical Report ---
History of Present Illness Date of examination: 03/11/17 Date of admission: 03/11/17 15:27 Chief complaint: Chest pain History of present illness: History of Present Illness 62-year-old female the past medical history of CAD with stent placement, brain aneurysm, hypertension, and dementia presents to the hospital complaints of chest pain and near syncopal episode. Patient initially is really shaky and dizzy with standing. While attempting to go up the stairs she lost her balance , complaining of left-sided chest pain and broke out in a cold sweat. This episode occurred at 11:30 AM but patient has complained of chest pain since the morning time. Patient is alert to self, no she's in a hospital, but not to year or president which family states is her baseline and denies any acute change in mental status. She has been compliant with all her medications. Patient was admitted here last month and had a cardiac cath showing 100% occlusion of the mid RCA and had stent placement within prior stent.. Patient presented that time with chest pain, bradycardia concerning for heart block, myxedema, elevated d-dimer (negative CT angiogram chest), and STEMI. Patient apparently has a history of anemia in the past with unknown cause and has not required a blood transfusion. Medical records she was discharged on aspirin and Plavix after her cath/ stent placement - Related Data Previous Rx's Medication Instructions Recorded Last Taken Type Aspirin [Aspirin BABY CHEW TAB] 81 mg PO QDAY 30 Days tab.chew 02/15/17 Unknown Rx AtorvaSTATin [Lipitor] 40 mg PO QHS #30 tablet 02/15/17 Unknown Rx Clopidogrel [Plavix] 75 mg PO QDAY 30 Days tablet 02/15/17 Unknown Rx Famotidine [Pepcid] 20 mg PO QDAY tablet 02/15/17 Unknown Rx ISOSORBIDE MONOnitrate [Imdur ER] 30 mg PO QDAY 30 Days tablet 02/15/17 Unknown Rx Levothyroxine [Synthroid] 100 mcg PO DAILY@0600 30 Days 02/15/17 Unknown Rx tablet Metoprolol [Lopressor TAB] 50 mg PO BID 30 Days tablet 02/15/17 Unknown Rx Allergies Allergy/AdvReac Type Severity Reaction Status Date / Time tetracycline Allergy Unknown Unknown Verified 02/12/17 14:41 Review of Systems Stated complaint: CHEST PAIN Other details as noted in HPI Comment: All other systems reviewed and negative Other: Constitutional: No fevers chills Eyes: No eye pain visual changes ENT: No ear pain or throat pain Neck: Denies pain Respiratory: Denies cough wheezing Cardiovascular: as per hpi GI: Denies abdominal pain, : Denies dysuria Musculoskeletal: Denies back pain Skin: Denies rash, lesions, erythema Neurologic: Denies headache, numbness, weakness Psychiatric: Denies suicidal ideation, hallucinations - Past Medical History Previous Medical History?: Yes Hx Hypertension: Yes Hx COPD: Yes Hx Dementia: Yes Additional medical history: brain anuerysm. Stents - Surgical History Additional Surgical History: 2 stents placed - Social History Smoking Status: Current Every Day Smoker Substance Use Type: None - Medications Home Medications: Home Medications Medication Instructions Recorded Confirmed Last Taken Type Aspirin [Aspirin BABY CHEW TAB] 81 mg PO QDAY 30 Days tab.chew 02/15/17 Unknown Rx AtorvaSTATin [Lipitor] 40 mg PO QHS #30 tablet 02/15/17 Unknown Rx Clopidogrel [Plavix] 75 mg PO QDAY 30 Days tablet 02/15/17 Unknown Rx Famotidine [Pepcid] 20 mg PO QDAY tablet 02/15/17 Unknown Rx ISOSORBIDE MONOnitrate [Imdur ER] 30 mg PO QDAY 30 Days tablet 02/15/17 Unknown Rx Levothyroxine [Synthroid] 100 mcg PO DAILY@0600 30 Days 02/15/17 Unknown Rx tablet Metoprolol [Lopressor TAB] 50 mg PO BID 30 Days tablet 02/15/17 Unknown Rx Medications and Allergies Allergies Allergy/AdvReac Type Severity Reaction Status Date / Time tetracycline Allergy Unknown Unknown Verified 02/12/17 14:41 Home Medications Medication Instructions Recorded Confirmed Last Taken Type Aspirin [Aspirin BABY CHEW TAB] 81 mg PO QDAY 30 Days tab.chew 02/15/17 Unknown Rx AtorvaSTATin [Lipitor] 40 mg PO QHS #30 tablet 02/15/17 04/08/17 Unknown Rx Clopidogrel [Plavix] 75 mg PO QDAY 30 Days tablet 02/15/17 04/08/17 Unknown Rx ISOSORBIDE MONOnitrate [Imdur ER] 30 mg PO QDAY 30 Days tablet 02/15/17 Unknown Rx Levothyroxine [Synthroid] 100 mcg PO DAILY@0600 30 Days 02/15/17 04/08/17 Unknown Rx tablet Metoprolol [Lopressor TAB] 25 mg PO BID 30 Days tablet 03/17/17 04/08/17 Unknown Rx Pantoprazole [Protonix TAB] 40 mg PO BID #60 tablet 03/17/17 04/08/17 Unknown Rx Exam - Constitutional Vitals: Temp Pulse Resp BP Pulse Ox 98.0 F 63 13 106/60 100 03/11/17 11:42 03/11/17 16:29 03/11/17 16:00 03/11/17 16:00 03/11/17 16:29 General appearance: Present: no acute distress, well-nourished - EENT Eyes: Present: PERRL ENT: hearing intact, clear oral mucosa - Neck Neck: Present: supple, normal ROM - Respiratory Respiratory effort: normal Respiratory: bilateral: CTA - Cardiovascular Heart rate: 76 Rhythm: regular Heart Sounds: Present: S1 & S2. Absent: rub, click - Extremities Extremities: pulses symmetrical, No edema Peripheral Pulses: within normal limits - Abdominal General gastrointestinal: Present: soft, non-tender, non-distended, normal bowel sounds Female genitourinary: Present: normal - Rectal Rectal Exam: deferred - Integumentary Integumentary: Present: clear, warm, dry - Musculoskeletal Musculoskeletal: gait normal, strength equal bilaterally - Psychiatric Psychiatric: appropriate mood/affect, intact judgment & insight - Neurologic Neurologic: CNII-XII intact, moves all extremities - Allied Health Allied health notes reviewed: nursing, case management Results - Labs CBC & Chem 7: 03/17/17 05:02 03/17/17 05:02 Labs: Laboratory Last Values WBC 8.0 K/mm3 (4.5-11.0) 03/11/17 12:22 RBC 2.31 M/mm3 (3.65-5.03) L 03/11/17 12:22 Hgb 6.2 gm/dl (10.1-14.3) L 03/11/17 12:22 Hct 20.3 % (30.3-42.9) L 03/11/17 12:22 MCV 88 fl (79-97) 03/11/17 12:22 MCH 27 pg (28-32) L 03/11/17 12:22 MCHC 31 % (30-34) 03/11/17 12:22 RDW 17.7 % (13.2-15.2) H 03/11/17 12:22 Plt Count 342 K/mm3 (140-440) 03/11/17 12:22 Lymph % (Auto) 11.7 % (13.4-35.0) L 03/11/17 12:22 [place] % (Auto) 5.5 % (0.0-7.3) 03/11/17 12:22 Eos % (Auto) 0.7 % (0.0-4.3) 03/11/17 12:22 Baso % (Auto) 0.2 % (0.0-1.8) 03/11/17 12:22 Lymph # 0.9 K/mm3 (1.2-5.4) L 03/11/17 12:22 [place] # 0.4 K/mm3 (0.0-0.8) 03/11/17 12:22 Eos # 0.1 K/mm3 (0.0-0.4) 03/11/17 12:22 Baso # 0.0 K/mm3 (0.0-0.1) 03/11/17 12:22 Seg Neutrophils % 81.9 % (40.0-70.0) H 03/11/17 12:22 Seg Neutrophils # 6.6 K/mm3 (1.8-7.7) 03/11/17 12:22 PT 13.9 Sec. (12.2-14.9) 03/11/17 13:24 INR 1.02 (0.87-1.13) 03/11/17 13:24 APTT 23.1 Sec. (24.2-36.6) L 03/11/17 13:24 Sodium 141 mmol/L (137-145) 03/11/17 12:22 Potassium 4.0 mmol/L (3.6-5.0) 03/11/17 12:22 Chloride 106.4 mmol/L (98-107) 03/11/17 12:22 Carbon Dioxide 18 mmol/L (22-30) L 03/11/17 12:22 Anion Gap 21 mmol/L 03/11/17 12:22 BUN 14 mg/dL (7-17) 03/11/17 12:22 Creatinine 0.9 mg/dL (0.7-1.2) 03/11/17 12:22 Estimated GFR > 60 ml/min 03/11/17 12:22 BUN/Creatinine Ratio 16 % 03/11/17 12:22 Glucose 121 mg/dL (65-100) H 03/11/17 12:22 POC Glucose 137 (70-105) H 03/11/17 11:56 Lactic Acid 2.60 mmol/L (0.7-2.0) H* 03/11/17 14:42 Calcium 9.0 mg/dL (8.4-10.2) 03/11/17 12:22 Magnesium 2.20 mg/dL (1.7-2.3) 03/11/17 12:22 Iron 15 ug/dL (37-170) L 03/11/17 12:22 TIBC 404 mcg/dL (250-450) 03/11/17 12:22 % Saturation 3.71 % 03/11/17 12:22 Transferrin 341 mg/dl (192-382) 03/11/17 12:22 Total Bilirubin 0.30 mg/dL (0.1-1.2) 03/11/17 12:22 AST 13 units/L (5-40) 03/11/17 12:22 ALT 12 units/L (7-56) 03/11/17 12:22 Alkaline Phosphatase 100 units/L (35-129) 03/11/17 12:22 Troponin T < 0.010 ng/mL (0.00-0.029) 03/11/17 12:22 Total Protein 7.1 g/dL (6.3-8.2) 03/11/17 12:22 Albumin 3.7 g/dL (3.9-5) L 03/11/17 12:22 Albumin/Globulin Ratio 1.1 % 03/11/17 12:22 TSH 0.079 mlU/mL (0.270-4.200) L 03/11/17 12:31 Salicylates 1.1 mg/dL (2.8-20.0) L 03/11/17 12:31 Acetaminophen < 15.0 ug/mL (10.0-30.0) 03/11/17 12:31 Plasma/Serum Alcohol < 0.01 gm% (0-0.07) 03/11/17 12:31 Blood Type A POSITIVE 03/11/17 13:24 Antibody Screen Negative 03/11/17 13:24 Crossmatch See Detail 03/11/17 13:24 Assessment and Plan Advance Directives: Yes (full code) VTE prophylaxis?: Chemical Plan of care discussed with patient/family: Yes - Patient Problems (1) Chest pain Status: Acute Plan to address problem: Chest pain W/u (2) Hypothyroidism Status: Acute Plan to address problem: Cont Synthyroid (3) CAD (coronary artery disease) Status: Chronic Qualifiers: Coronary Disease-Associated Artery/Lesion type: [place] artery [place] vs. transplanted heart: [place] heart Associated angina: with unspecified angina Qualified Code(s): I25.119 - Atherosclerotic heart disease of [place] coronary artery with unspecified angina pectoris Plan to address problem: Cont ASA and Plavix (4) HTN (hypertension) Status: Chronic Qualifiers: Hypertension type: essential hypertension Plan to address problem: Cont antihypertensives (5) DVT prophylaxis Status: Acute Plan to address problem: Scd,s /Lovenox
[2017-03-11] MEDS ORDERED: NACL 0.9% 500 ML 500 ML ONE (16:57)
[2017-03-11] MEDS ORDERED: ZOFRAN IV PRN (21:17)
[2017-03-11] MEDS ORDERED: MILK OF MAGNESIA PO PRN (21:17)
[2017-03-11] MEDS ORDERED: TYLENOL PO PRN (21:17)
[2017-03-11] MEDS ORDERED: DULCOLAX PR PRN (21:17)
[2017-03-11] MEDS ORDERED: MORPHINE IV PRN (21:19)
[2017-03-11] MEDS ORDERED: PLAVIX PO SCH (22:00)
[2017-03-11] MEDS ORDERED: NACL 0.9% 1000 ML 1,000 ML IV SCH (22:00)
[2017-03-11] MEDS: IMDUR PO SCH (23:00)
[2017-03-11] MEDS: PEPCID PO SCH (23:00)
[2017-03-11] MEDS: BABY ASPIRIN PO SCH (23:01)
[2017-03-11] MEDS: LOPRESSOR PO SCH (23:01)
[2017-03-11 23:23] LABS: Creatine Kinase 24 units/L (30-135)
[2017-03-12] LABS: Urine Drugs of Abuse Note Disclamer
[2017-03-12 00:12] LABS: Bilirubin,Urine NEG (Negative); Blood,Urine NEG (Negative); Ketones,Urine NEG (Negative); Leukocyte Esterase,Urine NEG (Negative); Nitrite,Urine NEG (Negative); Protein,Urine <15 mg/dL mg/dL (Negative); Urobilinogen,Urine < 2.0 mg/dL (<2.0)
[2017-03-12 00:15] LABS: RBC,Urine < 1.0 /HPF (0.0-6.0)
[2017-03-12] MEDS: AMBIEN PO PRN (00:16)
[2017-03-12 05:23] LABS: Basophils % (Auto) 0.5 % (0.0-1.8); Eosinophils % (Auto) 1.1 % (0.0-4.3); Hematocrit 26.1 % (30.3-42.9); Hemoglobin 8.5 gm/dl (10.1-14.3); Mean Corpuscular HGB Conc 33 % (30-34); Mean Corpuscular Hemoglobin 26 pg (28-32); Mean Corpuscular Volume 81 fl (79-97); Platelet Count 273 K/mm3 (140-440); Red Blood Count 3.21 M/mm3 (3.65-5.03); Red Cell Distribution Width 16.9 % (13.2-15.2); White Blood Count 6.2 K/mm3 (4.5-11.0)
[2017-03-12 05:51] LABS: Alanine Aminotransferase 11 units/L (7-56); Albumin 3.4 g/dL (3.9-5); Albumin/Globulin Ratio 1.3 %; Alkaline Phosphatase 84 units/L (35-129); Anion Gap 17 mmol/L; BUN/Creatinine Ratio 19; Blood Urea Nitrogen 15 mg/dL (7-17); Calcium 8.5 mg/dL (8.4-10.2); Carbon Dioxide 21 mmol/L (22-30); Chloride 107.9 mmol/L (98-107); Creatine Kinase MB 1.1 ng/mL (0.0-4.0); Glucose 98 mg/dL (65-100); Potassium 3.8 mmol/L (3.6-5.0); Sodium 142 mmol/L (137-145); Total Protein 6.1 g/dL (6.3-8.2)
[2017-03-12] MEDS: SYNTHROID PO SCH (05:54)
[2017-03-12 05:58] LABS: Creatine Kinase 28 units/L (30-135)
[2017-03-12] MEDS ORDERED: LEXISCAN IV ONE ×2 (08:13→08:37)
--- NOTE | 2017-03-12 08:25 | History and Physical Report ---
CHIEF COMPLAINT: 1. Chest pain. 2. Passed out. HISTORY OF PRESENT ILLNESS: A 62-year-old female with multiple medical problems including coronary artery disease with stent placement, hypertension, mild dementia, hypothyroidism and questionable brain aneurysm, comes in for left-sided chest pain. Also apparently passed out around 11:30 a.m. Since then, she has chest pain. Chest pain is dull on the left side about 5 x 10. No exacerbating or relieving factors. No radiation. The patient is alert. The patient was admitted for a cardiac catheterization showing 100% occlusion of the mid RCA and had stent placement recently. No palpitations, no diaphoresis. Slightly altered sensorium, which is resolved in the ER. PAST MEDICAL HISTORY: Significant for coronary artery disease, hyperlipidemia, gastroesophageal reflux disease, hypothyroidism, and hypertension. PAST SURGICAL HISTORY: Significant for 2 stents in the right coronary artery. SOCIAL HISTORY: Smokes over a pack a day. FAMILY HISTORY: Hypertension. CURRENT MEDICATIONS: Lipitor 40 mg daily, Plavix 75 mg daily, famotidine 20 mg daily, isosorbide mononitrate 30 mg p.o. daily, levothyroxine 100 mcg p.o. daily, metoprolol 50 mg p.o. b.i.d. REVIEW OF SYSTEMS: Significant for passing out and left-sided chest pain. Otherwise, alert and oriented. Review of systems essentially negative. A 14-point review of systems done. PHYSICAL EXAMINATION: GENERAL: Elderly female, cooperative during examination. VITAL SIGNS: Initial blood pressure was 90/70 which is improved to 139/56, temperature 98, pulse is 100, respirations are 16. HEENT: Unremarkable. Pupils equal and reactive. NECK: Supple, no lymphadenopathy, no thyromegaly. LUNGS: Clear to auscultation and percussion. Good air entry. CARDIOVASCULAR: S1, S2 heard. No gallop, no murmur, no rub. Apical impulse in left fifth intercostal space and midclavicular line. ABDOMEN: Soft and benign. No hepatosplenomegaly. No guarding, no rigidity. Hernial orifices are normal. EXTREMITIES: Good pedal pulses. No pedal edema. CENTRAL NERVOUS SYSTEM: Alert and oriented x 4, nonfocal exam. LABORATORY DATA: EKG sinus tachycardia, nonspecific ST-T wave changes, inferior T inversion, no ST elevation [place], rate 64. CT of the head, chronic infarct found. ASSESSMENT AND PLAN: 1. Symptomatic anemia. The patient will be transfused. Has guaiac positive stools, but brown stool. We will get a GI involvement. 2. Chest pain, rule out myocardial infarction. Chest pain protocol. Get serial cardiac enzymes and Lexiscan. 3. Near syncope. The patient to get carotid duplex scan and Lexiscan. 4. Hypothyroidism. Continue levothyroxine. 5. Coronary artery disease. Hold Plavix. Continue Imdur. Also hold aspirin. 6. Hyperlipidemia. Continue Lipitor 40 mg daily. 7. Hypertension. Continue metoprolol 50 mg twice a day. 8. Deep venous thrombosis prophylaxis. Only SCDs. No Lovenox. JOB# [id number] LISSETTE/JUANY
--- NOTE | 2017-03-12 11:03 | Treadmill Report ---
LEXISCAN STRESS TEST REPORT REASON FOR STUDY: Chest pain. STRESS TEST PROTOCOL: The patient received 0.4 of Lexiscan intravenously over 10 seconds. Technetium-99m tetrofosmin was subsequently injected. Baseline EKG, normal sinus rhythm. Lexiscan EKG, no diagnostic ischemic changes. No chest pain. No arrhythmias. IMPRESSION: Electrocardiographically negative stress test. Nuclear imaging report to follow. JOB# [id number] AGO/NTS
[2017-03-12] MEDS: BABY ASPIRIN PO SCH (12:40)
[2017-03-12] MEDS: PEPCID PO SCH (12:54)
[2017-03-12] MEDS: LOPRESSOR PO SCH ×2 (12:55→21:55)
[2017-03-12] MEDS: IMDUR PO SCH (13:10)
--- NOTE | 2017-03-12 14:06 | Progress Note ---
Assessment and Plan /Chest pain, likely due to severe anemia transfused 2 unit of PRBC Patient is s/p Cardiac cath showed 100% oclusion of the mid RCA, and RCA Stent within prior PCI with drug eluting stent placement during last admission on Monitor at telemetry Continue on beta blockers, statin, Aspirin, Plavix for now cont Supplemental oxygen, Echocardiogram during last visit was ef 55%-60% Consult Cardiology, s/p stress test today /severe anemia likley from medications, cannot r/o PUD f/u anemia work up transfused 2 unit yesterday consulted GI /Near stncope Most likely due to volume depletion from severe anemia CT of the head showed no acute process. Frequent neuro checks Negative carotid doppler IV fluid hydration Monitor Orthostatic blood pressure /Hypothyroidism Continue oral synthroid /CAD (coronary artery disease) with recent STEMI low cholesterol diet, cont statin cont plavix and aspirin for anemia until hold by GI / h/o Tobacco abuse smoking cessation counseling done. Patient strongly advised to quit. /DVT prophylaxis scd Brief history: 62-year-old female the past medical history of CAD with stent placement, brain aneurysm, hypertension, and dementia presents to the hospital complaints of chest pain and near syncopal episode. Radiological data: Stress test Carotid Doppler CT head Hospitalist Physical exam: GENERAL: well-developed and well-nourished AAF lying on bed appeared to be in no discomfort. HEENT: Normocephalic. Atraumatic. No conjunctival congestion or icterus. Patient has moist mucous membranes. NECK: Supple. Trachea midline. CHEST/LUNGS: Clear to auscultated bilaterally, breathing nonlabored. No wheezes crackles or rhonchi. HEART/CARDIOVASCULAR: Regular in rate and rhythm. S1 and S2 positive. ABDOMEN: Abdomen is soft, nontender. Patient has normal bowel sounds. SKIN: There is no rash. Warm and dry. NEURO: No focal motor deficit. Follows command. MUSCULOSKELETAL: No joint effusion or tenderness. EXTRIMITY: No edema, no cyanosis or clubbing. PSYCH: Cooperative. Subjective Date of service: 03/12/17 Interval history: Pt seen and examined c/o dark stool with every BM completed blood transfusion discussed with GI will cont aspirin and plavix for now Objective - Constitutional Vitals: Vital Signs - 12hr 03/12/17 03/12/17 03/12/17 03:54 07:35 09:18 Temperature 98.3 F 98.6 F 98.6 F Pulse Rate 60 64 76 Respiratory 18 20 18 Rate Blood Pressure 122/68 128/66 Blood Pressure 129/62 [Left] O2 Sat by Pulse 100 100 95 Oximetry 03/12/17 03/12/17 03/12/17 09:21 09:23 09:29 Temperature 98.6 F Pulse Rate 66 64 98 H Respiratory 20 Rate Blood Pressure 140/74 121/76 Blood Pressure 128/66 [Left] O2 Sat by Pulse 100 Oximetry 03/12/17 03/12/17 03/12/17 09:30 09:31 09:32 Temperature Pulse Rate 98 H 95 H 92 H Respiratory Rate Blood Pressure 135/67 137/69 136/69 Blood Pressure [Left] O2 Sat by Pulse Oximetry 03/12/17 03/12/17 03/12/17 09:33 13:05 13:09 Temperature 97.8 F Pulse Rate 89 80 80 Respiratory 18 Rate Blood Pressure 140/70 Blood Pressure 109/54 [Left] O2 Sat by Pulse 100 98 Oximetry - Labs CBC & Chem 7: 03/12/17 04:52 03/12/17 04:52 Labs: Abnormal lab results 03/11/17 03/11/17 03/11/17 Range/Units 12:22 12:31 13:24 RBC (3.65-5.03) M/mm3 Hgb (10.1-14.3) gm/dl Hct (30.3-42.9) % MCH (28-32) pg RDW (13.2-15.2) % [place] % (Auto) (0.0-7.3) % APTT 23.1 L (24.2-36.6) Sec. Chloride (98-107) mmol/L Carbon Dioxide (22-30) mmol/L Lactic Acid (0.7-2.0) mmol/L Iron 15 L (37-170) ug/dL Total Creatine Kinase (30-135) units/L CK-MB (CK-2) Rel Index (0-4) Total Protein (6.3-8.2) g/dL Albumin (3.9-5) g/dL Salicylates 1.1 L (2.8-20.0) mg/dL Crossmatch 03/11/17 03/11/17 03/11/17 Range/Units 13:24 14:42 22:48 RBC (3.65-5.03) M/mm3 Hgb (10.1-14.3) gm/dl Hct (30.3-42.9) % MCH (28-32) pg RDW (13.2-15.2) % [place] % (Auto) (0.0-7.3) % APTT (24.2-36.6) Sec. Chloride (98-107) mmol/L Carbon Dioxide (22-30) mmol/L Lactic Acid 2.60 H* (0.7-2.0) mmol/L Iron (37-170) ug/dL Total Creatine Kinase 24 L (30-135) units/L CK-MB (CK-2) Rel Index 4.1 H (0-4) Total Protein (6.3-8.2) g/dL Albumin (3.9-5) g/dL Salicylates (2.8-20.0) mg/dL Crossmatch See Detail 03/12/17 03/12/17 03/12/17 Range/Units 04:52 04:52 04:52 RBC 3.21 L (3.65-5.03) M/mm3 Hgb 8.5 L (10.1-14.3) gm/dl Hct 26.1 L (30.3-42.9) % MCH 26 L (28-32) pg RDW 16.9 H (13.2-15.2) % [place] % (Auto) 8.7 H (0.0-7.3) % APTT (24.2-36.6) Sec. Chloride 107.9 H (98-107) mmol/L Carbon Dioxide 21 L (22-30) mmol/L Lactic Acid (0.7-2.0) mmol/L Iron (37-170) ug/dL Total Creatine Kinase 28 L (30-135) units/L CK-MB (CK-2) Rel Index (0-4) Total Protein 6.1 L (6.3-8.2) g/dL Albumin 3.4 L (3.9-5) g/dL Salicylates (2.8-20.0) mg/dL Crossmatch
--- NOTE | 2017-03-12 14:33 | Gastroenterology Consultation ---
History of Present Illness - Reason for Consult Consult date: 03/12/17 Anemia suspected due to chronic blood loss Requesting physician: DOUGLAS MEJÍA - History of Present Illness The patient is a 62 year old female admitted with dizziness and found to have a Hgb of 6.2 with microcytic indices. She had a STEMI a month ago and had re do stenting with drug-eluting stents. She was placed on Plavix and ASA. Her Hgb was 11.2 at that time with an MCV of 89. The patient's significant other in the room assisted with the history due to her history of CVAs and speech impairment. She has never had colonoscopy or EGD to her recollection. There has been no abdominal pain, nausea, vomiting, melena or BRBPR although stools have been dark at times. No FH of GI malignancies. Past History Past Medical History: CAD, stroke, other (History of cardiac stents in the past and repeat stenting a month ago.) Past Surgical History: No surgical history Social history: no significant social history Family history: no significant family history Medications and Allergies Allergies Allergy/AdvReac Type Severity Reaction Status Date / Time tetracycline Allergy Unknown Unknown Verified 02/12/17 14:41 Home Medications Medication Instructions Recorded Confirmed Last Taken Type Aspirin [Aspirin BABY CHEW TAB] 81 mg PO QDAY 30 Days tab.chew 02/15/17 Unknown Rx AtorvaSTATin [Lipitor] 40 mg PO QHS #30 tablet 02/15/17 Unknown Rx Clopidogrel [Plavix] 75 mg PO QDAY 30 Days tablet 02/15/17 Unknown Rx Famotidine [Pepcid] 20 mg PO QDAY tablet 02/15/17 Unknown Rx ISOSORBIDE MONOnitrate [Imdur ER] 30 mg PO QDAY 30 Days tablet 02/15/17 Unknown Rx Levothyroxine [Synthroid] 100 mcg PO DAILY@0600 30 Days 02/15/17 Unknown Rx tablet Metoprolol [Lopressor TAB] 50 mg PO BID 30 Days tablet 02/15/17 Unknown Rx Active Meds: Active Medications Acetaminophen (Tylenol) 650 mg PO Q4H PRN PRN Reason: Pain MILD(1-3)/Fever >100.5/BRAND Aspirin (Halfprin Ec) 81 mg PO QDAY ODALIS Atorvastatin Calcium (Lipitor) 40 mg PO QHS [facility] Last Admin: 03/11/17 23:00 Dose: 40 mg Bisacodyl (Dulcolax) 10 mg AL QDAY PRN PRN Reason: Constipation unrelieved by [facility] [place] Clopidogrel Bisulfate (Plavix) 75 mg PO QDAY [facility] Isosorbide Mononitrate (Imdur) 30 mg PO QDAY [facility] Last Admin: 03/12/17 13:10 Dose: 30 mg Levothyroxine Sodium (Synthroid) 100 mcg PO DAILY@0600 [facility] Last Admin: 03/12/17 05:54 Dose: 100 mcg Magnesium Hydroxide (Milk Of Magnesia) 30 ml PO Q4H PRN PRN Reason: Constipation Last Admin: 03/12/17 13:02 Dose: 30 ml Metoprolol Tartrate (Lopressor) 50 mg PO BID [facility] Last Admin: 03/12/17 12:55 Dose: 50 mg Morphine Sulfate (Morphine) 2 mg IV Q4H PRN PRN Reason: Pain, Moderate (4-6) Ondansetron HCl (Zofran) 4 mg IV Q8H PRN PRN Reason: N/V unrelieved by Reglan Oxycodone/Acetaminophen (Percocet 5/325) 1 tab PO Q6H PRN PRN Reason: Pain, Moderate (4-6) Pantoprazole Sodium (Protonix) 40 mg PO BID [facility] Zolpidem Tartrate (Ambien) 5 mg PO QHS PRN PRN Reason: Insomnia Last Admin: 03/12/17 00:16 Dose: 5 mg Review of Systems - Review of Systems Constitutional: no weight loss, no weight gain Eyes: no change in vision Ears, Nose, Throat: no decreased hearing, no difficulty swallowing, no epistaxis Breasts: deferred Cardiovascular: no chest pain, no shortness of breath Respiratory: no cough, no shortness of breath, no wheezing, no home oxygen Gastrointestinal: no abdominal pain, no nausea, no vomiting, no constipation, no hematemesis, no BRBPR, no melena, no loss of appetite, no heartburn Female Genitourinary: deferred Musculoskeletal: no gait dysfunction, no joint pain, no muscle pain Integumentary: no rash, no pruritis, no jaundice Neurological: memory loss, gait dysfunction, other (difficulty with speech), no head injury, no paralysis Endocrine: no cold intolerance, no heat intolerance Hematologic/Lymphatic: no easy bruising, no easy bleeding Allergic/Immunologic: no wheezing, no angioedema Exam - Constitutional Vital Signs: Temp Pulse Resp BP Pulse Ox 97.8 F 80 18 109/54 98 03/12/17 13:09 03/12/17 13:09 03/12/17 13:09 03/12/17 13:09 03/12/17 13:09 General appearance: no acute distress, well-nourished - EENT Eyes: PERRL ENT: hearing intact, clear oral mucosa, dentition normal - Neck Neck: supple, normal ROM, no masses or JVD - Respiratory Respiratory effort: normal Respiratory: bilateral: CTA - Breasts Breasts: deferred - Cardiovascular Rhythm: regular Heart Sounds: Present: S1 & S2. Absent: gallop, rub Extremities: No edema, normal color, Full ROM - Gastrointestinal General gastrointestinal: Present: soft, non-tender, non-distended, normal bowel sounds. Absent: hepatomegaly, splenomegaly, mass Rectal Exam: deferred - Genitourinary Female Genitourinary: deferred - Integumentary Integumentary: Present: clear, warm, dry - Neurologic Neurological: alert and oriented x3, other (Impaired speech) - Psychiatric Psychiatric: appropriate mood/affect - Labs CBC & Chem 7: 03/12/17 04:52 03/12/17 04:52 Lab Results: Laboratory Results - last 24 hr 03/11/17 03/11/17 03/11/17 12:31 13:24 14:42 WBC RBC Hgb Hct MCV MCH MCHC RDW Plt Count Lymph % (Auto) [place] % (Auto) Eos % (Auto) Baso % (Auto) Lymph # [place] # Eos # Baso # Seg Neutrophils % Seg Neutrophils # Sodium Potassium Chloride Carbon Dioxide Anion Gap BUN Creatinine Estimated GFR BUN/Creatinine Ratio Glucose POC Glucose Hemoglobin A1c Lactic Acid 2.60 H* Calcium Total Bilirubin AST ALT Alkaline Phosphatase Total Creatine Kinase CK-MB (CK-2) CK-MB (CK-2) Rel Index Troponin T Total Protein Albumin Albumin/Globulin Ratio Urine Color Urine Turbidity Urine pH Ur Specific [place] Urine Protein Urine Glucose (UA) Urine Ketones Urine Blood Urine Nitrite Urine Bilirubin Urine Urobilinogen Ur Leukocyte Esterase Urine WBC (Auto) Urine RBC (Auto) U Epithel Cells (Auto) Salicylates 1.1 L Urine Opiates Screen Urine Methadone Screen Ur Barbiturates Screen Ur Phencyclidine Scrn Ur Amphetamines Screen U Benzodiazepines Scrn Urine Cocaine Screen U Marijuana (THC) Screen Drugs of Abuse Note Blood Type A POSITIVE Antibody Screen Negative Crossmatch See Detail 03/11/17 03/11/17 03/11/17 19:44 22:48 23:38 WBC RBC Hgb Hct MCV MCH MCHC RDW Plt Count Lymph % (Auto) [place] % (Auto) Eos % (Auto) Baso % (Auto) Lymph # [place] # Eos # Baso # Seg Neutrophils % Seg Neutrophils # Sodium Potassium Chloride Carbon Dioxide Anion Gap BUN Creatinine Estimated GFR BUN/Creatinine Ratio Glucose POC Glucose 103 Hemoglobin A1c Lactic Acid Calcium Total Bilirubin AST ALT Alkaline Phosphatase Total Creatine Kinase 24 L CK-MB (CK-2) 1.0 CK-MB (CK-2) Rel Index 4.1 H Troponin T < 0.010 Total Protein Albumin Albumin/Globulin Ratio Urine Color Yellow Urine Turbidity Clear Urine pH 5.0 Ur Specific [place] 1.011 Urine Protein <15 mg/dl Urine Glucose (UA) Neg Urine Ketones Neg Urine Blood Neg Urine Nitrite Neg Urine Bilirubin Neg Urine Urobilinogen < 2.0 Ur Leukocyte Esterase Neg Urine WBC (Auto) 1.0 Urine RBC (Auto) < 1.0 U Epithel Cells (Auto) < 1.0 Salicylates Urine Opiates Screen Urine Methadone Screen Ur Barbiturates Screen Ur Phencyclidine Scrn Ur Amphetamines Screen U Benzodiazepines Scrn Urine Cocaine Screen U Marijuana (THC) Screen Drugs of Abuse Note Blood Type Antibody Screen Crossmatch 03/11/17 03/12/17 03/12/17 23:38 04:52 04:52 WBC 6.2 RBC 3.21 L Hgb 8.5 L Hct 26.1 L MCV 81 MCH 26 L MCHC 33 RDW 16.9 H Plt Count 273 Lymph % (Auto) 24.3 [place] % (Auto) 8.7 H Eos % (Auto) 1.1 Baso % (Auto) 0.5 Lymph # 1.5 [place] # 0.5 Eos # 0.1 Baso # 0.0 Seg Neutrophils % 65.4 Seg Neutrophils # 4.1 Sodium Potassium Chloride Carbon Dioxide Anion Gap BUN Creatinine Estimated GFR BUN/Creatinine Ratio Glucose POC Glucose Hemoglobin A1c 4.8 Lactic Acid Calcium Total Bilirubin AST ALT Alkaline Phosphatase Total Creatine Kinase CK-MB (CK-2) CK-MB (CK-2) Rel Index Troponin T Total Protein Albumin Albumin/Globulin Ratio Urine Color Urine Turbidity Urine pH Ur Specific [place] Urine Protein Urine Glucose (UA) Urine Ketones Urine Blood Urine Nitrite Urine Bilirubin Urine Urobilinogen Ur Leukocyte Esterase Urine WBC (Auto) Urine RBC (Auto) U Epithel Cells (Auto) Salicylates Urine Opiates Screen Presumptive negative Urine Methadone Screen Presumptive negative Ur Barbiturates Screen Presumptive negative Ur Phencyclidine Scrn Presumptive negative Ur Amphetamines Screen Presumptive negative U Benzodiazepines Scrn Presumptive negative Urine Cocaine Screen Presumptive negative U Marijuana (THC) Screen Presumptive negative Drugs of Abuse Note Disclamer Blood Type Antibody Screen Crossmatch 03/12/17 03/12/17 04:52 04:52 WBC RBC Hgb Hct MCV MCH MCHC RDW Plt Count Lymph % (Auto) [place] % (Auto) Eos % (Auto) Baso % (Auto) Lymph # [place] # Eos # Baso # Seg Neutrophils % Seg Neutrophils # Sodium 142 Potassium 3.8 Chloride 107.9 H Carbon Dioxide 21 L Anion Gap 17 BUN 15 Creatinine 0.8 Estimated GFR > 60 BUN/Creatinine Ratio 19 Glucose 98 POC Glucose Hemoglobin A1c Lactic Acid Calcium 8.5 Total Bilirubin 0.50 AST 11 ALT 11 Alkaline Phosphatase 84 Total Creatine Kinase 28 L CK-MB (CK-2) 1.1 CK-MB (CK-2) Rel Index 3.9 Troponin T < 0.010 Total Protein 6.1 L Albumin 3.4 L Albumin/Globulin Ratio 1.3 Urine Color Urine Turbidity Urine pH Ur Specific [place] Urine Protein Urine Glucose (UA) Urine Ketones Urine Blood Urine Nitrite Urine Bilirubin Urine Urobilinogen Ur Leukocyte Esterase Urine WBC (Auto) Urine RBC (Auto) U Epithel Cells (Auto) Salicylates Urine Opiates Screen Urine Methadone Screen Ur Barbiturates Screen Ur Phencyclidine Scrn Ur Amphetamines Screen U Benzodiazepines Scrn Urine Cocaine Screen U Marijuana (THC) Screen Drugs of Abuse Note Blood Type Antibody Screen Crossmatch Laboratory Results - last 24 hr 03/11/17 03/11/17 03/11/17 12:31 13:24 14:42 WBC RBC Hgb Hct MCV MCH MCHC RDW Plt Count Lymph % (Auto) [place] % (Auto) Eos % (Auto) Baso % (Auto) Lymph # [place] # Eos # Baso # Seg Neutrophils % Seg Neutrophils # Sodium Potassium Chloride Carbon Dioxide Anion Gap BUN Creatinine Estimated GFR BUN/Creatinine Ratio Glucose POC Glucose Hemoglobin A1c Lactic Acid 2.60 H* Calcium Total Bilirubin AST ALT Alkaline Phosphatase Total Creatine Kinase CK-MB (CK-2) CK-MB (CK-2) Rel Index Troponin T Total Protein Albumin Albumin/Globulin Ratio Urine Color Urine Turbidity Urine pH Ur Specific [place] Urine Protein Urine Glucose (UA) Urine Ketones Urine Blood Urine Nitrite Urine Bilirubin Urine Urobilinogen Ur Leukocyte Esterase Urine WBC (Auto) Urine RBC (Auto) U Epithel Cells (Auto) Salicylates 1.1 L Urine Opiates Screen Urine Methadone Screen Ur Barbiturates Screen Ur Phencyclidine Scrn Ur Amphetamines Screen U Benzodiazepines Scrn Urine Cocaine Screen U Marijuana (THC) Screen Drugs of Abuse Note Blood Type A POSITIVE Antibody Screen Negative Crossmatch See Detail 03/11/17 03/11/17 03/11/17 19:44 22:48 23:38 WBC RBC Hgb Hct MCV MCH MCHC RDW Plt Count Lymph % (Auto) [place] % (Auto) Eos % (Auto) Baso % (Auto) Lymph # [place] # Eos # Baso # Seg Neutrophils % Seg Neutrophils # Sodium Potassium Chloride Carbon Dioxide Anion Gap BUN Creatinine Estimated GFR BUN/Creatinine Ratio Glucose POC Glucose 103 Hemoglobin A1c Lactic Acid Calcium Total Bilirubin AST ALT Alkaline Phosphatase Total Creatine Kinase 24 L CK-MB (CK-2) 1.0 CK-MB (CK-2) Rel Index 4.1 H Troponin T < 0.010 Total Protein Albumin Albumin/Globulin Ratio Urine Color Yellow Urine Turbidity Clear Urine pH 5.0 Ur Specific [place] 1.011 Urine Protein <15 mg/dl Urine Glucose (UA) Neg Urine Ketones Neg Urine Blood Neg Urine Nitrite Neg Urine Bilirubin Neg Urine Urobilinogen < 2.0 Ur Leukocyte Esterase Neg Urine WBC (Auto) 1.0 Urine RBC (Auto) < 1.0 U Epithel Cells (Auto) < 1.0 Salicylates Urine Opiates Screen Urine Methadone Screen Ur Barbiturates Screen Ur Phencyclidine Scrn Ur Amphetamines Screen U Benzodiazepines Scrn Urine Cocaine Screen U Marijuana (THC) Screen Drugs of Abuse Note Blood Type Antibody Screen Crossmatch 03/11/17 03/12/17 03/12/17 23:38 04:52 04:52 WBC 6.2 RBC 3.21 L Hgb 8.5 L Hct 26.1 L MCV 81 MCH 26 L MCHC 33 RDW 16.9 H Plt Count 273 Lymph % (Auto) 24.3 [place] % (Auto) 8.7 H Eos % (Auto) 1.1 Baso % (Auto) 0.5 Lymph # 1.5 [place] # 0.5 Eos # 0.1 Baso # 0.0 Seg Neutrophils % 65.4 Seg Neutrophils # 4.1 Sodium Potassium Chloride Carbon Dioxide Anion Gap BUN Creatinine Estimated GFR BUN/Creatinine Ratio Glucose POC Glucose Hemoglobin A1c 4.8 Lactic Acid Calcium Total Bilirubin AST ALT Alkaline Phosphatase Total Creatine Kinase CK-MB (CK-2) CK-MB (CK-2) Rel Index Troponin T Total Protein Albumin Albumin/Globulin Ratio Urine Color Urine Turbidity Urine pH Ur Specific [place] Urine Protein Urine Glucose (UA) Urine Ketones Urine Blood Urine Nitrite Urine Bilirubin Urine Urobilinogen Ur Leukocyte Esterase Urine WBC (Auto) Urine RBC (Auto) U Epithel Cells (Auto) Salicylates Urine Opiates Screen Presumptive negative Urine Methadone Screen Presumptive negative Ur Barbiturates Screen Presumptive negative Ur Phencyclidine Scrn Presumptive negative Ur Amphetamines Screen Presumptive negative U Benzodiazepines Scrn Presumptive negative Urine Cocaine Screen Presumptive negative U Marijuana (THC) Screen Presumptive negative Drugs of [facility] Note [facility] Blood Type Antibody Screen Crossmatch 03/12/17 03/12/17 04:52 04:52 WBC RBC Hgb Hct MCV MCH MCHC RDW Plt Count Lymph % (Auto) [place] % (Auto) Eos % (Auto) Baso % (Auto) Lymph # [place] # Eos # Baso # Seg Neutrophils % Seg Neutrophils # Sodium 142 Potassium 3.8 Chloride 107.9 H Carbon Dioxide 21 L Anion Gap 17 BUN 15 Creatinine 0.8 Estimated GFR > 60 BUN/Creatinine Ratio 19 Glucose 98 POC Glucose Hemoglobin A1c Lactic Acid Calcium 8.5 Total Bilirubin 0.50 AST 11 ALT 11 Alkaline Phosphatase 84 Total Creatine Kinase 28 L CK-MB (CK-2) 1.1 CK-MB (CK-2) Rel Index 3.9 Troponin T < 0.010 Total Protein 6.1 L Albumin 3.4 L Albumin/Globulin Ratio 1.3 Urine Color Urine Turbidity Urine pH Ur Specific [place] Urine Protein Urine Glucose (UA) Urine Ketones Urine Blood Urine Nitrite Urine Bilirubin Urine Urobilinogen Ur Leukocyte Esterase Urine WBC (Auto) Urine RBC (Auto) U Epithel Cells (Auto) Salicylates Urine Opiates Screen Urine Methadone Screen Ur Barbiturates Screen Ur Phencyclidine Scrn Ur Amphetamines Screen U Benzodiazepines Scrn Urine Cocaine Screen U Marijuana (THC) Screen Drugs of Abuse Note Blood Type Antibody Screen Crossmatch Assessment and Plan - Patient Problems (1) Stented coronary artery Current Visit: Yes Status: Acute (2) Symptomatic anemia Current Visit: Yes Status: Acute Plan to address problem: Chronic GI blood loss is likely however, she had a STEMI a month and has drug- eluting stents in place typically requiring about a year of dual antiplatelet therapy. Upper endoscopy carries less risk of bleeding on therapy. Colonoscopy , while necessary at some point carries higher risk and ideally Plavix should be stopped for 5 days. I will have to discuss managing her risk with cardiology. No studies are presently scheduled. Would continue her Plavix and ASA and use empiric PPI therapy for now as she has signficant risks to be off medication. (3) CAD (coronary artery disease) Current Visit: No Status: Acute Qualifiers: Coronary Disease-Associated Artery/Lesion type: lime artery [place] vs. transplanted heart: lime heart
[2017-03-12] MEDS ORDERED: HALFPRIN EC PO SCH (15:00)
[2017-03-12] MEDS: PLAVIX PO SCH (15:26)
[2017-03-12 16:21] LABS: Creatine Kinase MB 1.3 ng/mL (0.0-4.0)
[2017-03-12 16:24] LABS: Creatine Kinase 38 units/L (30-135)
[2017-03-12] MEDS: PERCOCET 5/325 PO PRN (18:03)
[2017-03-12] MEDS: PROTONIX PO SCH (21:56)
[2017-03-12] MEDS ORDERED: PROTONIX IV SCH (22:00)
--- NOTE | 2017-03-13 00:20 | Treadmill Report ---
THALLIUM REPORT REASON FOR STUDY: Chest pain. IMAGING PROTOCOL: The patient received 10 mCi of Tc-99m tetrofosmin for rest imaging, and 28 mCi of Tc-99m tetrofosmin for stress imaging. Imaging for all procedures ____ IMAGING PROTOCOL: The patient received 4 mCi of Thallium 201 for rest imaging and 26 mCi of technetium-99 Tetrofosmin for stress imaging. Imaging for all procedures was completed 30-90 minutes following the initial injection of Technetium 99m Tetrofosmin. SPECT imaging in the 180 degree arc was performed in the right anterior oblique projection. Computerized reconstruction of the images was performed for analysis. NUCLEAR IMAGING RESULTS: Normal left ventricular cavity size with no change from stress to rest. Distribution of radionuclide within the left ventricle revealed a large area of photo-induction involving the apex. The degree of photo-induction is moderate. Rest imaging showed only mild improvement in this defect. There is also a medium size area of photo-induction involving the inferior wall. The degree of photo-induction is moderate. Rest imaging showed mild improvement in this defect. In addition, there is a small area of photo-induction involving the inferolateral wall. The degree of photo-induction is moderate. Rest imaging does not show any significant improvement in this defect. Gated SPECT imaging revealed normal global LV systolic function with no significant wall motion abnormalities. The calculated left ventricular ejection fraction is 74%. IMPRESSION: Technically limited study. Large predominantly fixed, mildly reversible apical defect. Medium size, predominantly fixed, mildly reversible inferior wall defect. Small fixed inferolateral defect. Normal global LV systolic function with no significant wall motion abnormalities. EF 74%. These findings suggest prior infarction with mild residual ischemia in the left anterior descending coronary artery territory. There is also suggestion of prior infarction with minimal residual ischemia in the right coronary artery territory. In addition, there is suggestion of a small area of prior infarction in the left circumflex coronary artery territory. However, in the absence of significant wall motion abnormalities ____ the defects noted in this patient may be partly artifactual. JOB# [id number] RAFAEL/NTS
[2017-03-13] MEDS: SYNTHROID PO SCH (05:23)
--- NOTE | 2017-03-13 09:16 | Gastroenterology Progress Note ---
Assessment and Plan - Patient Problems (1) Stented coronary artery Current Visit: Yes Status: Acute (2) Symptomatic anemia Current Visit: Yes Status: Acute Plan to address problem: Heme positive stool and fall in Hgb from 11 to 6.2 over 3 weeks on Plavix and ASA. No active bleeding. Await cardiology assessment. Dr. Baum will see today. Patient had drug-eluting stents place 3 weeks ago. Remains on Plavix and ASA. May be able to consider EGD and AC BE while on dual anti platelet therapy with, but will discuss with Dr. Baum. (3) CAD (coronary artery disease) Current Visit: No Status: Acute Qualifiers: Coronary Disease-Associated Artery/Lesion type: [place] artery [place] vs. transplanted heart: [place] heart Subjective Date of service: 03/13/17 Principal diagnosis: Subacute GI blood loss Interval history: The patient has no complaints. Objective - Exam Narrative Exam: No active bleeding. - Constitutional Vitals: Temp Pulse Resp BP Pulse Ox 98.2 F 61 18 109/63 99 03/13/17 07:14 03/13/17 07:14 03/13/17 07:14 03/13/17 07:14 03/13/17 07:14 General appearance: no acute distress - EENT ENT: hearing intact, clear oral mucosa - Respiratory Respiratory effort: normal Respiratory: bilateral: CTA - Cardiovascular Rhythm: regular - Gastrointestinal General gastrointestinal: Present: soft, non-tender, non-distended, normal bowel sounds - Neurologic Neurological: alert and oriented x3 - Labs CBC & Chem 7: 03/12/17 04:52 03/12/17 04:52 Labs: Laboratory Results - last 24 hr 03/12/17 03/12/17 14:47 14:47 Iron 18 L TIBC 402 % Saturation 4.48 Transferrin 343 Total Creatine Kinase 38 CK-MB (CK-2) 1.3 CK-MB (CK-2) Rel Index 3.4 Troponin T < 0.010 Laboratory Results - last 24 hr 03/12/17 03/12/17 14:47 14:47 Iron 18 L TIBC 402 % Saturation 4.48 Transferrin 343 Total Creatine Kinase 38 CK-MB (CK-2) 1.3 CK-MB (CK-2) Rel Index 3.4 Troponin T < 0.010
[2017-03-13] MEDS: LOPRESSOR PO SCH ×2 (09:56→22:13)
[2017-03-13] MEDS: IMDUR PO SCH (09:56)
[2017-03-13] MEDS: PROTONIX PO SCH ×2 (09:56→22:13)
[2017-03-13] MEDS: PLAVIX PO SCH (09:56)
[2017-03-13] MEDS: PERCOCET 5/325 PO PRN (09:56)
[2017-03-13 09:59] LABS: Hematocrit 25.1 % (30.3-42.9); Hemoglobin 8.2 gm/dl (10.1-14.3); Mean Corpuscular HGB Conc 33 % (30-34); Mean Corpuscular Hemoglobin 27 pg (28-32); Mean Corpuscular Volume 82 fl (79-97); Platelet Count 288 K/mm3 (140-440); Red Blood Count 3.06 M/mm3 (3.65-5.03); Red Cell Distribution Width 17.5 % (13.2-15.2); White Blood Count 5.8 K/mm3 (4.5-11.0)
--- NOTE | 2017-03-13 11:25 | Consultation ---
History of Present Illness Consult date: 03/13/17 Consult reason: chest pain History of present illness: This is a 62yr old woman with underlying Dementia who was brought in with dizziness, admitted with symptomatic anemia. Initial labs in the emergency department shows an H&H of 6.2/20.3. Patient has a history of coronary artery disease. It would be recalled the patient was hospitalized 3 weeks ago with an acute MT. She was found to have subacute occlusion of the RCA within prior stent which was treated with angioplasty and stenting using drug eluting stents. Patient is on dual oral antiplatelet therapy with plavix and aspirin. Normal left ventricular ejection fraction 55% on echocardiogram. Today, patient is feeling better. She denies chest pain and shortness of breath. There is no dizziness. A 12 lead ECG is a sinus rhythm with old inferior MT, no acute ischemic changes. Past History Past Medical History: stroke Family history: no significant family history Medications and Allergies Allergies Allergy/AdvReac Type Severity Reaction Status Date / Time tetracycline Allergy Unknown Unknown Verified 02/12/17 14:41 Home Medications Medication Instructions Recorded Confirmed Last Taken Type Aspirin [Aspirin BABY CHEW TAB] 81 mg PO QDAY 30 Days tab.chew 02/15/17 Unknown Rx AtorvaSTATin [Lipitor] 40 mg PO QHS #30 tablet 02/15/17 03/13/17 Unknown Rx Clopidogrel [Plavix] 75 mg PO QDAY 30 Days tablet 02/15/17 03/13/17 Unknown Rx Famotidine [Pepcid] 20 mg PO QDAY tablet 02/15/17 03/13/17 Unknown Rx ISOSORBIDE MONOnitrate [Imdur ER] 30 mg PO QDAY 30 Days tablet 02/15/17 Unknown Rx Levothyroxine [Synthroid] 100 mcg PO DAILY@0600 30 Days 02/15/17 03/13/17 Unknown Rx tablet Metoprolol [Lopressor TAB] 50 mg PO BID 30 Days tablet 02/15/17 03/13/17 Unknown Rx Active Meds: Active Medications Acetaminophen (Tylenol) 650 mg PO Q4H PRN PRN Reason: Pain MILD(1-3)/Fever >100.5/BRAND Last Admin: 03/12/17 21:56 Dose: 650 mg Atorvastatin Calcium (Lipitor) 40 mg PO QHS [facility] Last Admin: 03/12/17 21:56 Dose: 40 mg Bisacodyl (Dulcolax) 10 mg SC QDAY PRN PRN Reason: Constipation unrelieved by MOM Clopidogrel Bisulfate (Plavix) 75 mg PO QDAY [facility] Last Admin: 03/13/17 09:56 Dose: 75 mg Isosorbide Mononitrate (Imdur) 30 mg PO QDAY [facility] Last Admin: 03/13/17 09:56 Dose: 30 mg Levothyroxine Sodium (Synthroid) 100 mcg PO DAILY@0600 [facility] Last Admin: 03/13/17 05:23 Dose: 100 mcg Magnesium Hydroxide (Milk Of Magnesia) 30 ml PO Q4H PRN PRN Reason: Constipation Last Admin: 03/12/17 13:02 Dose: 30 ml Metoprolol Tartrate (Lopressor) 50 mg PO BID [facility] Last Admin: 03/13/17 09:56 Dose: 50 mg Morphine Sulfate (Morphine) 2 mg IV Q4H PRN PRN Reason: Pain, Moderate (4-6) Ondansetron HCl (Zofran) 4 mg IV Q8H PRN PRN Reason: N/V unrelieved by Reglan Last Admin: 03/13/17 09:04 Dose: 4 mg Oxycodone/Acetaminophen (Percocet 5/325) 1 tab PO Q6H PRN PRN Reason: Pain, Moderate (4-6) Last Admin: 03/13/17 09:56 Dose: 1 tab Pantoprazole Sodium (Protonix) 40 mg PO BID [facility] Last Admin: 03/13/17 09:56 Dose: 40 mg Zolpidem Tartrate (Ambien) 5 mg PO QHS PRN PRN Reason: Insomnia Last Admin: 03/12/17 00:16 Dose: 5 mg Physical Examination Vital Signs Temp Pulse Resp BP 98.0 F 100 H 16 90/70 03/11/17 11:42 03/11/17 11:42 03/11/17 11:42 03/11/17 11:42 General appearance: no acute distress HEENT: Positive: PERRL Cardiac: Positive: Reg Rate and Rhythm Lungs: Positive: Decreased Breath Sounds Neuro: Positive: Grossly Intact Results 03/13/17 09:18 03/12/17 04:52 Cardiac Enzymes 03/12/17 Range/Units 14:47 CK-MB (CK-2) 1.3 (0.0-4.0) ng/mL CBC 03/13/17 Range/Units 09:18 WBC 5.8 (4.5-11.0) K/mm3 RBC 3.06 L (3.65-5.03) M/mm3 Hgb 8.2 L (10.1-14.3) gm/dl Hct 25.1 L (30.3-42.9) % Plt Count 288 (140-440) K/mm3 Assessment and Plan Symptomatic Anemia Hypothyroidism Hx of CAD with recent PCI on plavix and aspirin Prior CVA Hypertension
[2017-03-13] MEDS ORDERED: NACL 0.9% 500 ML IV ONE (12:08)
[2017-03-13] MEDS ORDERED: NACL 0.9% 500 ML 500 ML IV SCH (13:00)
--- NOTE | 2017-03-13 15:21 | Progress Note ---
Assessment and Plan /Chest pain, likely due to severe anemia transfused 2 unit of PRBC Patient is s/p Cardiac cath showed 100% oclusion of the mid RCA, and RCA Stent within prior PCI with drug eluting stent placement during last admission on Monitor at telemetry Continue on beta blockers, statin, cont Supplemental oxygen, Echocardiogram during last visit was ef 55%-60% Consulted cardiology, hold Aspirin, Plavix for EGD /severe anemia likley from medications, cannot r/o PUD f/u anemia work up transfused 2 unit yesterday consulted GI, plan for EGD soon /Near stncope Most likely due to volume depletion from severe anemia CT of the head showed no acute process. Frequent neuro checks Negative carotid doppler IV fluid hydration Monitor Orthostatic blood pressure /Hypothyroidism Continue oral synthroid /CAD (coronary artery disease) with recent STEMI low cholesterol diet, cont statin cont to hold plavix and aspirin for anemia until EGD / h/o Tobacco abuse smoking cessation counseling done. Patient strongly advised to quit. /DVT prophylaxis scd Brief history: 62-year-old female the past medical history of CAD with stent placement, brain aneurysm, hypertension, and dementia presents to the hospital complaints of chest pain and near syncopal episode. Radiological data: Stress test Carotid Doppler CT head Hospitalist Physical exam: GENERAL: well-developed and well-nourished AAF lying on bed appeared to be in no discomfort. HEENT: Normocephalic. Atraumatic. No conjunctival congestion or icterus. Patient has moist mucous membranes. NECK: Supple. Trachea midline. CHEST/LUNGS: Clear to auscultated bilaterally, breathing nonlabored. No wheezes crackles or rhonchi. HEART/CARDIOVASCULAR: Regular in rate and rhythm. S1 and S2 positive. ABDOMEN: Abdomen is soft, nontender. Patient has normal bowel sounds. SKIN: There is no rash. Warm and dry. NEURO: No focal motor deficit. Follows command. MUSCULOSKELETAL: No joint effusion or tenderness. EXTRIMITY: No edema, no cyanosis or clubbing. PSYCH: Cooperative. Subjective Date of service: 03/13/17 Principal diagnosis: Subacute GI blood loss Interval history: Pt seen and examined completed blood transfusion discussed with GI and cardiology will hold aspirin and plavix for EGD no further black stool since yesterday Objective - Constitutional Vitals: Vital Signs - 12hr 03/13/17 03/13/1717 04:03 05:03 05:29 Temperature 98.2 F Pulse Rate 56 L 66 67 Respiratory 18 18 Rate Blood Pressure 110/64 135/70 O2 Sat by Pulse 100 100 Oximetry 03/13/17 03/13/17 03/13/17 05:31 07:14 10:00 Temperature 98.2 F Pulse Rate 75 61 55 L Respiratory 18 18 Rate Blood Pressure 121/60 109/63 O2 Sat by Pulse 100 99 Oximetry 03/13/17 11:22 Temperature 98.1 F Pulse Rate 54 L Respiratory 18 Rate Blood Pressure 90/49 O2 Sat by Pulse 100 Oximetry - Labs CBC & Chem 7: 03/13/17 09:18 03/12/17 04:52 Labs: Abnormal lab results 03/12/17 03/13/17 Range/Units 14:47 09:18 RBC 3.06 L (3.65-5.03) M/mm3 Hgb 8.2 L (10.1-14.3) gm/dl Hct 25.1 L (30.3-42.9) % MCH 27 L (28-32) pg RDW 17.5 H (13.2-15.2) % Iron 18 L (37-170) ug/dL
[2017-03-13] MEDS: AMBIEN PO PRN (22:21)
[2017-03-14] MEDS: SYNTHROID PO SCH (06:34)
--- NOTE | 2017-03-14 10:14 | Progress Note ---
Assessment and Plan Symptomatic Anemia Hypothyroidism Hx of CAD with recent PCI plavix and aspirin currently on hold Prior CVA Hypertension Recommendations: You may proceed with GI workup as planned for further evaluation and management of the anemia. Plavix and aspirin held in anticipation of upper GI endoscopy and planned biopsy. The patient and has been advised elevated risk of subacute thrombosis since the patient is not able to maintain optimal antiplatelet regimen in the setting of her severe anemia. Subjective Date of service: 03/14/17 Principal diagnosis: Subacute GI blood loss Interval history: No cardiac complaints. Family member at bedside. Objective Vital Signs Temp Pulse Resp BP BP Pulse Ox 03/14/17 07:22 97.6 F 57 L 18 151/85 100 03/14/17 05:05 97.6 F 17 102/64 03/14/17 01:10 98.7 F 85 17 135/65 98 03/14/17 01:05 98.7 F 84 17 130/67 100 03/14/17 01:01 98.7 F 63 17 104/56 99 03/13/17 20:36 98.4 F 55 L 18 113/58 100 03/13/17 14:20 98.4 F 65 18 99/53 100 03/13/17 11:22 98.1 F 54 L 18 90/49 100 - Physical Examination General: No Apparent Distress HEENT: Positive: PERRL Cardiac: Positive: Reg Rate and Rhythm Neuro: Positive: Grossly Intact
[2017-03-14] MEDS: LOPRESSOR PO SCH ×2 (11:01→21:24)
[2017-03-14] MEDS: PROTONIX PO SCH ×2 (11:01→21:24)
--- NOTE | 2017-03-14 12:07 | Gastroenterology Progress Note ---
<DOMITILA MORA - Last Filed: 03/14/17 12:10> Assessment and Plan 1.stented coronary artery 2.symptomatic anemia 3.CAD -heme positive stool -HGB 8.2-stable -continue to monitor H/H and transfuse as needed -currently ASA and plavix on hold -no signs of active bleeding overnight or this am -cardiac clearance given for further workup of anemia with endoscopy -will schedule for EGD in am -NPO after MN -continue PPI and supportive care -will follow Subjective Date of service: 03/14/17 Principal diagnosis: anemia Interval history: Patient resting in bed w/o acute distress and family at bedside. No signs of active bleeding overnight or this am. Objective - Constitutional Vitals: Temp Pulse Resp BP Pulse Ox 97.6 F 57 L 18 151/85 100 03/14/17 07:22 03/14/17 07:22 03/14/17 07:22 03/14/17 07:22 03/14/17 07:22 General appearance: no acute distress - EENT Eyes: PERRL, EOM intact ENT: hearing intact - Respiratory Respiratory: bilateral: CTA - Cardiovascular Rhythm: regular Heart Sounds: Present: S1 & S2 - Gastrointestinal General gastrointestinal: Present: soft, non-tender, non-distended, normal bowel sounds - Integumentary Integumentary: Present: warm, dry - Labs CBC & Chem 7: 03/13/17 09:18 03/12/17 04:52 <DAVIS HU - Last Filed: 03/14/17 15:00> Assessment and Plan - Patient Problems (1) Stented coronary artery Current Visit: Yes Status: Acute (2) Symptomatic anemia Current Visit: Yes Status: Acute Plan to address problem: Subacute GI blood loss is likely in the setting. Had a significant drop in H&H over several weeks. I discussed care with Dr. Baum and with patient. Needs inpatient work up due to the risks of further blood loss on dual antiplatelet therapy. She understands some risks of stent occlusion while Plavix is not being taken. EGD tomorrow and colonoscopy Monday after a few more days off Plavix. She may continue low dose ASA at this time. (3) CAD (coronary artery disease) Current Visit: No Status: Acute Qualifiers: Coronary Disease-Associated Artery/Lesion type: [place] artery [place] vs. transplanted heart: [place] heart Objective - Constitutional Vitals: Temp Pulse Resp BP Pulse Ox 97.7 F 64 18 104/61 97 03/14/17 13:59 03/14/17 13:59 03/14/17 13:59 03/14/17 13:59 03/14/17 13:59 - Labs CBC & Chem 7: 03/13/17 09:18 03/12/17 04:52
--- NOTE | 2017-03-14 16:32 | Progress Note ---
Assessment and Plan /Chest pain, likely due to severe anemia transfused 2 unit of PRBC on 03/11/17 Patient is s/p Cardiac cath showed 100% oclusion of the mid RCA, and RCA Stent within prior PCI with drug eluting stent placement during last admission on Monitor at telemetry Continue on beta blockers, statin, cont Supplemental oxygen, Echocardiogram during last visit was ef 55%-60% Consulted cardiology, hold Aspirin, Plavix for EGD /severe anemia likley from medications, cannot r/o PUD f/u anemia work up transfused 2 unit yesterday consulted GI, plan for EGD tomorrow /Near stncope Most likely due to volume depletion from severe anemia CT of the head showed no acute process. Frequent neuro checks Negative carotid doppler IV fluid hydration Monitor Orthostatic blood pressure /Hypothyroidism Continue oral synthroid /CAD (coronary artery disease) with recent STEMI low cholesterol diet, cont statin cont to hold plavix and aspirin for anemia until EGD / h/o Tobacco abuse smoking cessation counseling done. Patient strongly advised to quit. /DVT prophylaxis scd Brief history: 62-year-old female the past medical history of CAD with stent placement, brain aneurysm, hypertension, and dementia presents to the hospital complaints of chest pain and near syncopal episode. Radiological data: Stress test Carotid Doppler CT head Hospitalist Physical exam: GENERAL: well-developed and well-nourished AAF lying on bed appeared to be in no discomfort. HEENT: Normocephalic. Atraumatic. No conjunctival congestion or icterus. Patient has moist mucous membranes. NECK: Supple. Trachea midline. CHEST/LUNGS: Clear to auscultated bilaterally, breathing nonlabored. No wheezes crackles or rhonchi. HEART/CARDIOVASCULAR: Regular in rate and rhythm. S1 and S2 positive. ABDOMEN: Abdomen is soft, nontender. Patient has normal bowel sounds. SKIN: There is no rash. Warm and dry. NEURO: No focal motor deficit. Follows command. MUSCULOSKELETAL: No joint effusion or tenderness. EXTRIMITY: No edema, no cyanosis or clubbing. PSYCH: Cooperative. Subjective Date of service: 03/14/17 Principal diagnosis: Subacute GI blood loss Interval history: Pt seen and examined completed blood transfusion discussed with GI and cardiology will hold aspirin and plavix for EGD no further black stool, plan for EGD tomorrow Objective - Constitutional Vitals: Vital Signs - 12hr 03/14/17 03/14/17 03/14/17 05:05 07:22 12:24 Temperature 97.6 F 97.6 F 97.7 F Pulse Rate 57 L 64 Respiratory 17 18 18 Rate Blood Pressure 102/64 151/85 104/61 Blood Pressure [Left] O2 Sat by Pulse 100 99 Oximetry 03/14/17 13:59 Temperature 97.7 F Pulse Rate 64 Respiratory 18 Rate Blood Pressure Blood Pressure 104/61 [Left] O2 Sat by Pulse 97 Oximetry - Labs CBC & Chem 7: 03/13/17 09:18 03/12/17 04:52
[2017-03-14] MEDS: AMBIEN PO PRN (21:26)
[2017-03-15] MEDS: SYNTHROID PO SCH (06:09)
[2017-03-15] MEDS: LOPRESSOR PO SCH ×2 (10:00→21:25)
[2017-03-15] MEDS: PROTONIX PO SCH ×2 (10:00→21:25)
--- NOTE | 2017-03-15 11:32 | Progress Note ---
Assessment and Plan Symptomatic Anemia Hypothyroidism Hx of CAD with recent PCI plavix and aspirin currently on hold Prior CVA Hypertension Recommendations: You may proceed with GI workup as planned for further evaluation and management of the anemia. Plavix and aspirin held in anticipation of upper GI endoscopy and planned biopsy. The patient and has been advised elevated risk of subacute thrombosis since the patient is not able to maintain optimal antiplatelet regimen in the setting of her severe anemia. Subjective Date of service: 03/15/17 Principal diagnosis: Subacute GI blood loss Interval history: Patient denies chest pain or shortness of breath Objective Vital Signs Temp Pulse Resp BP BP Pulse Ox 03/15/17 10:00 54 L 03/15/17 08:52 98.0 F 54 L 18 102/49 96 03/15/17 06:11 97.9 F 58 L 20 120/51 99 03/15/17 04:00 52 L 03/14/17 23:44 98.6 F 70 20 136/70 100 03/14/17 21:24 63 103/54 03/14/17 20:08 98.6 F 63 20 103/54 97 03/14/17 15:50 98.7 F 62 18 102/55 100 03/14/17 13:59 97.7 F 64 18 104/61 97 03/14/17 12:24 97.7 F 64 18 104/61 99 - Physical Examination General: No Apparent Distress HEENT: Positive: PERRL Neck: Positive: neck supple Cardiac: Positive: Reg Rate and Rhythm Lungs: Positive: Normal Exam Neuro: Positive: Grossly Intact
[2017-03-15 12:04] LABS: Hematocrit 28.5 % (30.3-42.9)
[2017-03-15] MEDS ORDERED: WATER FOR IRRIG STERILE IR ONE (12:57)
[2017-03-15] MEDS ORDERED: XYLOCAINE MPF 2% ONE (13:00)
[2017-03-15] MEDS ORDERED: NACL 0.9% 1000 ML 1,000 ML IV SCH (13:00)
--- NOTE | 2017-03-15 13:54 | Anesthesia Consultation ---
Anesthesia Consult and Med Hx Date of service: 03/15/17 - Airway Anesthetic Teeth Evaluation: Poor (missing) ROM Head & Neck: Adequate Mental/Hyoid Distance: Adequate Mallampati Class: Class I Intubation Access Assessment: Good - Pulmonary Exam CTA: Yes - Cardiac Exam Cardiac Exam: RRR - Pre-Operative Health Status ASA Pre-Surgery Classification: ASA3 Proposed Anesthetic Plan: MAC - Pre-Anesthesia Comment Pre-Anesthesia Comments: plavix held, EF 74% - Cardiovascular System Hx Hypertension: Yes Hx Coronary Artery Disease: Yes Hx Percutaneous Transluminal Coronary Angioplasty (PTCA): Yes - Central Nervous System CVA: Yes - Endocrine Hx End Stage Renal Disease: No
--- NOTE | 2017-03-15 13:56 | Anesthesia Day of Surgery ---
Anesthesia Day of Surgery - Day of Surgery Patient Examined: Yes Patient H&P Reviewed: Yes Patient is NPO: Yes Beta Blockers: No (held per floor, decreased bp )
[2017-03-15] MEDS ORDERED: DIPRIVAN 10 MG/ML IV ONE ×2 (13:57)
--- NOTE | 2017-03-15 14:16 | Operative Report ---
Operative Report Operative Report: Date of procedure: 03/15/2017 Procedure: Esophagogastroduodenoscopy with argon plasma coagulation for hemorrhage control and biopsies of the antrum. Preprocedure diagnosis: Subacute GI bleeding on Plavix and aspirin. Significant anemia requiring transfusion. 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 Small shallow antral ulcer. Endoscopist: Dr. Nicholson Anesthesia: Monitored anesthesia care per anesthesia department Medications: Propofol per anesthesia Estimated blood loss: 0 After careful discussion of the nature and purpose of the procedure as well as details the technique risks benefits and alternatives consent was obtained. The patient was placed in the left lateral decubitus position and medicated per anesthesia. The tip of the [employer] EQ 570 video scope was passed per orum under direct vision into the esophagus and advanced into the stomach and descending duodenum. The descending duodenum and pylorus were symmetrical and normal. There was a 5 mm arteriovenous malformation present in the duodenal bulb. The lesion was not actively bleeding but was felt to be a potential source of blood loss in this setting. The scope was withdrawn into the stomach and the stomach then gently insufflated with air. The antrum reveals a 6 mm linear ulcer in the lower third. No stigmata of bleeding present. 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 No bleeding was incurred with this procedure. 3 biopsies were taken in the antrum to assess for H. pylori infection. The stomach was further insufflated and the scope was then retroflexed and partially withdrawn. The cardia, fundus , and body of the stomach were within normal limits and easily distensible.The scope was then withdrawn in the forward position. The esophagogastric junction was at 38 cm. The esophageal body was normal throughout. The procedure was was well tolerated and the patient was observed in recovery. 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 Tiny linear ulcer in the antrum with benign features and no stigmata of recent bleeding. Plan: PPI therapy. Further evaluation with colonoscopy in 2 days when the patient has been off Plavix longer. Electronically signed: Epi Nicholson MD
--- NOTE | 2017-03-15 14:24 | Post Anesthesia Evaluation ---
- Post Anesthesia Evaluation Patient Participated: Yes Airway Patent: Yes Stable Respiratory Function: Yes Nausea/Vomiting: No Temp > 96.8F: Yes Pain Manageable: Yes Adequeate Hydration: Yes Anesthesia Complications: No Block Receding Appropriately: Not Applicable Patient on Ventilator: No
--- NOTE | 2017-03-15 16:09 | Progress Note ---
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 There is a Tiny linear ulcer in the antrum with benign features and no stigmata of recent bleeding. GI recommended to cont ppi and colonoscopy in next two days /Chest pain, likely due to demand ischemia from severe anemia transfused 2 unit of PRBC on 03/11/17 Patient is s/p Cardiac cath showed 100% oclusion of the mid RCA, and RCA Stent within prior PCI with drug eluting stent placement during last admission on Monitor at telemetry, Continue on beta blockers, statin, cont Supplemental oxygen, Echocardiogram during last visit was ef 55%-60% Consulted cardiology, on hold Aspirin, Plavix for EGD /Near stncope Most likely due to volume depletion from severe anemia CT of the head showed no acute process. Frequent neuro checks Negative carotid doppler IV fluid hydration Monitor Orthostatic blood pressure /Hypothyroidism Continue oral synthroid /CAD (coronary artery disease) with recent STEMI low cholesterol diet, cont statin cont to hold plavix and aspirin for anemia until EGD / h/o Tobacco abuse smoking cessation counseling done. Patient strongly advised to quit. /DVT prophylaxis scd Brief history: 62-year-old female the past medical history of CAD with stent placement, brain aneurysm, hypertension, and dementia presents to the hospital complaints of chest pain and near syncopal episode. Radiological data: Stress test Carotid Doppler CT head Hospitalist Physical exam: GENERAL: well-developed and well-nourished AAF lying on bed appeared to be in no discomfort. HEENT: Normocephalic. Atraumatic. No conjunctival congestion or icterus. Patient has moist mucous membranes. NECK: Supple. Trachea midline. CHEST/LUNGS: Clear to auscultated bilaterally, breathing nonlabored. No wheezes crackles or rhonchi. HEART/CARDIOVASCULAR: Regular in rate and rhythm. S1 and S2 positive. ABDOMEN: Abdomen is soft, nontender. Patient has normal bowel sounds. SKIN: There is no rash. Warm and dry. NEURO: No focal motor deficit. Follows command. MUSCULOSKELETAL: No joint effusion or tenderness. EXTRIMITY: No edema, no cyanosis or clubbing. PSYCH: Cooperative. Subjective Date of service: 03/15/17 Principal diagnosis: Subacute GI blood loss Interval history: Pt seen and examined discussed with GI and cardiology on hold aspirin and plavix for EGD s/p EGD today, tolerated well Now eating dinner Objective - Constitutional Vitals: Vital Signs - 12hr 03/15/17 03/15/17 03/15/17 06:11 08:52 10:00 Temperature 97.9 F 98.0 F Pulse Rate 58 L 54 L 54 L Respiratory 20 18 Rate Blood Pressure 120/51 Blood Pressure 102/49 [Left] O2 Sat by Pulse 99 96 Oximetry 03/15/17 03/15/17 03/15/17 12:56 13:03 14:12 Temperature 99 F 99 F 98.3 F Pulse Rate 58 L 58 L 69 Respiratory 17 17 15 Rate Blood Pressure 149/69 149/69 115/62 Blood Pressure [Left] O2 Sat by Pulse 99 99 100 Oximetry 03/15/17 14:20 Temperature Pulse Rate 61 Respiratory 15 Rate Blood Pressure 113/55 Blood Pressure [Left] O2 Sat by Pulse 100 Oximetry - Labs CBC & Chem 7: 03/15/17 11:43 03/12/17 04:52 Labs: Abnormal lab results 03/15/17 Range/Units 11:43 Hgb 9.0 L (10.1-14.3) gm/dl Hct 28.5 L (30.3-42.9) %
[2017-03-16] MEDS: SYNTHROID PO SCH (06:16)
--- NOTE | 2017-03-16 09:19 | Gastroenterology Progress Note ---
Assessment and Plan - Patient Problems (1) Stented coronary artery Current Visit: Yes Status: Acute (2) Symptomatic anemia Current Visit: Yes Status: Acute Plan to address problem: Stable GI stinson. 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 Colonoscopy is planned for tomorrow AM. Prep today. (3) CAD (coronary artery disease) Current Visit: No Status: Acute Qualifiers: Coronary Disease-Associated Artery/Lesion type: [place] artery [place] vs. transplanted heart: [place] heart Subjective Date of service: 03/16/17 Principal diagnosis: Subacute GI blood loss Interval history: Feels OK. Denies any pain, bleeding, melena. Objective - Constitutional Vitals: Temp Pulse Resp BP Pulse Ox 98.2 F 62 20 108/59 100 03/16/17 05:01 03/16/17 05:01 03/16/17 05:01 03/16/17 05:01 03/16/17 05:01 General appearance: no acute distress - EENT ENT: hearing intact, clear oral mucosa, dentition normal - Respiratory Respiratory effort: normal Respiratory: bilateral: CTA - Cardiovascular Rhythm: regular - Gastrointestinal General gastrointestinal: Present: soft, non-tender, non-distended, normal bowel sounds - Neurologic Neurological: alert and oriented x3 - Labs CBC & Chem 7: 03/15/17 11:43 03/12/17 04:52 Labs: Laboratory Results - last 24 hr 03/15/17 11:43 Hgb 9.0 L Hct 28.5 L
[2017-03-16] MEDS ORDERED: GOLYTELY PO SCH (10:00)
[2017-03-16] MEDS ORDERED: DULCOLAX PO ONE (10:30)
[2017-03-16] MEDS: LOPRESSOR PO SCH ×2 (10:36→22:31)
[2017-03-16] MEDS: PROTONIX PO SCH ×2 (10:46→23:40)
[2017-03-16] MEDS: PERCOCET 5/325 PO PRN (11:10)
--- NOTE | 2017-03-16 11:38 | Progress Note ---
Assessment and Plan - Patient Problems (1) Symptomatic anemia Current Visit: Yes Status: Acute Plan to address problem: GI to proceed with lower endoscopy in the morning, following which we will resume Plavix. Due to her underlying coronary artery disease, it would be prudent to administer additional blood transfusion to keep hematocrit at least 30. (2) Coronary angioplasty status Current Visit: Yes Status: Acute Plan to address problem: Patient status post recent coronary intervention with drug-eluting stent deployment to the mid right coronary artery. Will immediately resume oral antiplatelet therapy with Plavix tomorrow, after lower GI endoscopy is completed. Subjective Date of service: 03/16/17 Principal diagnosis: Subacute GI blood loss Interval history: The patient is comfortable, status post upper GI endoscopy. Lower endoscopy is planned for tomorrow, following which we will immediately resume Plavix therapy. Following her initial blood transfusion, her hematocrit has remained between 27 and 28. It will be noted that her baseline month ago before the current bleeding episode was 37-38. Objective Vital Signs Temp Pulse Resp BP BP Pulse Ox 03/16/17 11:10 18 03/16/17 10:36 75 99/46 03/16/17 08:22 75 100 03/16/17 08:21 98.3 F 85 18 99/46 99 03/16/17 05:01 98.2 F 62 20 108/59 100 03/16/17 04:00 56 L 03/16/17 00:13 98.4 F 58 L 20 132/57 98 03/15/17 21:25 59 L 03/15/17 19:45 59 L 20 121/66 100 03/15/17 17:46 98.2 F 61 18 116/59 100 03/15/17 16:33 64 116/59 100 03/15/17 14:20 61 15 113/55 100 03/15/17 14:12 98.3 F 69 15 115/62 100 03/15/17 13:03 99 F 58 L 17 149/69 99 03/15/17 12:56 99 F 58 L 17 149/69 99 - Physical Examination General: No Apparent Distress HEENT: Positive: PERRL Neck: Positive: neck supple Cardiac: Positive: Reg Rate and Rhythm Lungs: Positive: Decreased Breath Sounds Neuro: Positive: Grossly Intact Abdomen: Positive: Soft Skin: Positive: Clear Extremities: Absent: edema - Labs and Meds CBC 03/15/17 Range/Units 11:43 Hgb 9.0 L (10.1-14.3) gm/dl Hct 28.5 L (30.3-42.9) %
--- NOTE | 2017-03-16 16:04 | Progress Note ---
Assessment and Plan /Severe blood loss anemia due duedenal ulcer and AVM transfused 2 unit 03/11/17 consulted GI, s/p EGD 03/15/17 EGD showed AVM in the duodenal bulb, status post cautery for ablation. There is a Tiny linear ulcer in the antrum with benign features and no stigmata of recent bleeding. GI recommended to cont ppi and colonoscopy for tomorrow /Chest pain, likely due to demand ischemia from severe anemia transfused 2 unit of PRBC on 03/11/17 Patient is s/p Cardiac cath showed 100% oclusion of the mid RCA, and RCA Stent within prior PCI with drug eluting stent placement during last admission on Monitor at telemetry, Continue on beta blockers, statin, cont Supplemental oxygen, Echocardiogram during last visit was ef 55%-60% Consulted cardiology, on hold Aspirin, Plavix for EGD/colonoscopy /Near stncope Most likely due to volume depletion from severe anemia CT of the head showed no acute process. Frequent neuro checks Negative carotid doppler IV fluid hydration Monitor Orthostatic blood pressure /Hypothyroidism Continue oral synthroid /CAD (coronary artery disease) with recent STEMI low cholesterol diet, cont statin cont to hold plavix and aspirin for anemia until colonoscopy done / h/o Tobacco abuse smoking cessation counseling done. Patient strongly advised to quit. /DVT prophylaxis scd Brief history: 62-year-old female the past medical history of CAD with stent placement, brain aneurysm, hypertension, and dementia presents to the hospital complaints of chest pain and near syncopal episode. Radiological data: Stress test Carotid Doppler CT head Hospitalist Physical exam: GENERAL: well-developed and well-nourished AAF lying on bed appeared to be in no discomfort. HEENT: Normocephalic. Atraumatic. No conjunctival congestion or icterus. Patient has moist mucous membranes. NECK: Supple. Trachea midline. CHEST/LUNGS: Clear to auscultated bilaterally, breathing nonlabored. No wheezes crackles or rhonchi. HEART/CARDIOVASCULAR: Regular in rate and rhythm. S1 and S2 positive. ABDOMEN: Abdomen is soft, nontender. Patient has normal bowel sounds. SKIN: There is no rash. Warm and dry. NEURO: No focal motor deficit. Follows command. MUSCULOSKELETAL: No joint effusion or tenderness. EXTRIMITY: No edema, no cyanosis or clubbing. PSYCH: Cooperative. Subjective Date of service: 03/16/17 Principal diagnosis: Subacute GI blood loss Interval history: Pt seen and examined discussed with GI and cardiology on hold aspirin and plavix for colonoscopy no further bloody BM, updated family at bedside Objective - Constitutional Vitals: Vital Signs - 12hr 03/16/17 03/16/17 03/16/17 05:01 08:21 08:22 Temperature 98.2 F 98.3 F Pulse Rate 62 85 75 Respiratory 20 18 Rate Blood Pressure 108/59 99/46 O2 Sat by Pulse 100 99 100 Oximetry 03/16/17 03/16/17 10:36 11:10 Temperature Pulse Rate 75 Respiratory 18 Rate Blood Pressure 99/46 O2 Sat by Pulse Oximetry - Labs CBC & Chem 7: 03/17/17 05:02 03/17/17 05:02
[2017-03-16] MEDS: BABY ASPIRIN PO SCH (22:30)
[2017-03-17 06:19] LABS: Hematocrit 25.8 % (30.3-42.9); Hemoglobin 8.1 gm/dl (10.1-14.3)
[2017-03-17] MEDS: SYNTHROID PO SCH (06:34)
[2017-03-17 06:38] LABS: Anion Gap 19 mmol/L; BUN/Creatinine Ratio 15; Blood Urea Nitrogen 12 mg/dL (7-17); Calcium 8.9 mg/dL (8.4-10.2); Carbon Dioxide 20 mmol/L (22-30); Chloride 110.7 mmol/L (98-107); Glucose 82 mg/dL (65-100); Potassium 4.1 mmol/L (3.6-5.0); Sodium 146 mmol/L (137-145)
[2017-03-17] MEDS ORDERED: WATER FOR IRRIG STERILE IR ONE (07:49)
[2017-03-17] MEDS ORDERED: NACL 0.9% 1000 ML 1,000 ML ONE (07:54)
--- NOTE | 2017-03-17 08:46 | Anesthesia Consultation ---
Anesthesia Consult and Med Hx Date of service: 03/17/17 - Airway Anesthetic Teeth Evaluation: Poor ROM Head & Neck: Adequate Mental/Hyoid Distance: Adequate Mallampati Class: Class II Intubation Access Assessment: Probably Good - Pulmonary Exam CTA: Yes - Cardiac Exam Cardiac Exam: RRR - Pre-Operative Health Status ASA Pre-Surgery Classification: ASA3 Proposed Anesthetic Plan: MAC - Pulmonary Hx Asthma: No COPD: Yes Hx Pneumonia: No - Cardiovascular System Hx Hypertension: Yes Hx Coronary Artery Disease: Yes Hx Percutaneous Transluminal Coronary Angioplasty (PTCA): Yes - Central Nervous System CVA: Yes - Endocrine Hx End Stage Renal Disease: No
--- NOTE | 2017-03-17 08:46 | Anesthesia Day of Surgery ---
Anesthesia Day of Surgery - Day of Surgery Patient Examined: Yes Patient H&P Reviewed: Yes Patient is NPO: Yes
[2017-03-17] MEDS ORDERED: DIPRIVAN 10 MG/ML IV ONE ×2 (09:18→09:19)
[2017-03-17] MEDS: LOPRESSOR PO SCH (10:00)
[2017-03-17] MEDS: PROTONIX PO SCH (10:00)
[2017-03-17] MEDS ORDERED: NACL 0.9% 1000 ML 1,000 ML IV SCH (10:00)
[2017-03-17] MEDS: BABY ASPIRIN PO SCH (10:00)
--- NOTE | 2017-03-17 10:01 | Operative Report ---
Operative Report Operative Report: Date of procedure: 03/17/2017 Preprocedure diagnosis: Anemia with falling hematocrit on Plavix over the past 3 weeks Post procedure diagnosis: Status post partial right hemicolectomy. Normal colon and distal terminal ileum. Procedure: Colonoscopy to the anastomosis and distal terminal ileum Endoscopist: Dr. Nicholson Anesthesia: Monitored anesthesia care per anesthesia department Estimated blood loss: 0 Medications: Monitored anesthesia care. See separate report by anesthesia for details. After careful discussion of the nature and purpose of the procedure as well as details of the technique risks benefits and alternatives the patient gave consent. Please see recent history and physical from the office. The patient was placed in the left lateral decubitus position and medicated per anesthesia. A rectal exam was performed sphincter tone was normal there were no masses palpable. The QuadROI 570 scope was passed transanally and advanced under continuous direct vision without difficulty to the end of the colon, an apparent anastomosis at the ileum and ascending colon. Anastomosis was unremarkable. The colon was well prepared. The cecum appeared to be surgically absent. The scope was advanced through the anastomosis approximately 20 cm into the distal ileum which appeared normal. The ascending colon was normal and on forward and retroflexed views. The transverse colon, descending colon, and sigmoid colon were normal. The rectum was normal on forward and retroflexed views. The procedure was well-tolerated overall and the patient was observed in recovery. Conclusions: Normal colonoscopy to the ileocolonic anastomosis and beyond. Normal distal terminal ileum and colon. Anastomosis in ascending colon. Plan: Restart Plavix tomorrow. Outpatient PillCam study. Advance diet. Okay to be discharged GI stinson today. Signed electronically: pEi Nicholson M.D.
[2017-03-17 10:37] VITALS: BP 130/67
--- NOTE | 2017-03-17 11:26 | Discharge Summary ---
Providers - Providers Date of Admission: 03/11/17 15:27 Date of discharge: 03/17/17 Attending physician: DOUGLAS MEJÍA 03/12/17 07:56 Consult to Physician [CONS] Routine Consulting Provider: ESTEFANÍA CLEARY Reason For Exam: Anemia OB + Place consult to:: Dr. Cleary Notified:: Asuncion FERGUSON Phone number called:: Was contact made?: Yes If yes, spoke with:: Mikael-answering service Time called:: 08:39 03/12/17 14:24 Consult to Physician [CONS] Routine Consulting Provider: RAMON JAVED Reason For Exam: chest pain Notified:: Asuncion FERGUSONsocial worker palliative care physician: CHARGE AIDE Hospitalization Condition: Stable Hospital course: This is a 62-year-old female the past medical history of CAD with stent placement, brain aneurysm, hypertension, and dementia presents to the hospital complaints of chest pain and near syncopal episode. She was admitted for further evaluation and management. She was evaluated by GI and cardiology. s/o EGD and colonoscopy during this admission. She will resume her aspirin and plavix from tomorrow and will f/u with GI and chaplain as outpt. She was cleared for discharge by cardiology. Discharge diagnosis and management: /Severe blood loss anemia due duedenal ulcer and AVM Hb was 6.2 on admission, transfused 2 units on 03/11/17 consulted GI, s/p EGD 03/15/17 EGD showed AVM in the duodenal bulb, status post cautery for ablation. There is a Tiny linear ulcer in the antrum with benign features and no stigmata of recent bleeding. Colonoscopy today was unremarkable GI recommended to cont ppi and resume plavix form tomorrow /Chest pain, likely due to demand ischemia from severe anemia transfused 2 unit of PRBC on 03/11/17 Patient is s/p Cardiac cath showed 100% oclusion of the mid RCA, and RCA Stent within prior PCI with drug eluting stent placement during last admission on Monitor at telemetry, Continue on beta blockers, statin, cont Supplemental oxygen, Echocardiogram during last visit was ef 55%-60% Consulted cardiology, on hold Aspirin, Plavix for EGD/colonoscopy, can be started from tomorrow /Near stncope Most likely due to volume depletion from severe anemia CT of the head showed no acute process. Frequent neuro checks Negative carotid doppler IV fluid hydration Monitor Orthostatic blood pressure /Hypothyroidism Continue oral synthroid /CAD (coronary artery disease) with recent STEMI low cholesterol diet, cont statin resume plavix and aspirin from tomorrow / h/o Tobacco abuse smoking cessation counseling done. Patient strongly advised to quit. /DVT prophylaxis scd Radiological data: Stress test Carotid Doppler CT head Hospitalist Physical exam: GENERAL: well-developed and well-nourished AAF lying on bed appeared to be in no discomfort. HEENT: Normocephalic. Atraumatic. No conjunctival congestion or icterus. Patient has moist mucous membranes. NECK: Supple. Trachea midline. CHEST/LUNGS: Clear to auscultated bilaterally, breathing nonlabored. No wheezes crackles or rhonchi. HEART/CARDIOVASCULAR: Regular in rate and rhythm. S1 and S2 positive. ABDOMEN: Abdomen is soft, nontender. Patient has normal bowel sounds. SKIN: There is no rash. Warm and dry. NEURO: No focal motor deficit. Follows command. MUSCULOSKELETAL: No joint effusion or tenderness. EXTRIMITY: No edema, no cyanosis or clubbing. PSYCH: Cooperative. Disposition: DC-01 TO HOME OR SELFCARE Time spent for discharge: 32 minutes Core Measure Documentation - Palliative Care Palliative Care/ Comfort Measures: Not Applicable - Core Measures Any of the following diagnoses?: none Exam - Constitutional Vitals: Temp Pulse Resp BP Pulse Ox 98.6 F 60 12 130/67 98 03/17/17 10:00 03/17/17 10:36 03/17/17 10:36 03/17/17 10:36 03/17/17 10:36 Plan Activity: advance as tolerated Weight Bearing Status: Weight Bear as Tolerated Diet: low fat, low salt Additional Instructions: Resume aspirin and plavix from tomorrow. repeat CBc and BMP in one week Follow up with: PRIMARY CARE,MD [Primary Care Provider] - 7 Days Prescriptions: Metoprolol [Lopressor TAB] 25 mg PO BID 30 Days tablet Pantoprazole [Protonix TAB] 40 mg PO BID #60 tablet
[2017-03-18] MEDS ORDERED: PLAVIX PO SCH (10:00)
--- NOTE | 2017-03-30 14:31 | Query- Nutrition ---
Deaalo Yung Sona Date: 03/30/17 Electrical Power Engineer/CDS: Huber Phone#:[phone] Exercise your independent professional judgment when responding to query. Questions asked do not imply a particular answer is desired or expected. We greatly appreciate your clarification on this issue. Clinical Documentation States: 62 year old female was admitted on 03/11/17 The discharge summary (Dr. Magallanes) states " This is a 62-year-old female the past medical history of CAD with stent placement, brain aneurysm, hypertension, and dementia presents to the hospital complaints of chest pain and near syncopal episode. " Clinical Findings Show: Albumin: 3.4 Please select the most appropriate option 3 [x] Mild Malnutrition [] Mild - Moderate Malnutrition [] Moderate - Severe Malnutrition [] Severe Malnutrition Serum Albumin 2.8 to 3.4 g/dl or Pre-albumin 5 to 17 mg/dl1,2 Inadequate nutritional intake1,2,3,4 NPO > 5 days Weight loss: 5% in 1 month or 7.5% in 3 months or 10% in 6 months1, 3,4 BMI 16 to 18.4 or Weight <90% of ideal body weight1,2,3,4 Serum Albumin < 2.8 g/ dl1,2 Lymphocytes < 1500/ L2 Inadequate nutritional intake3, high stress e.g. major trauma, sepsis,pancreatitis, lehman etc. Decubitus ulcers1,2, , skin breakdown2, easy hair pluckability2 Weight <80% standard for height2 Triceps skin fold <3 mm2 Mid-arm muscle circumference <15 cm2 Creatinine-height index <60% standard2 [ ] Cachexia [ ] Emaciated w/Malnutrition [ ] Other: [ ] Unable to determine [ ] Comment/Explanation: Present on Admission: [ x] Yes (Y) [ ] Clinically undeterminable (W) [ ] No (N) Please also document response in your Progress Notes and/or Discharge Summary and indicate if the condition was present on admission. MTDD
== END 2017-03-17 15:36 | disposition home or self-care (01) | DRG 378 ==
LOC: ED 11:17 → 4A 15:27
PROVIDERS: ADMIT Internal Medicine; ATTEND Internal Medicine
PROC: 30233N1 Transfusion of Nonautologous Red Blood Cells into Peripheral Vein, Percutaneous Approach (ICD-10-PCS; 2017-03-11)
PROC: 0W3P8ZZ Control Bleeding in Gastrointestinal Tract, Via Natural or Artificial Opening Endoscopic (ICD-10-PCS; principal; 2017-03-15)
PROC: 0DB68ZX Excision of Stomach, Via Natural or Artificial Opening Endoscopic, Diagnostic (ICD-10-PCS; 2017-03-15)
PROC: 0DJD8ZZ Inspection of Lower Intestinal Tract, Via Natural or Artificial Opening Endoscopic (ICD-10-PCS; 2017-03-17)
DX: K31.811 Angiodysplasia of stomach and duodenum with bleeding (principal); E44.1 Mild protein-calorie malnutrition; K26.4 Chronic or unspecified duodenal ulcer with hemorrhage; K25.4 Chronic or unspecified gastric ulcer with hemorrhage; I25.10 Atherosclerotic heart disease of native coronary artery without angina pectoris; E03.9 Hypothyroidism, unspecified; R19.5 Other fecal abnormalities; I10 Essential (primary) hypertension; F03.90 Unspecified dementia, unspecified severity, without behavioral disturbance, psychotic disturbance, mood disturbance, and anxiety; K21.9 Gastro-esophageal reflux disease without esophagitis; F17.200 Nicotine dependence, unspecified, uncomplicated; Z88.1 Allergy status to other antibiotic agents; Z79.82 Long term (current) use of aspirin; Z79.899 Other long term (current) drug therapy; Z82.49 Family history of ischemic heart disease and other diseases of the circulatory system; Z95.5 Presence of coronary angioplasty implant and graft; Z86.73 Personal history of transient ischemic attack (TIA), and cerebral infarction without residual deficits; D50.0 Iron deficiency anemia secondary to blood loss (chronic); Z68.28 Body mass index [BMI] 28.0-28.9, adult
CPT/HCPCS: 36415; 36430; 70450; 78452; 80048; 80053; 80307; 80320; 81001; 82140; 82550; 82553; 82607; 82747; 82962; 83036; 83550; 83735; 84443; 84484; 85014; 85018; 85025; 85027; 85610; 85730; 86850; 86900; 86901; 86920; 88305; 88342; 93005; 93010; 93017; 93880; A9270-GY; A9502; G0480; J2405; J2704; J2785; J7030; J7040; P9016

== ENCOUNTER 2017-04-07 14:39 | Inpatient (IN) | payer MEDICARE ==
[2017-04-07 17:43] LABS: Basophils # (Auto) 0.1 K/mm3 (0.0-0.1); Basophils % (Auto) 0.9 % (0.0-1.8); Eosinophils # (Auto) 0.1 K/mm3 (0.0-0.4); Eosinophils % (Auto) 1.1 % (0.0-4.3); Hematocrit 22.8 % (30.3-42.9); Hemoglobin 6.9 gm/dl (10.1-14.3); Lymphocytes # (Auto) 1.5 K/mm3 (1.2-5.4); Lymphocytes % (Auto) 22.2 % (13.4-35.0); Mean Corpuscular HGB Conc 31 % (30-34); Mean Corpuscular Volume 81 fl (79-97); Monocytes # (Auto) 0.6 K/mm3 (0.0-0.8); Monocytes % (Auto) 8.2 % (0.0-7.3); Platelet Count 334 K/mm3 (140-440)
[2017-04-07 17:46] LABS: Mean Corpuscular Hemoglobin 25 pg (28-32); Red Cell Distribution Width 20.4 % (13.2-15.2)
[2017-04-07 17:48] LABS: Alanine Aminotransferase 15 units/L (7-56); Albumin 4.2 g/dL (3.9-5); BUN/Creatinine Ratio 19; Blood Urea Nitrogen 17 mg/dL (7-17); Calcium 9.6 mg/dL (8.4-10.2); Hemolysis Index 15
[2017-04-08] MEDS ORDERED: NACL 0.9% 500 ML 500 ML IV ONE ×3 (00:32→17:00)
--- NOTE | 2017-04-08 01:29 | Emergency Department Report ---
ED General Adult HPI - General Chief complaint: Weakness Stated complaint: BLOOD TRANSFUSION Time Seen by Provider: 04/07/17 23:53 Source: patient, family Mode of arrival: Wheelchair Limitations: No Limitations - History of Present Illness Initial comments: Patient is a 62-year-old [place] female who is presenting with generalized weakness for unknown period of time. Patient is a poor historian and does have some early onset dementia. Patient is presenting needing a blood transfusion. Patient was seen at outside facility had blood drawn that showed that her hemoglobin was 6.3. Patient has no complaints of abdominal pain or blood in her stool. Patient states she has not had a menses in multiple years. Patient just states that she has weakness but is unable secondary to her early dementia to give further history. Patient also has a history of COPD dementia and hypertension - Related Data Previous Rx's Medication Instructions Recorded Last Taken Type Aspirin [Aspirin BABY CHEW TAB] 81 mg PO QDAY 30 Days tab.chew 02/15/17 Unknown Rx AtorvaSTATin [Lipitor] 40 mg PO QHS #30 tablet 02/15/17 Unknown Rx Clopidogrel [Plavix] 75 mg PO QDAY 30 Days tablet 02/15/17 Unknown Rx ISOSORBIDE MONOnitrate [Imdur ER] 30 mg PO QDAY 30 Days tablet 02/15/17 Unknown Rx Levothyroxine [Synthroid] 100 mcg PO DAILY@0600 30 Days 02/15/17 Unknown Rx tablet Metoprolol [Lopressor TAB] 25 mg PO BID 30 Days tablet 03/17/17 Unknown Rx Pantoprazole [Protonix TAB] 40 mg PO BID #60 tablet 03/17/17 Unknown Rx Allergies Allergy/AdvReac Type Severity Reaction Status Date / Time tetracycline Allergy Unknown Unknown Verified 02/12/17 14:41 ED Review of Systems ROS: Stated complaint: BLOOD TRANSFUSION Other details as noted in HPI Comment: Unobtainable due to pts medical conditions ED Past Medical Hx - Past Medical History Hx Hypertension: Yes Hx CVA: No Hx Congestive Heart Failure: No Hx Diabetes: No Hx Arthritis: No Hx Asthma: No Hx COPD: Yes Hx Dementia: Yes Additional medical history: brain anuerysm. Stents - Surgical History Additional Surgical History: 2 stents placed - Social History Smoking Status: Former Smoker Substance Use Type: None - Medications Home Medications: Home Medications Medication Instructions Recorded Confirmed Last Taken Type Aspirin [Aspirin BABY CHEW TAB] 81 mg PO QDAY 30 Days tab.chew 02/15/17 Unknown Rx AtorvaSTATin [Lipitor] 40 mg PO QHS #30 tablet 02/15/17 03/13/17 Unknown Rx Clopidogrel [Plavix] 75 mg PO QDAY 30 Days tablet 02/15/17 03/13/17 Unknown Rx ISOSORBIDE MONOnitrate [Imdur ER] 30 mg PO QDAY 30 Days tablet 02/15/17 Unknown Rx Levothyroxine [Synthroid] 100 mcg PO DAILY@0600 30 Days 02/15/17 03/13/17 Unknown Rx tablet Metoprolol [Lopressor TAB] 25 mg PO BID 30 Days tablet 03/17/17 Unknown Rx Pantoprazole [Protonix TAB] 40 mg PO BID #60 tablet 03/17/17 Unknown Rx ED Physical Exam - General Limitations: No Limitations General appearance: alert, in no apparent distress - Head Head exam: Present: atraumatic, normocephalic - Eye Eye exam: Present: normal appearance - ENT ENT exam: Present: mucous membranes moist - Neck Neck exam: Present: normal inspection - Respiratory Respiratory exam: Present: normal lung sounds bilaterally. Absent: respiratory distress - Cardiovascular Cardiovascular Exam: Present: regular rate, normal rhythm. Absent: systolic murmur, diastolic murmur, rubs, gallop - GI/Abdominal GI/Abdominal exam: Present: soft, normal bowel sounds - Rectal Rectal exam: Present: normal inspection, heme (+) stool. Absent: black stool, bloody stool - Extremities Exam Extremities exam: Present: normal inspection - Back Exam Back exam: Present: normal inspection - Neurological Exam Neurological exam: Present: alert, oriented X3 - Psychiatric Psychiatric exam: Present: normal affect, normal mood - Skin Skin exam: Present: warm, dry, intact, normal color. Absent: rash ED Course Vital Signs 04/07/17 16:40 Temperature 98.7 F Pulse Rate 68 Respiratory 16 Rate Blood Pressure 127/63 O2 Sat by Pulse 99 Oximetry ED Medical Decision Making - Lab Data Result diagrams: 04/07/17 16:58 04/07/17 16:58 - Medical Decision Making Patient is a 62-year-old female who is presenting with a GI bleed. Patient will be typed and screened and receive packed red blood cells. Patient be admitted at this time to Dr. Sanchez. Critical care time in (mins) excluding proc time.: 30 Critical care attestation.: If time is entered above; I have spent that time in minutes in the direct care of this critically ill patient, excluding procedure time. ED Disposition Clinical Impression: Symptomatic anemia, Iron deficiency, GI bleed Disposition: OP ADMIT IP TO THIS HOSP Is pt being admited?: Yes Does the pt Need Aspirin: No Condition: Stable Referrals: OCTAVIA PATEL MD [Primary Care Provider] - 3-5 Days
--- NOTE | 2017-04-08 02:58 | Event Note ---
Date: 04/08/17 See dictated H&P in reports Acute blood loss anemia GI bleed
[2017-04-08] MEDS: PROTONIX IV SCH ×2 (03:27→14:08)
--- NOTE | 2017-04-08 09:22 | History and Physical Report ---
History of Present Illness Date of examination: 04/08/17 Date of admission: 04/08/17 01:30 Chief complaint: Gen weakness Fotr 1 week History of present illness: History of Present Illness Patient is a 62-year-old [place] female who is presenting with generalized weakness for unknown period of time. Patient is a poor historian and does have some early onset dementia. Patient is presenting needing a blood transfusion. Patient was seen at outside facility had blood drawn that showed that her hemoglobin was 6.3. Patient has no complaints of abdominal pain or blood in her stool. Patient states she has not had a menses in multiple years. Patient just states that she has weakness but is unable secondary to her early dementia to give further history. Patient also has a history of COPD dementia and hypertension Past Medical History Hx Hypertension: Yes Hx COPD: Yes Hx Dementia: Yes Additional medical history: brain anuerysm. Stents Surgical History Additional Surgical History: 2 stents placed Social History Smoking Status: Former Smoker Substance Use Type: None Medications Home Medications: Home Medications Medication Instructions Recorded Confirmed Last Taken Type Aspirin [Aspirin BABY CHEW TAB] 81 mg PO QDAY 30 Days tab.chew 02/15/17 Unknown Rx AtorvaSTATin [Lipitor] 40 mg PO QHS #30 tablet 02/15/17 03/13/17 Unknown Rx Clopidogrel [Plavix] 75 mg PO QDAY 30 Days tablet 02/15/17 03/13/17 Unknown Rx ISOSORBIDE MONOnitrate [Imdur ER] 30 mg PO QDAY 30 Days tablet 02/15/17 Unknown Rx Levothyroxine [Synthroid] 100 mcg PO DAILY@0600 30 Days 02/15/17 03/13/17 Unknown Rx tablet Metoprolol [Lopressor TAB] 25 mg PO BID 30 Days tablet 03/17/17 Unknown Rx Pantoprazole [Protonix TAB] 40 mg PO BID #60 tablet 03/17/17 Unknown Rx Review of Systems ROS: Stated complaint: BLOOD TRANSFUSION Other details as noted in HPI Comment: Unobtainable due to pts medical conditions Medications and Allergies Allergies Allergy/AdvReac Type Severity Reaction Status Date / Time tetracycline Allergy Unknown Unknown Verified 02/12/17 14:41 Home Medications Medication Instructions Recorded Confirmed Last Taken Type Aspirin [Aspirin BABY CHEW TAB] 81 mg PO QDAY 30 Days tab.chew 02/15/17 Unknown Rx AtorvaSTATin [Lipitor] 40 mg PO QHS #30 tablet 02/15/17 03/13/17 Unknown Rx Clopidogrel [Plavix] 75 mg PO QDAY 30 Days tablet 02/15/17 03/13/17 Unknown Rx ISOSORBIDE MONOnitrate [Imdur ER] 30 mg PO QDAY 30 Days tablet 02/15/17 Unknown Rx Levothyroxine [Synthroid] 100 mcg PO DAILY@0600 30 Days 02/15/17 03/13/17 Unknown Rx tablet Metoprolol [Lopressor TAB] 25 mg PO BID 30 Days tablet 03/17/17 Unknown Rx Pantoprazole [Protonix TAB] 40 mg PO BID #60 tablet 03/17/17 Unknown Rx Active Meds: Active Medications Influenza Virus Vaccine Quadrival (Fluarix Quad [id number](36 Mos+) 0.5 ml IM .ONCE ONE Stop: 04/09/17 12:01 Pantoprazole Sodium (Protonix) 40 mg IV BID@0300,1500 ODALIS Last Admin: 04/08/17 03:27 Dose: 40 mg Exam - Constitutional Vitals: Temp Pulse Resp BP Pulse Ox 98.5 F 71 17 127/55 100 04/08/17 03:10 04/08/17 06:07 04/08/17 06:09 04/08/17 07:50 04/08/17 07:50 General appearance: Present: no acute distress, well-nourished - EENT Eyes: Present: PERRL ENT: hearing intact, clear oral mucosa - Neck Neck: Present: supple, normal ROM - Respiratory Respiratory effort: normal Respiratory: bilateral: CTA - Cardiovascular Heart Sounds: Present: S1 & S2. Absent: rub, click - Extremities Extremities: pulses symmetrical, No edema Peripheral Pulses: within normal limits - Abdominal General gastrointestinal: Present: soft, non-tender, non-distended, normal bowel sounds Female genitourinary: Present: normal - Integumentary Integumentary: Present: clear, warm, dry - Musculoskeletal Musculoskeletal: gait normal, strength equal bilaterally - Psychiatric Psychiatric: appropriate mood/affect, intact judgment & insight - Neurologic Neurologic: CNII-XII intact, moves all extremities Results - Labs CBC & Chem 7: 04/07/17 16:58 04/07/17 16:58 Labs: Laboratory Last Values WBC 6.8 K/mm3 (4.5-11.0) 04/07/17 16:58 RBC 2.80 M/mm3 (3.65-5.03) L 04/07/17 16:58 Hgb 6.9 gm/dl (10.1-14.3) L 04/07/17 16:58 Hct 22.8 % (30.3-42.9) L 04/07/17 16:58 MCV 81 fl (79-97) 04/07/17 16:58 MCH 25 pg (28-32) L 04/07/17 16:58 MCHC 31 % (30-34) 04/07/17 16:58 RDW 20.4 % (13.2-15.2) H 04/07/17 16:58 Plt Count 334 K/mm3 (140-440) 04/07/17 16:58 Lymph % (Auto) 22.2 % (13.4-35.0) 04/07/17 16:58 [place] % (Auto) 8.2 % (0.0-7.3) H 04/07/17 16:58 Eos % (Auto) 1.1 % (0.0-4.3) 04/07/17 16:58 Baso % (Auto) 0.9 % (0.0-1.8) 04/07/17 16:58 Lymph # 1.5 K/mm3 (1.2-5.4) 04/07/17 16:58 [place] # 0.6 K/mm3 (0.0-0.8) 04/07/17 16:58 Eos # 0.1 K/mm3 (0.0-0.4) 04/07/17 16:58 Baso # 0.1 K/mm3 (0.0-0.1) 04/07/17 16:58 Seg Neutrophils % 67.6 % (40.0-70.0) 04/07/17 16:58 Seg Neutrophils # 4.6 K/mm3 (1.8-7.7) 04/07/17 16:58 Sodium 143 mmol/L (137-145) 04/07/17 16:58 Potassium 4.6 mmol/L (3.6-5.0) 04/07/17 16:58 Chloride 105.1 mmol/L (98-107) 04/07/17 16:58 Carbon Dioxide 17 mmol/L (22-30) L 04/07/17 16:58 Anion Gap 26 mmol/L 04/07/17 16:58 BUN 17 mg/dL (7-17) 04/07/17 16:58 Creatinine 0.9 mg/dL (0.7-1.2) 04/07/17 16:58 Estimated GFR > 60 ml/min 04/07/17 16:58 BUN/Creatinine Ratio 19 % 04/07/17 16:58 Glucose 97 mg/dL (65-100) 04/07/17 16:58 Calcium 9.6 mg/dL (8.4-10.2) 04/07/17 16:58 Total Bilirubin 0.50 mg/dL (0.1-1.2) 04/07/17 16:58 AST 15 units/L (5-40) 04/07/17 16:58 ALT 15 units/L (7-56) 04/07/17 16:58 Alkaline Phosphatase 99 units/L (35-129) 04/07/17 16:58 Total Protein 6.9 g/dL (6.3-8.2) 04/07/17 16:58 Albumin 4.2 g/dL (3.9-5) 04/07/17 16:58 Albumin/Globulin Ratio 1.6 % 04/07/17 16:58 Blood Type A POSITIVE 04/07/17 16:58 Antibody Screen Negative 04/07/17 16:58 Crossmatch See Detail 04/07/17 16:58 - Imaging and Cardiology EKG: report reviewed Chest x-ray: report reviewed Assessment and Plan Advance Directives: Yes (Full code) VTE prophylaxis?: Chemical Plan of care discussed with patient/family: Yes - Patient Problems (1) Symptomatic anemia Current Visit: Yes Status: Acute Plan to address problem: Transfuse one unit of Prbc Anemia w/u. Check Iron/Folic/B12 levels (2) GI bleed Current Visit: Yes Status: Acute Qualifiers: GI bleed type/associated pathology: unspecified gastrointestinal hemorrhage type Qualified Code(s): K92.2 - Gastrointestinal hemorrhage, unspecified Plan to address problem: IV Protonix GI eval (3) CAD (coronary artery disease) Current Visit: No Status: Chronic Qualifiers: Coronary Disease-Associated Artery/Lesion type: [place] artery [place] vs. transplanted heart: [place] heart Plan to address problem: Hold Plavix and cont Isosorbide Mononitrate (4) Coronary angioplasty status Current Visit: No Status: Chronic Plan to address problem: Had stents in past (5) Hypothyroidism (acquired) Current Visit: Yes Status: Chronic Plan to address problem: Cont Synthyroid 100 mcg po qd (6) HTN (hypertension) Current Visit: Yes Status: Chronic Qualifiers: Hypertension type: essential hypertension Qualified Code(s): I10 - Essential (primary) hypertension Plan to address problem: Cont Metoprolol (7) HLD (hyperlipidemia) Current Visit: Yes Status: Chronic Qualifiers: Hyperlipidemia type: mixed hyperlipidemia Qualified Code(s): E78.2 - Mixed hyperlipidemia Plan to address problem: Cont statins (8) DVT prophylaxis Current Visit: No Status: Acute Plan to address problem: Only SCD's for now
[2017-04-08] MEDS ORDERED: MORPHINE IV PRN (10:53)
[2017-04-08] MEDS ORDERED: MILK OF MAGNESIA PO PRN (10:53)
[2017-04-08] MEDS ORDERED: TYLENOL PO PRN (10:53)
[2017-04-08] MEDS ORDERED: ZOFRAN IV PRN (10:53)
[2017-04-08] MEDS ORDERED: DULCOLAX PR PRN (10:53)
[2017-04-08] MEDS: D5NS 1,000 ML IV SCH (11:16)
--- NOTE | 2017-04-08 12:43 | Gastroenterology Consultation ---
History of Present Illness - Reason for Consult Consult date: 04/08/17 anemia Requesting physician: YAMILA MCGILL - History of Present Illness The patient is a 62 year old female known to me from the last admission now with GI consultation requested for recurrent anemia. The patient was on Plavix for a recent STEMI and placement of drug eluting stents as well as cerebrovascular disease and multiple prior CVAs. 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 Colonoscopy revealed a right hemicolectomy and diverticulosis. She was recommended to go on iron therapy and have an outpatient pill camera study. She had not yet returned to the office. Routine labs revealed a Hgb of 6.3 and the patient was told to go to the hospital. She has had no BRBPR, melena, n/v or hematemesis. 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) Social history: , lives with family Family history: no significant family history Medications and Allergies Allergies Allergy/AdvReac Type Severity Reaction Status Date / Time tetracycline Allergy Unknown Unknown Verified 02/12/17 14:41 Home Medications Medication Instructions Recorded Confirmed Last Taken Type Aspirin [Aspirin BABY CHEW TAB] 81 mg PO QDAY 30 Days tab.chew 02/15/17 Unknown Rx AtorvaSTATin [Lipitor] 40 mg PO QHS #30 tablet 02/15/17 03/13/17 Unknown Rx Clopidogrel [Plavix] 75 mg PO QDAY 30 Days tablet 02/15/17 03/13/17 Unknown Rx ISOSORBIDE MONOnitrate [Imdur ER] 30 mg PO QDAY 30 Days tablet 02/15/17 Unknown Rx Levothyroxine [Synthroid] 100 mcg PO DAILY@0600 30 Days 02/15/17 03/13/17 Unknown Rx tablet Metoprolol [Lopressor TAB] 25 mg PO BID 30 Days tablet 03/17/17 Unknown Rx Pantoprazole [Protonix TAB] 40 mg PO BID #60 tablet 03/17/17 Unknown Rx Active Meds: Active Medications Acetaminophen (Tylenol) 650 mg PO Q4H PRN PRN Reason: Pain MILD(1-3)/Fever >100.5/BRAND Bisacodyl (Dulcolax) 10 mg AR QDAY PRN PRN Reason: Constipation unrelieved by MOM Dextrose/Sodium Chloride (D5ns) 1,000 mls @ 100 mls/hr IV DIRECT ON LICENSE OF [facility] Last Admin: 04/08/17 11:16 Dose: 100 mls/hr Influenza Virus Vaccine Quadrival (Fluarix Quad [id number](36 Mos+) 0.5 ml IM .ONCE ONE Stop: 04/09/17 12:01 Isosorbide Mononitrate (Imdur) 30 mg PO QDAY ON LICENSE OF [facility] Levothyroxine Sodium (Synthroid) 100 mcg PO DAILY@0600 ON LICENSE OF [facility] Magnesium Hydroxide (Milk Of Magnesia) 30 ml PO Q4H PRN PRN Reason: Constipation Metoprolol Tartrate (Lopressor) 25 mg PO BID ON LICENSE OF [facility] Morphine Sulfate (Morphine) 2 mg IV Q4H PRN PRN Reason: Pain, Moderate (4-6) Ondansetron HCl (Zofran) 4 mg IV Q8H PRN PRN Reason: N/V unrelieved by Reglan Pantoprazole Sodium (Protonix) 40 mg IV BID@0300,1500 ON LICENSE OF [facility] Last Admin: 04/08/17 03:27 Dose: 40 mg Review of Systems - Review of Systems ROS unobtainable: due to mental status Exam - Constitutional Vital Signs: Temp Pulse Resp BP Pulse Ox 98.5 F 71 17 127/55 100 04/08/17 03:10 04/08/17 06:07 04/08/17 06:09 04/08/17 07:50 04/08/17 07:50 General appearance: no acute distress, well-nourished - EENT Eyes: PERRL ENT: hearing intact, clear oral mucosa, dentition normal - Neck Neck: supple, normal ROM, no masses or JVD - Respiratory Respiratory effort: normal Respiratory: bilateral: CTA - Breasts Breasts: deferred - Cardiovascular Rhythm: regular Heart Sounds: Present: S1 & S2. Absent: gallop, rub Extremities: pulses intact, No edema, normal color, Full ROM - Gastrointestinal General gastrointestinal: Present: soft, non-tender, non-distended, normal bowel sounds. Absent: hepatomegaly, splenomegaly, mass Rectal Exam: deferred - Genitourinary Female Genitourinary: deferred - Integumentary Integumentary: Present: clear, warm, dry - Neurologic Neurological: oriented to person, right side weakness - Psychiatric Psychiatric: no intact judgment & insight, no memory intact, cooperative - Labs CBC & Chem 7: 04/07/17 16:58 04/07/17 16:58 Lab Results: Laboratory Results - last 24 hr 04/07/17 04/07/17 04/07/17 16:58 16:58 16:58 WBC 6.8 RBC 2.80 L Hgb 6.9 L Hct 22.8 L MCV 81 MCH 25 L MCHC 31 RDW 20.4 H Plt Count 334 Lymph % (Auto) 22.2 [place] % (Auto) 8.2 H Eos % (Auto) 1.1 Baso % (Auto) 0.9 Lymph # 1.5 [place] # 0.6 Eos # 0.1 Baso # 0.1 Seg Neutrophils % 67.6 Seg Neutrophils # 4.6 Sodium 143 Potassium 4.6 Chloride 105.1 Carbon Dioxide 17 L Anion Gap 26 BUN 17 Creatinine 0.9 Estimated GFR > 60 BUN/Creatinine Ratio 19 Glucose 97 Calcium 9.6 Total Bilirubin 0.50 AST 15 ALT 15 Alkaline Phosphatase 99 Total Protein 6.9 Albumin 4.2 Albumin/Globulin Ratio 1.6 Blood Type A POSITIVE Antibody Screen Negative Crossmatch See Detail Assessment and Plan - Patient Problems (1) Dementia Current Visit: Yes Status: Acute (2) Symptomatic anemia Current Visit: Yes Status: Acute Plan to address problem: Patient has had recent work up revealing an AVM in the duodenum and likely has more AVMs in the gut explaining her chronic blood loss. Colonoscopy performed a month ago during the same admission revealed no sources of blood loss. Needs oupatient pill camera study and ongoing iron repletion. Would consider IV iron labs are diagnostic in addition to supportive transfusions. No need to repeat EGD or colonoscopy. OK to advance diet. (3) HTN (hypertension) Current Visit: Yes Status: Chronic Qualifiers: Hypertension type: essential hypertension Qualified Code(s): I10 - Essential (primary) hypertension (4) Hypothyroidism (acquired) Current Visit: Yes Status: Chronic (5) Stented coronary artery Current Visit: No Status: Acute (6) CAD (coronary artery disease) Current Visit: No Status: Chronic Qualifiers: Coronary Disease-Associated Artery/Lesion type: [place] artery [place] vs. transplanted heart: [place] heart
--- NOTE | 2017-04-08 13:16 | Event Note ---
Date: 04/08/17 Brief progress note Patient was seen and examined Patient had a full history and physical earlier this morning GI note reviewed and appreciated History of rectal bleed for 3 days She states she moved from [place] 3 days ago Awaiting blood transfusion Monitor H&H Had a complete GI workup recently No plans for EGD or colonoscopy at this time
[2017-04-08 14:07] LABS: % Iron Saturation 43.05 %
[2017-04-08] MEDS: LOPRESSOR PO SCH (23:56)
[2017-04-09] MEDS: D5NS 1,000 ML IV SCH ×2 (01:46→11:34)
[2017-04-09] MEDS: PROTONIX IV SCH (03:35)
[2017-04-09] MEDS: SYNTHROID PO SCH (07:12)
[2017-04-09 09:15] LABS: Basophils % (Auto) 0.6 % (0.0-1.8); Eosinophils # (Auto) 0.2 K/mm3 (0.0-0.4); Eosinophils % (Auto) 2.5 % (0.0-4.3); Hematocrit 29.7 % (30.3-42.9); Hemoglobin 9.2 gm/dl (10.1-14.3); Lymphocytes # (Auto) 2.2 K/mm3 (1.2-5.4); Lymphocytes % (Auto) 28.1 % (13.4-35.0); Mean Corpuscular HGB Conc 31 % (30-34); Mean Corpuscular Hemoglobin 26 pg (28-32); Mean Corpuscular Volume 85 fl (79-97); Monocytes # (Auto) 0.8 K/mm3 (0.0-0.8); Monocytes % (Auto) 10.7 % (0.0-7.3); Platelet Count 261 K/mm3 (140-440); Red Blood Count 3.51 M/mm3 (3.65-5.03); Red Cell Distribution Width 19.3 % (13.2-15.2)
[2017-04-09 09:32] LABS: BUN/Creatinine Ratio 13; Blood Urea Nitrogen 9 mg/dL (7-17); Calcium 8.9 mg/dL (8.4-10.2); Hemolysis Index 6
[2017-04-09] MEDS: IMDUR PO SCH (09:38)
[2017-04-09] MEDS: LOPRESSOR PO SCH ×2 (09:39→23:59)
[2017-04-09] MEDS ORDERED: Fluarix Quad 2017-2018(36 MOS+ IM ONE (12:00)
--- NOTE | 2017-04-09 12:04 | Gastroenterology Progress Note ---
Assessment and Plan - Patient Problems (1) Dementia Current Visit: Yes Status: Acute (2) Symptomatic anemia Current Visit: Yes Status: Acute Plan to address problem: Anemia improved post transfusion. No need to repeat EGD and colonoscopy which were done in March 2017. Patient and previously advised last month and again yesterday to make f/u appointment for outpatient pill camera study. Will s/o and f/u at your request. thanks (3) HTN (hypertension) Current Visit: Yes Status: Chronic Qualifiers: Hypertension type: essential hypertension Qualified Code(s): I10 - Essential (primary) hypertension (4) Hypothyroidism (acquired) Current Visit: Yes Status: Chronic (5) Stented coronary artery Current Visit: No Status: Acute (6) CAD (coronary artery disease) Current Visit: No Status: Chronic Qualifiers: Coronary Disease-Associated Artery/Lesion type: [place] artery [place] vs. transplanted heart: [place] heart Subjective Date of service: 04/09/17 Principal diagnosis: anemia Interval history: Denies any symptoms Objective - Constitutional Vitals: Temp Pulse Resp BP Pulse Ox 97.9 F 57 L 20 122/62 98 04/09/17 07:56 04/09/17 07:56 04/09/17 07:56 04/09/17 07:56 04/09/17 07:56 General appearance: no acute distress - EENT ENT: hearing intact, clear oral mucosa, dentition normal - Respiratory Respiratory effort: normal Respiratory: bilateral: CTA - Cardiovascular Rhythm: regular - Gastrointestinal General gastrointestinal: Present: soft, non-tender, non-distended, normal bowel sounds - Neurologic Neurological: alert and oriented x3 - Labs CBC & Chem 7: 04/09/17 08:24 04/09/17 08:24 Labs: Laboratory Results - last 24 hr 04/07/17 04/08/17 04/08/17 16:58 12:58 12:58 WBC RBC Hgb Hct MCV MCH MCHC RDW Plt Count Lymph % (Auto) [place] % (Auto) Eos % (Auto) Baso % (Auto) Lymph # [place] # Eos # Baso # Seg Neutrophils % Seg Neutrophils # Sodium Potassium Chloride Carbon Dioxide Anion Gap BUN Creatinine Estimated GFR BUN/Creatinine Ratio Glucose Calcium Iron 161 TIBC 374 % Saturation 43.05 Transferrin 307 Vitamin B12 340.3 TSH Blood Type A POSITIVE Antibody Screen Negative Crossmatch See Detail 04/08/17 04/09/1704/09/18 12:58 08:24 08:24 WBC 7.7 RBC 3.51 L Hgb 9.2 L Hct 29.7 L D MCV 85 MCH 26 L MCHC 31 RDW 19.3 H Plt Count 261 Lymph % (Auto) 28.1 [place] % (Auto) 10.7 H Eos % (Auto) 2.5 Baso % (Auto) 0.6 Lymph # 2.2 [place] # 0.8 Eos # 0.2 Baso # 0.0 Seg Neutrophils % 58.1 Seg Neutrophils # 4.4 Sodium 143 Potassium 4.4 Chloride 108.4 H Carbon Dioxide 22 Anion Gap 17 BUN 9 Creatinine 0.7 Estimated GFR > 60 BUN/Creatinine Ratio 13 Glucose 99 Calcium 8.9 Iron TIBC % Saturation Transferrin Vitamin B12 TSH 0.019 L Blood Type Antibody Screen Crossmatch
--- NOTE | 2017-04-09 12:40 | Progress Note ---
Assessment and Plan Assessment and Plan Symptomatic anemia Current Visit: Yes Status: Acute Plan to address problem: Anemia improved post transfusion. No need to repeat EGD and colonoscopy per GI as it was done in March 2017. Patient and previously advised last month and again yesterday to make f/u appointment for outpatient pill camera study. HTN (hypertension) Current Visit: Yes Status: Chronic Qualifiers: Hypertension type: essential hypertension Qualified Code(s): I10 - Essential (primary) hypertension Well-controlled Continue present medications Hypothyroidism (acquired) Current Visit: Yes Status: Chronic Continue Synthroid Stented coronary artery Current Visit: No Status: Acute Continue Plavix CAD (coronary artery disease) Current Visit: No Status: Chronic Qualifiers: Coronary Disease-Associated Artery/Lesion type: [place] artery [place] vs. transplanted heart: [place] heart Possible discharge tomorrow if H&H is stable Subjective Date of service: 04/09/17 Principal diagnosis: anemia Interval history: Awake and alert No complaints Denies chest pain or shortness of breath Lab results reviewed GI note reviewed and appreciated Objective - Constitutional Vitals: Vital Signs - 12hr 04/09/17 07:56 Temperature 97.9 F Pulse Rate 57 L Respiratory 20 Rate Blood Pressure 122/62 O2 Sat by Pulse 98 Oximetry General appearance: Present: no acute distress - EENT Eyes: PERRL, EOM intact ENT: hearing intact, clear oral mucosa - Neck Neck: supple, normal ROM - Respiratory Respiratory effort: normal - Cardiovascular Rhythm: regular Heart Sounds: Present: S1 & S2 Extremities: No edema - Gastrointestinal General gastrointestinal: Present: soft, non-tender - Integumentary Integumentary: clear - Musculoskeletal Musculoskeletal: strength equal bilaterally - Neurologic Neurologic: no focal deficits - Labs CBC & Chem 7: 04/09/17 08:24 04/09/17 08:24 Labs: Abnormal lab results 04/07/17 04/08/17 04/09/17 Range/Units 16:58 12:58 08:24 RBC 3.51 L (3.65-5.03) M/mm3 Hgb 9.2 L (10.1-14.3) gm/dl Hct 29.7 L D (30.3-42.9) % MCH 26 L (28-32) pg RDW 19.3 H (13.2-15.2) % [place] % (Auto) 10.7 H (0.0-7.3) % Chloride (98-107) mmol/L TSH 0.019 L (0.270-4.200) mlU/mL Crossmatch See Detail 04/09/17 Range/Units 08:24 RBC (3.65-5.03) M/mm3 Hgb (10.1-14.3) gm/dl Hct (30.3-42.9) % MCH (28-32) pg RDW (13.2-15.2) % [place] % (Auto) (0.0-7.3) % Chloride 108.4 H (98-107) mmol/L TSH (0.270-4.200) mlU/mL Crossmatch
[2017-04-10] MEDS: SYNTHROID PO SCH (07:25)
[2017-04-10 07:33] LABS: Hematocrit 26.4 % (30.3-42.9); Hemoglobin 8.6 gm/dl (10.1-14.3)
[2017-04-10] MEDS: IMDUR PO SCH (10:36)
[2017-04-10] MEDS: PROTONIX PO SCH ×2 (10:37)
[2017-04-10] MEDS: LOPRESSOR PO SCH (10:38)
[2017-04-10 11:48] VITALS: BP 144/75
--- NOTE | 2017-04-10 11:56 | Progress Note ---
Assessment and Plan Discharge diagnosis and management: /Symptomatic anemia Anemia improved post transfusion. No need to repeat EGD and colonoscopy per GI as it was done in March 2017. Patient and previously advised last month and again yesterday to make f/u appointment for outpatient pill camera study. /HTN (hypertension) Well-controlled Continue present medications /Hypothyroidism (acquired) Continue Synthroid /CAD (coronary artery disease) Continue Plavix Subjective Date of service: 04/10/17 Principal diagnosis: anemia Objective - Exam Narrative Exam: General appearance: Present: no acute distress - EENT Eyes: PERRL, EOM intact ENT: hearing intact, clear oral mucosa - Neck Neck: supple, normal ROM - Respiratory Respiratory effort: normal - Cardiovascular Rhythm: regular Heart Sounds: Present: S1 & S2 Extremities: No edema - Gastrointestinal General gastrointestinal: Present: soft, non-tender - Integumentary Integumentary: clear - Musculoskeletal Musculoskeletal: strength equal bilaterally - Neurologic Neurologic: no focal deficits - Constitutional Vitals: Vital Signs - 12hr 04/09/17 04/10/17 04/10/17 23:59 00:07 05:03 Temperature 98.0 F 97.9 F Pulse Rate 71 71 82 Respiratory 17 17 Rate Blood Pressure 132/64 129/56 117/57 O2 Sat by Pulse 98 81 L Oximetry 04/10/17 04/10/17 08:20 11:20 Temperature 98.3 F 98.4 F Pulse Rate 65 57 L Respiratory 18 20 Rate Blood Pressure 105/49 144/75 O2 Sat by Pulse 97 98 Oximetry - Labs CBC & Chem 7: 04/10/17 07:00 04/09/17 08:24 Labs: Abnormal lab results 04/10/17 Range/Units 07:00 Hgb 8.6 L (10.1-14.3) gm/dl Hct 26.4 L (30.3-42.9) %
--- NOTE | 2017-04-10 11:58 | Discharge Summary ---
Providers - Providers Date of Admission: 04/08/17 01:30 Date of discharge: 04/10/17 Attending physician: DOUGLAS MEJÍA 04/08/17 10:51 Consult to Physician [CONS] Routine Consulting Provider: ESTEFANÍA GAONA Reason For Exam: OB positive Place consult to:: DR. HU Notified:: DR. HU Phone number called:: IN HOUSE Was contact made?: Yes If yes, spoke with:: DR. HU Time called:: 11:57 Primary care physician: OCTAVIA PATEL Hospitalization Condition: Stable Hospital course: Patient is a 62-year-old [place] female who is presenting with generalized weakness for unknown period of time. Patient is a poor historian and does have some early onset dementia. Patient is presenting needing a blood transfusion. Patient was seen at outside facility had blood drawn that showed that her hemoglobin was 6.3. Patient has no complaints of abdominal pain or blood in her stool. Patient states she has not had a menses in multiple years. Patient just states that she has weakness but is unable secondary to her early dementia to give further history. Patient also has a history of COPD dementia and hypertension Discharge diagnosis and management: /Symptomatic anemia Anemia improved post transfusion. No need to repeat EGD and colonoscopy per GI as it was done in March 2017. Patient and previously advised last month and again yesterday to make f/u appointment for outpatient pill camera study. /HTN (hypertension) Well-controlled Continue present medications /Hypothyroidism (acquired) Continue Synthroid /CAD (coronary artery disease) Continue Plavix Disposition: [id number]/[place]-06 HOME UNDER HOME [facility] Core Measure Documentation - Palliative Care Palliative Care/ Comfort Measures: Palliative Care/Comfort Measures Exam - Physical Exam Narrative exam: General appearance: Present: no acute distress - EENT Eyes: PERRL, EOM intact ENT: hearing intact, clear oral mucosa - Neck Neck: supple, normal ROM - Respiratory Respiratory effort: normal - Cardiovascular Rhythm: regular Heart Sounds: Present: S1 & S2 Extremities: No edema - Gastrointestinal General gastrointestinal: Present: soft, non-tender - Integumentary Integumentary: clear - Musculoskeletal Musculoskeletal: strength equal bilaterally - Neurologic Neurologic: no focal deficits - Constitutional Vitals: Temp Pulse Resp BP Pulse Ox 98.4 F 57 L 20 144/75 98 04/10/17 11:20 04/10/17 11:20 04/10/17 11:20 04/10/17 11:20 04/10/17 11:20 Plan Activity: advance as tolerated Weight Bearing Status: Weight Bear as Tolerated Diet: low cholesterol, low salt Additional Instructions: f/u with GI in one week for scheduling capsule endoscopy Follow up with: OCTAVIA PATEL MD [Primary Care Provider] - 3-5 Days
== END 2017-04-10 15:15 | disposition home health service (06) | DRG 812 ==
LOC: ED 14:39 → 3A 04-08 01:30
PROVIDERS: ADMIT Internal Medicine; ATTEND Internal Medicine
PROC: 30233N1 Transfusion of Nonautologous Red Blood Cells into Peripheral Vein, Percutaneous Approach (ICD-10-PCS; principal; 2017-04-08)
PROC: 3E0234Z Introduction of Serum, Toxoid and Vaccine into Muscle, Percutaneous Approach (ICD-10-PCS; 2017-04-09)
DX: D50.9 Iron deficiency anemia, unspecified (principal); K92.2 Gastrointestinal hemorrhage, unspecified; I10 Essential (primary) hypertension; E03.9 Hypothyroidism, unspecified; I25.10 Atherosclerotic heart disease of native coronary artery without angina pectoris; J44.9 Chronic obstructive pulmonary disease, unspecified; E78.5 Hyperlipidemia, unspecified; Z51.5 Encounter for palliative care; F03.90 Unspecified dementia, unspecified severity, without behavioral disturbance, psychotic disturbance, mood disturbance, and anxiety; Z87.891 Personal history of nicotine dependence; Z95.1 Presence of aortocoronary bypass graft; Z79.82 Long term (current) use of aspirin; Z23 Encounter for immunization; Z86.73 Personal history of transient ischemic attack (TIA), and cerebral infarction without residual deficits; Z88.1 Allergy status to other antibiotic agents
CPT/HCPCS: 36415; 80048; 80053; 82607; 82747; 83550; 84443; 85014; 85018; 85025; 86850; 86900; 86901; 86920; 90471; 90686; 99406; C9113; G0008; J2270; J7040; J7042; P9016

== ENCOUNTER 2017-09-27 13:04 | Emergency (ER) | payer MEDICARE ==
[2017-09-27] MEDS ORDERED: ASPIRIN PO ONE (13:33)
[2017-09-27 14:19] LABS: Basophils # (Auto) 0.1 K/mm3 (0.0-0.1); Basophils % (Auto) 1.6 % (0.0-1.8); Eosinophils # (Auto) 0.1 K/mm3 (0.0-0.4); Eosinophils % (Auto) 1.4 % (0.0-4.3); Hemoglobin 9.9 gm/dl (10.1-14.3); Lymphocytes # (Auto) 1.7 K/mm3 (1.2-5.4); Lymphocytes % (Auto) 29.8 % (13.4-35.0); Mean Corpuscular HGB Conc 31 % (30-34); Mean Corpuscular Hemoglobin 28 pg (28-32); Mean Corpuscular Volume 92 fl (79-97); Monocytes # (Auto) 0.5 K/mm3 (0.0-0.8); Monocytes % (Auto) 9.1 % (0.0-7.3); Platelet Count 365 K/mm3 (140-440); Red Cell Distribution Width 17.4 % (13.2-15.2)
[2017-09-27 14:35] LABS: BUN/Creatinine Ratio 22; Blood Urea Nitrogen 20 mg/dL (7-17); Calcium 9.7 mg/dL (8.4-10.2); Hemolysis Index 0
[2017-09-27] MEDS ORDERED: MORPHINE IV ONE ×2 (17:29→20:27)
[2017-09-27] MEDS ORDERED: ZOFRAN IV ONE ×2 (17:29→20:28)
--- NOTE | 2017-09-27 17:32 | Emergency Department Report ---
ED General Adult HPI - General Chief complaint: Chest Pain Stated complaint: CHEST PAIN Time Seen by Provider: 09/27/17 17:17 Source: patient Mode of arrival: Ambulatory Limitations: Altered Mental Status - History of Present Illness Initial comments: Patient presents to emergency department with complaint of chest pain 2 days. When asked to point to the location of the pain and patient actually points to right upper quadrant. She states the pain radiates to her scapula. Patient has no other complaints and denies anything making it better or worse -: Sudden Location: chest, abdomen Radiation: non-radiation Severity scale (0 -10): 5 Quality: sharp Consistency: constant Improves with: none Worsens with: none Associated Symptoms: denies other symptoms - Related Data Previous Rx's Medication Instructions Recorded Last Taken Type Aspirin [Aspirin BABY CHEW TAB] 81 mg PO QDAY 30 Days tab.chew 02/15/17 Unknown Rx AtorvaSTATin [Lipitor] 40 mg PO QHS #30 tablet 02/15/17 Unknown Rx Clopidogrel [Plavix] 75 mg PO QDAY 30 Days tablet 02/15/17 Unknown Rx ISOSORBIDE MONOnitrate [Imdur ER] 30 mg PO QDAY 30 Days tablet 02/15/17 Unknown Rx Levothyroxine [Synthroid] 100 mcg PO DAILY@0600 30 Days 02/15/17 Unknown Rx tablet Metoprolol [Lopressor TAB] 25 mg PO BID 30 Days tablet 03/17/17 Unknown Rx Pantoprazole [Protonix TAB] 40 mg PO BID #60 tablet 03/17/17 Unknown Rx HYDROcodone/ACETAMINOPHEN [[place] 1 each PO Q6HR PRN #12 tablet 09/27/17 Unknown Rx 5-325 Tablet] Allergies Allergy/AdvReac Type Severity Reaction Status Date / Time tetracycline Allergy Unknown Unknown Verified 02/12/17 14:41 ED Review of Systems ROS: Stated complaint: CHEST PAIN Other details as noted in HPI Constitutional: denies: chills, fever Eyes: denies: eye pain, eye discharge, vision change ENT: denies: ear pain, throat pain Respiratory: denies: cough, shortness of breath, wheezing Cardiovascular: denies: chest pain, palpitations Endocrine: no symptoms reported Gastrointestinal: denies: abdominal pain, nausea, diarrhea Genitourinary: other (abdominal pain). denies: urgency, dysuria, discharge Musculoskeletal: denies: back pain, joint swelling, arthralgia Skin: denies: rash, lesions Neurological: denies: headache, weakness, paresthesias Psychiatric: denies: anxiety, depression Hematological/Lymphatic: denies: easy bleeding, easy bruising ED Past Medical Hx - Past Medical History Hx Hypertension: Yes Hx CVA: No Hx Congestive Heart Failure: No Hx Diabetes: No Hx Arthritis: No Hx Seizures: Yes Hx Asthma: No Hx COPD: Yes Hx Dementia: Yes (early onset) Additional medical history: brain anuerysm. Stents - Surgical History Past Surgical History?: Yes Additional Surgical History: 2 stents placed - Social History Smoking Status: Former Smoker Substance Use Type: None - Medications Home Medications: Home Medications Medication Instructions Recorded Confirmed Last Taken Type Aspirin [Aspirin BABY CHEW TAB] 81 mg PO QDAY 30 Days tab.chew 02/15/17 Unknown Rx AtorvaSTATin [Lipitor] 40 mg PO QHS #30 tablet 02/15/17 04/08/17 Unknown Rx Clopidogrel [Plavix] 75 mg PO QDAY 30 Days tablet 02/15/17 04/08/17 Unknown Rx ISOSORBIDE MONOnitrate [Imdur ER] 30 mg PO QDAY 30 Days tablet 02/15/17 Unknown Rx Levothyroxine [Synthroid] 100 mcg PO DAILY@0600 30 Days 02/15/17 04/08/17 Unknown Rx tablet Metoprolol [Lopressor TAB] 25 mg PO BID 30 Days tablet 03/17/17 04/08/17 Unknown Rx Pantoprazole [Protonix TAB] 40 mg PO BID #60 tablet 03/17/17 04/08/17 Unknown Rx HYDROcodone/ACETAMINOPHEN [[place] 1 each PO Q6HR PRN #12 tablet 09/27/17 Unknown Rx 5-325 Tablet] ED Physical Exam - General Limitations: Altered Mental Status General appearance: alert, in no apparent distress - Head Head exam: Present: atraumatic, normocephalic - Eye Eye exam: Present: normal appearance - ENT ENT exam: Present: mucous membranes moist - Neck Neck exam: Present: normal inspection - Respiratory Respiratory exam: Present: normal lung sounds bilaterally. Absent: respiratory distress, wheezes, rales - Cardiovascular Cardiovascular Exam: Present: regular rate, normal rhythm. Absent: systolic murmur, diastolic murmur, rubs, gallop - GI/Abdominal GI/Abdominal exam: Present: soft, tenderness (tender to palpation right upper quadrant), normal bowel sounds. Absent: distended - Extremities Exam Extremities exam: Present: normal inspection - Back Exam Back exam: Present: normal inspection - Neurological Exam Neurological exam: Present: alert, oriented X3 - Psychiatric Psychiatric exam: Present: normal affect, normal mood - Skin Skin exam: Present: warm, dry, intact, normal color. Absent: rash ED Course Vital Signs 09/27/17 09/27/17 09/27/17 13:31 17:54 18:00 Temperature 98.1 F Pulse Rate 62 75 Respiratory 16 16 Rate Blood Pressure 122/68 144/65 O2 Sat by Pulse 98 99 100 Oximetry 09/27/17 09/27/17 09/27/17 18:15 18:30 18:45 Temperature Pulse Rate 73 64 59 L Respiratory 11 L 12 12 Rate Blood Pressure 155/77 148/78 149/75 O2 Sat by Pulse 99 100 99 Oximetry ED Medical Decision Making - Lab Data Result diagrams: 09/27/17 14:02 09/27/17 14:02 - EKG Data EKG shows normal: sinus rhythm Rate: normal - Medical Decision Making His customers also patient and her male health companion Critical care attestation.: If time is entered above; I have spent that time in minutes in the direct care of this critically ill patient, excluding procedure time. ED Disposition Clinical Impression: Right upper quadrant abdominal pain, Nonspecific chest pain Disposition: - TO HOME OR SELFCARE Is pt being admited?: No Does the pt Need Aspirin: No Condition: Stable Instructions: Chest Pain (ED), Acute Abdominal Pain (ED), Noncardiac Chest Pain (ED) Additional Instructions: Return if worse Prescriptions: HYDROcodone/ACETAMINOPHEN [[place] 5-325 Tablet] 1 each PO Q6HR PRN #12 tablet PRN Reason: Pain, Moderate (4-6) Referrals: JAZMYNE MERCHANT MD [Primary Care Provider] - 3-5 Days Time of Disposition: 21:27
[2017-09-27 17:57] LABS: INR 0.94 (0.87-1.13)
[2017-09-27 17:58] LABS: Partial Thromboplastin Time 25.2 Sec. (24.2-36.6)
[2017-09-27 18:00] LABS: Alanine Aminotransferase 18 units/L (7-56); Lipase 56 units/L (13-60)
[2017-09-27 18:02] LABS: Bilirubin,Direct < 0.2 mg/dL (0-0.2)
[2017-09-27] MEDS ORDERED: ZOFRAN ONE (20:14)
[2017-09-27] MEDS ORDERED: MORPHINE ONE (20:14)
--- NOTE | 2017-09-27 20:17 | Ultrasound Report ---
FINAL REPORT PROCEDURE: Limited abdominal ultrasound. TECHNIQUE: Real-time sonography was performed of the right upper quadrant of the abdomen with image documentation. CPT 92186 HISTORY: Right upper quadrant abdominal pain. COMPARISON: No prior studies are available for comparison. FINDINGS: The pancreas is suboptimally visualized. The proximal portion of the abdominal aorta has a normal caliber. The inferior vena cava is patent. The liver has uniform echogenicity as far as visualized. There are no definite focal masses. The portal vein is patent by color flow imaging. The common bile duct measures 2.5 millimeters. The gallbladder is well distended with normal wall thickness. There are no gallstones identified. The right kidney appears normal in size and has normal echogenicity. There is no hydronephrosis. There may be a very small cyst in the right kidney. IMPRESSION: No significant abnormality.
[2017-09-27 22:00] VITALS: BP 132/61
== END 2017-09-27 21:59 | disposition home or self-care (01) ==
LOC: ED 13:04
DX: R07.9 Chest pain, unspecified (principal); R10.11 Right upper quadrant pain; I10 Essential (primary) hypertension; F03.90 Unspecified dementia, unspecified severity, without behavioral disturbance, psychotic disturbance, mood disturbance, and anxiety; Z87.891 Personal history of nicotine dependence; Z79.82 Long term (current) use of aspirin; Z88.1 Allergy status to other antibiotic agents
CPT/HCPCS: 36415; 76705; 80048; 80074; 83690; 84484; 85025; 85610; 85730; 93005; 93010; 96374; 96375; 96376; 99284; J2270; J2405

== ENCOUNTER 2020-11-23 13:40 | Emergency (ER) | payer MEDICARE ==
[2020-11-23 13:56] VITALS: BP 134/60
--- NOTE | 2020-11-23 13:58 | Emergency Department Report ---
Blank Doc - Documentation Documentation: 56-year-old female presents with left-sided chest pain and abdominal pain with shortness. 1- This is a initial triage assessment/medical screening only. Full assessment and work-up will be completed once the patient is in proper hospital gown, ED bed and in a private room setting. This initial assessment/diagnostic orders/clinical plan/ treatment(s) is/are subject to change based on pt's health status, clinical progression and re-assessment by fellow clinical providers in the ED. Further treatment and workup at subsequent clinical providers discretion. Patient/guardians urged not to elope from ED as their condition may be serious if not clinically assessed and managed. 2-cardiac workup
--- NOTE | 2020-11-23 14:17 | XRay Report ---
CHEST 2 VIEWS INDICATION: Chest Pain. COMPARISON: 02/12/2017. FINDINGS: Support devices: None. Heart: Within normal limits. Lungs/Pleura: No acute air space or interstitial disease. No significant pleural effusion. IMPRESSION: No acute findings. Signer Name: Aquilino Pickard MD Signed: 11/23/2020 2:12 PM Workstation Name: [id number]
[2020-11-23 15:56] LABS: Alanine Aminotransferase 12 units/L (7-56); Albumin 3.7 g/dL (3.9-5); BUN/Creatinine Ratio 22; Blood Urea Nitrogen 22 mg/dL (7-17); Calcium 8.9 mg/dL (8.4-10.2); Hemolysis Index 14
[2020-11-23 15:59] LABS: Basophils # (Auto) 0.1 K/mm3 (0.0-0.1); Basophils % (Auto) 1.6 % (0.0-1.8); Eosinophils # (Auto) 0.1 K/mm3 (0.0-0.4); Hematocrit 35.6 % (30.3-42.9); Hemoglobin 11.4 gm/dl (10.1-14.3); Lymphocytes # (Auto) 1.4 K/mm3 (1.2-5.4); Lymphocytes % (Auto) 24.4 % (13.4-35.0); Mean Corpuscular HGB Conc 32 % (30-34); Mean Corpuscular Volume 87 fl (79-97); Monocytes # (Auto) 0.6 K/mm3 (0.0-0.8); Monocytes % (Auto) 9.9 % (0.0-7.3); Platelet Count 250 K/mm3 (140-440); Red Blood Count 4.11 M/mm3 (3.65-5.03)
[2020-11-23 16:04] LABS: Red Cell Distribution Width 21.1 % (13.2-15.2)
[2020-11-23 16:17] LABS: INR 0.92 (0.87-1.13); Partial Thromboplastin Time 24.3 Sec. (24.2-36.6)
--- NOTE | 2020-11-24 10:17 | Electrocardiograph Report ---
[facility] Test Date: 2020-11-23 Test Time: 13:48:13 Pat Name: ANCA CLARK Department: Room: Gender: F Network Security Officer: TD : 1955 Requested By: DARRIUS BOOTH Order Number: [id number] Reading MD: Carlos Manuel Deleon Measurements Intervals [place] Rate: 49 P: 83 MD: 155 QRS: -14 QRSD: 92 T: 15 QT: 467 QTc: 422 Interpretive Statements Sinus bradycardia Consider inferior infarct,old No previous ECG available for comparison Electronically Signed On 11-24-2020 10:16:57 EDT by Carlos Manuel Deleon
== END 2020-11-24 01:52 | disposition left against medical advice (07) ==
LOC: ED 13:40
DX: R07.9 Chest pain, unspecified (principal); Z53.21 Procedure and treatment not carried out due to patient leaving prior to being seen by health care provider
CPT/HCPCS: 36415; 71046; 80053; 83690; 84484; 85025; 85610; 85730; 93005

== ENCOUNTER 2021-02-18 14:26 | Emergency (ER) | payer MEDICARE ==
--- NOTE | 2021-02-18 15:27 | Emergency Department Report ---
ED General Adult HPI - General Chief complaint: Abdominal Pain Stated complaint: ABD PAIN Time Seen by Provider: 02/18/21 15:26 Source: patient, family Mode of arrival: Wheelchair Limitations: No Limitations, Other - History of Present Illness Initial comments: patient is a 66-year-old female who presents with lower abdominal pain is retained by patient's suspect due to patient having vascular dementia. He says that the abdominal pain is a 8 out of 10 is a burning type of pain it does not radiate nothing makes it better nothing makes it worse it has been going on for last 3 days. Patient denies having any nausea or vomiting she had a bowel movement recently. She states that she also has a headache. - Related Data Previous Rx's Medication Instructions Recorded Last Taken Type Aspirin [Aspirin BABY CHEW TAB] 81 mg PO QDAY 30 Days tab.chew 02/15/17 Unknown Rx AtorvaSTATin [Lipitor] 40 mg PO QHS #30 tablet 02/15/17 Unknown Rx Clopidogrel [Plavix] 75 mg PO QDAY 30 Days tablet 02/15/17 Unknown Rx ISOSORBIDE MONOnitrate [Imdur ER] 30 mg PO QDAY 30 Days tablet 02/15/17 Unknown Rx Levothyroxine [Synthroid] 100 mcg PO DAILY@0600 30 Days 02/15/17 Unknown Rx tablet Metoprolol [Lopressor TAB] 25 mg PO BID 30 Days tablet 03/17/17 Unknown Rx Pantoprazole [Protonix TAB] 40 mg PO BID #60 tablet 03/17/17 Unknown Rx HYDROcodone/ACETAMINOPHEN [[place] 1 each PO Q6HR PRN #12 tablet 09/27/17 Unknown Rx 5-325 Tablet] Allergies Allergy/AdvReac Type Severity Reaction Status Date / Time tetracycline Allergy Unknown Unknown Verified 02/18/21 14:34 ED Review of Systems ROS: Stated complaint: ABD PAIN Other details as noted in HPI Constitutional: denies: chills, fever Eyes: denies: eye pain, eye discharge, vision change ENT: denies: ear pain, throat pain Respiratory: denies: cough, shortness of breath, wheezing Cardiovascular: denies: chest pain, palpitations Endocrine: no symptoms reported Gastrointestinal: abdominal pain. denies: nausea, diarrhea Genitourinary: denies: urgency, dysuria, discharge Musculoskeletal: denies: back pain, joint swelling, arthralgia Skin: denies: rash, lesions Neurological: headache. denies: weakness, paresthesias Psychiatric: denies: anxiety, depression Hematological/Lymphatic: denies: easy bleeding, easy bruising ED Past Medical Hx - Past Medical History Hx Hypertension: Yes Hx CVA: No Hx Congestive Heart Failure: No Hx Diabetes: No Hx Arthritis: No Hx Seizures: Yes Hx Asthma: No Hx COPD: Yes Hx Dementia: Yes (early onset) Additional medical history: brain anuerysm. Stents - Surgical History Additional Surgical History: 2 stents placed - Social History Smoking Status: Former Smoker Substance Use Type: None - Medications Home Medications: Home Medications Medication Instructions Recorded Confirmed Last Taken Type Aspirin [Aspirin BABY CHEW TAB] 81 mg PO QDAY 30 Days tab.chew 02/15/17 04/08/17 Unknown Rx AtorvaSTATin [Lipitor] 40 mg PO QHS #30 tablet 02/15/17 04/08/17 Unknown Rx Clopidogrel [Plavix] 75 mg PO QDAY 30 Days tablet 02/15/17 04/08/17 Unknown Rx ISOSORBIDE MONOnitrate [Imdur ER] 30 mg PO QDAY 30 Days tablet 02/15/17 04/08/17 Unknown Rx Levothyroxine [Synthroid] 100 mcg PO DAILY@0600 30 Days 02/15/17 04/08/17 Unknown Rx tablet Metoprolol [Lopressor TAB] 25 mg PO BID 30 Days tablet 03/17/17 04/08/17 Unknown Rx Pantoprazole [Protonix TAB] 40 mg PO BID #60 tablet 03/17/17 04/08/17 Unknown Rx HYDROcodone/ACETAMINOPHEN [[place] 1 each PO Q6HR PRN #12 tablet 09/27/17 Unknown Rx 5-325 Tablet] ED Physical Exam - General Limitations: No Limitations, Other General appearance: alert, in no apparent distress - Head Head exam: Present: atraumatic, normocephalic - Eye Eye exam: Present: normal appearance - ENT ENT exam: Present: mucous membranes moist - Neck Neck exam: Present: normal inspection - Respiratory Respiratory exam: Present: normal lung sounds bilaterally. Absent: respiratory distress - Cardiovascular Cardiovascular Exam: Present: regular rate, normal rhythm. Absent: systolic mu rmur, diastolic murmur, rubs, gallop - GI/Abdominal GI/Abdominal exam: Present: soft, normal bowel sounds - Extremities Exam Extremities exam: Present: normal inspection - Back Exam Back exam: Present: normal inspection - Neurological Exam Neurological exam: Present: alert - Psychiatric Psychiatric exam: Present: normal affect, normal mood - Skin Skin exam: Present: warm, dry, intact, normal color. Absent: rash ED Course Vital Signs 02/18/21 02/18/21 02/18/21 14:30 17:19 17:22 Temperature 98 F Pulse Rate 105 H 85 Respiratory 20 18 Rate Blood Pressure Blood Pressure 116/62 124/51 [Left] O2 Sat by Pulse 100 98 99 Oximetry 02/18/21 02/18/21 02/18/21 17:31 17:45 18:01 Temperature Pulse Rate Respiratory Rate Blood Pressure 127/53 Blood Pressure [Left] O2 Sat by Pulse 99 98 96 Oximetry 02/18/21 18:09 Temperature Pulse Rate Respiratory 18 Rate Blood Pressure Blood Pressure [Left] O2 Sat by Pulse 98 Oximetry - Reevaluation(s) Reevaluation #1: 02/18/21 19:23 Patient is feeling better I will discharge patient home from the emergency department. ED Medical Decision Making - Lab Data Result diagrams: 02/18/21 16:00 02/18/21 16:05 Lab Results 02/18/21 02/18/21 02/18/21 Range/Units 16:00 16:05 17:41 WBC 6.8 (4.5-11.0) K/mm3 RBC 3.93 (3.65-5.03) M/mm3 Hgb 8.9 L (10.1-14.3) gm/dl Hct 30.4 (30.3-42.9) % MCV 78 L (79-97) fl MCH 23 L (28-32) pg MCHC 29 L (30-34) % RDW 21.0 H (13.2-15.2) % Plt Count 296 (140-440) K/mm3 Lymph % (Auto) 27.7 (13.4-35.0) % [place] % (Auto) 8.9 H (0.0-7.3) % Eos % (Auto) 1.8 (0.0-4.3) % Baso % (Auto) 1.8 (0.0-1.8) % Lymph # (Auto) 1.9 (1.2-5.4) K/mm3 [place] # (Auto) 0.6 (0.0-0.8) K/mm3 Eos # (Auto) 0.1 (0.0-0.4) K/mm3 Baso # (Auto) 0.1 (0.0-0.1) K/mm3 Seg Neutrophils % 59.8 (40.0-70.0) % Seg Neutrophils # 4.1 (1.8-7.7) K/mm3 Sodium 136 L (137-145) mmol/L Potassium 3.9 (3.6-5.0) mmol/L Chloride 103.7 (98-107) mmol/L Carbon Dioxide 19 L (22-30) mmol/L Anion Gap 17 mmol/L BUN 20 H (7-17) mg/dL Creatinine 1.0 (0.6-1.2) mg/dL Estimated GFR > 60 ml/min BUN/Creatinine Ratio 20 % Glucose 159 H (65-100) mg/dL Calcium 9.0 (8.4-10.2) mg/dL Total Bilirubin < 0.20 (0.1-1.2) mg/dL AST 13 (5-40) units/L ALT 15 (7-56) units/L Alkaline Phosphatase 90 (35-129) units/L Total Protein 7.4 (6.3-8.2) g/dL Albumin 4.0 (3.9-5) g/dL Albumin/Globulin Ratio 1.2 % Lipase 81 H (13-60) units/L Urine Color Yellow (Yellow) Urine Turbidity Slightly-cloudy (Clear) Urine pH 5.0 (5.0-7.0) Ur Specific [place] 1.025 (1.003-1.030) Urine Protein <15 mg/dl (Negative) mg/dL Urine Glucose (UA) Neg (Negative) mg/dL Urine Ketones Neg (Negative) mg/dL Urine Blood Sm (Negative) Urine Nitrite Neg (Negative) Urine Bilirubin Neg (Negative) Urine Urobilinogen < 2.0 (<2.0) mg/dL Ur Leukocyte Esterase Tr (Negative) Urine WBC (Auto) 5.0 (0.0-6.0) /HPF Urine RBC (Auto) 5.0 (0.0-6.0) /HPF U Epithel Cells (Auto) 3.0 (0-13.0) /HPF - Radiology Data Radiology results: report reviewed, image reviewed CT abdomen: Shows no acute abdominal process - Medical Decision Making Chief medical diagnosis: GERD Differential medical diagnosis: Pancreatitis, small bowel obstruction We will get CT scan CBC BMP lipase IV morphine blood work and I will reevaluate the patient Critical care attestation.: If time is entered above; I have spent that time in minutes in the direct care of this critically ill patient, excluding procedure time. ED Disposition Clinical Impression: Tension headache Abdominal pain Qualifiers: Abdominal location: epigastric Qualified Code(s): R10.13 - Epigastric pain Vascular dementia Qualifiers: Dementia behavioral disturbance: without behavioral disturbance Qualified Code(s): F01.50 - Vascular dementia without behavioral disturbance Disposition: 01 HOME / SELF CARE / HOMELESS Is pt being admited?: No Does the pt Need Aspirin: No Condition: Stable Instructions: Abdominal Pain (ED)
[2021-02-18] MEDS ORDERED: ALUM-MAG HYDROXIDE-SIMETHICONE 200-200-20MG/5ML ORAL LIQD 30 ML PO ONE (15:43)
[2021-02-18] MEDS ORDERED: LIDOCAINE VISCOUS 2% 15 ML ORAL LIQD PO ONE (15:43)
[2021-02-18 16:17] LABS: Basophils # (Auto) 0.1 K/mm3 (0.0-0.1); Basophils % (Auto) 1.8 % (0.0-1.8); Eosinophils # (Auto) 0.1 K/mm3 (0.0-0.4); Eosinophils % (Auto) 1.8 % (0.0-4.3); Lymphocytes # (Auto) 1.9 K/mm3 (1.2-5.4); Lymphocytes % (Auto) 27.7 % (13.4-35.0); Mean Corpuscular HGB Conc 29 % (30-34); Mean Corpuscular Volume 78 fl (79-97); Monocytes # (Auto) 0.6 K/mm3 (0.0-0.8); Monocytes % (Auto) 8.9 % (0.0-7.3); Platelet Count 296 K/mm3 (140-440); Red Blood Count 3.93 M/mm3 (3.65-5.03)
[2021-02-18 16:27] LABS: Hematocrit 30.4 % (30.3-42.9); Hemoglobin 8.9 gm/dl (10.1-14.3)
[2021-02-18 16:33] LABS: Alanine Aminotransferase 15 units/L (7-56); BUN/Creatinine Ratio 20; Blood Urea Nitrogen 20 mg/dL (7-17); Hemolysis Index 3
[2021-02-18] MEDS ORDERED: MORPHINE 4 MG/1 ML INJ IV ONE (18:02)
[2021-02-18 18:22] LABS: Bilirubin,Urine NEG (Negative); Blood,Urine SM (Negative); Color,Urine Yellow (Yellow); Protein,Urine <15 mg/dL mg/dL (Negative); Urobilinogen,Urine < 2.0 mg/dL (<2.0)
--- NOTE | 2021-02-18 18:50 | Cat Scan Report ---
CT ABDOMEN AND PELVIS WITH CONTRAST INDICATION / CLINICAL INFORMATION: abd pain 100 ml omni 300 . TECHNIQUE: Axial CT images were obtained through the abdomen and pelvis after IV contrast. All CT sc ans at this location are performed using CT dose reduction for ALARA by means of automated exposure c ontrol. COMPARISON: None available. FINDINGS: LOWER CHEST: No significant abnormality. LIVER: Diffusely hypodense characteristic of fatty infiltration. GALLBLADDER: Cholecystectomy. BILE DUCTS: No significant abnormality. PANCREAS: No significant abnormality. SPLEEN: No significant abnormality. ADRENALS: No significant abnormality. RIGHT KIDNEY / URETER: No significant abnormality. LEFT KIDNEY / URETER: No significant abnormality. STOMACH / SMALL BOWEL: No significant abnormality. COLON: Diverticulosis without acute inflammation. APPENDIX: Not visualized. PERITONEUM: No free fluid. No free air. No fluid collection. LYMPH NODES: No significant adenopathy. AORTA / ARTERIES: Moderate atherosclerotic calcification without acute abnormality. IVC / VEINS: No significant abnormality. URINARY BLADDER: No significant abnormality. REPRODUCTIVE ORGANS: Uterus is absent. No significant adnexal abnormality. ADDITIONAL FINDINGS: None. SKELETAL SYSTEM: No significant abnormality. IMPRESSION: 1. No inflammatory process or bowel obstruction. 2. Hepatic steatosis. Signer Name: Alon Durán MD Signed: 02/18/2021 6:45 PM Workstation Name: [id number]
[2021-02-18 19:19] VITALS: BP 124/47
== END 2021-02-18 19:43 | disposition home or self-care (01) ==
LOC: ED 14:26
DX: G44.209 Tension-type headache, unspecified, not intractable (principal); F01.50 Vascular dementia, unspecified severity, without behavioral disturbance, psychotic disturbance, mood disturbance, and anxiety; I10 Essential (primary) hypertension; R10.30 Lower abdominal pain, unspecified; Z87.891 Personal history of nicotine dependence; Z88.1 Allergy status to other antibiotic agents; Z79.899 Other long term (current) drug therapy
CPT/HCPCS: 36415; 74177; 80053; 81001; 83690; 85025; 96374; 99284; J2270; Q9967

== ENCOUNTER 2021-03-25 08:48 | Emergency (ER) | payer MEDICARE ==
--- NOTE | 2021-03-25 09:15 | Event Note ---
ED Screening Note Date of service: 03/25/21 Time: 09:10 ED Screening Note: 66-year-old male was brought to the ER today by her spouse with concern for possible stroke. reports that 45 minutes ago when he got home, he noticed that patient was having difficulty opening her right eye and it appeared to him that she was having some right-sided facial droop. Patient does have underlying dementia, and he felt that patient had worsening confusion this morning. Patient mainly complaining of right facial pain, right eye pain and difficulty opening her eye and she also has a bad cough with associated shortness of breath and wheezing. Spouse reports that he has not noticed any difficulty with speech, or any focal weakness to her extremities. Past medical history significant for prior stroke, intracranial aneurysm status post coil placement, CAD status post stent placement, and hypertension. This initial assessment/diagnostic orders/clinical plan/treatment(s) is/are subject to change based on patients health status, clinical progression and re- assessment by fellow clinical providers in the ED. Further treatment and workup at subsequent clinical providers discretion. Patient/guardian urged not to elope from the ED as their condition may be serious if not clinically assessed and managed. Initial orders include: Head CT with labs/ekg
--- NOTE | 2021-03-25 09:16 | Emergency Department Report ---
ED General Adult HPI - General Chief complaint: Neuro Symptoms/Deficit Stated complaint: Painless change in vision in the right eye, change in behavior Time Seen by Provider: 03/25/21 08:58 Source: patient, family, RN notes reviewed, old records reviewed Mode of arrival: Wheelchair Limitations: Physical Limitation - History of Present Illness Initial comments: The patient is a 66-year-old female. Her past medical history includes CAD with stent, brain aneurysm, status post coiling, hypertension, dementia. As per her , she also has a history of poor vision in her left eye, secondary to an old stroke ( " its 10% of what she used to be in her left eye.") The patient is brought to the hospital by her with the and patient articulated complaint of painful loss of vision in her right eye, present since yesterday (patient and cannot specify exactly what time.) As per her , he does not believe that there is a history of trauma. The patient reports she cannot see whatsoever out of her right eye. She reports that there is no trauma that she is aware of. She also complains of headache which is occipital and right-sided. Her also endorses that the patient appears to be more confused than baseline. He reports that the patient was last seen normal "sometime yesterday", but he is not specifically sure what time she was normal for herself. At the moment, the patient denies chest pain, abdominal pain, she has a new cough, but she and her endorse that she is COVID-19 vaccinated. The patient denies extremity weakness and numbness History is limited, as both the patient and her cannot specify her exact last known well time, or onset of symptoms. The patient indicates that her left eye pain worsens when the left eye opens -: days(s) Location: head, eyes - Related Data Previous Rx's Medication Instructions Recorded Last Taken Type Aspirin [Aspirin BABY CHEW TAB] 81 mg PO QDAY 30 Days tab.chew 02/15/17 Unknown Rx AtorvaSTATin [Lipitor] 40 mg PO QHS #30 tablet 02/15/17 Unknown Rx Clopidogrel [Plavix] 75 mg PO QDAY 30 Days tablet 02/15/17 Unknown Rx ISOSORBIDE MONOnitrate [Imdur ER] 30 mg PO QDAY 30 Days tablet 02/15/17 Unknown Rx Levothyroxine [Synthroid] 100 mcg PO DAILY@0600 30 Days 02/15/17 Unknown Rx tablet Metoprolol [Lopressor TAB] 25 mg PO BID 30 Days tablet 03/17/17 Unknown Rx Pantoprazole [Protonix TAB] 40 mg PO BID #60 tablet 03/17/17 Unknown Rx HYDROcodone/ACETAMINOPHEN [Band[place] 1 each PO Q6HR PRN #12 tablet 09/27/17 Unknown Rx 5-325 Tablet] Allergies Allergy/AdvReac Type Severity Reaction Status Date / Time tetracycline Allergy Unknown Unknown Verified 03/25/21 08:52 ED Review of Systems ROS: Stated complaint: CAN'T SEE Other details as noted in HPI Comment: Unobtainable due to pts medical conditions (Review of systems as per patient and ) Constitutional: malaise, weakness Eyes: eye discharge, vision change Respiratory: denies: cough Cardiovascular: denies: chest pain Gastrointestinal: denies: abdominal pain Genitourinary: as per HPI Neurological: weakness, confusion ED Past Medical Hx - Past Medical History Hx Hypertension: Yes Hx CVA: No Hx Congestive Heart Failure: No Hx Diabetes: No Hx Arthritis: No Hx Seizures: Yes Hx Asthma: No Hx COPD: Yes Hx Dementia: Yes (early onset) Additional medical history: brain anuerysm. Stents - Surgical History Additional Surgical History: 2 stents placed - Social History Smoking Status: Former Smoker Substance Use Type: None - Medications Home Medications: Home Medications Medication Instructions Recorded Confirmed Last Taken Type Aspirin [Aspirin BABY CHEW TAB] 81 mg PO QDAY 30 Days tab.chew 02/15/17 04/08/17 Unknown Rx AtorvaSTATin [Lipitor] 40 mg PO QHS #30 tablet 02/15/17 04/08/17 Unknown Rx Clopidogrel [Plavix] 75 mg PO QDAY 30 Days tablet 02/15/17 04/08/17 Unknown Rx ISOSORBIDE MONOnitrate [Imdur ER] 30 mg PO QDAY 30 Days tablet 02/15/17 04/08/17 Unknown Rx Levothyroxine [Synthroid] 100 mcg PO DAILY@0600 30 Days 02/15/17 04/08/17 Unknown Rx tablet Metoprolol [Lopressor TAB] 25 mg PO BID 30 Days tablet 03/17/17 04/08/17 Unknown Rx Pantoprazole [Protonix TAB] 40 mg PO BID #60 tablet 03/17/17 04/08/17 Unknown Rx HYDROcodone/ACETAMINOPHEN [[place] 1 each PO Q6HR PRN #12 tablet 09/27/17 Unknown Rx 5-325 Tablet] ED Physical Exam - General Limitations: Altered Mental Status, Physical Limitation General appearance: anxious - Head Head exam: Present: atraumatic, normocephalic - Eye Eye exam: Present: EOMI, conjunctival injection (Right), other (Fluorescein and Wood's lamp examination performed on the right eye. There is minimal corneal fluorescein uptake without a Charles sign.). Absent: normal appearance (Bilateral pupils are 2 mm and do not react to light. There is bilateral arcus senilis. There is minimal conjunctival injection in the right eye), nystagmus - ENT ENT exam: Present: normal exam, normal orophraynx, mucous membranes moist, normal external ear exam - Neck Neck exam: Present: normal inspection, full ROM. Absent: tenderness, meningismus - Respiratory Respiratory exam: Present: normal lung sounds bilaterally. Absent: respiratory distress, wheezes, rales, rhonchi, stridor, decreased breath sounds - Cardiovascular Cardiovascular Exam: Present: regular rate, normal rhythm, normal heart sounds. Absent: bradycardia, tachycardia, irregular rhythm, systolic murmur, diastolic murmur, rubs, gallop - GI/Abdominal GI/Abdominal exam: Present: soft. Absent: distended, tenderness, guarding, rebound, rigid, pulsatile mass - Extremities Exam Extremities exam: Present: normal inspection, full ROM, other (2+ pulses noted in the bilateral upper and lower extremities. There is no palpable cord. negative Homans sign. Muscular compartments are soft. The pelvis is stable.). Absent: pedal edema, calf tenderness - Back Exam Back exam: Present: normal inspection, full ROM. Absent: tenderness, CVA tenderness (R), CVA tenderness (L), paraspinal tenderness, vertebral tenderness - Neurological Exam Neurological exam: Present: alert (The patient is alert to name. Patient follows commands. The patient is confused.), other (No facial droop. Tongue midline. Extraocular movements intact bilaterally. Facial sensation intact to light touch in V1, V2, V3 distribution bilaterally. 5 and a 5 strength in 4 extremities. Sensation intact to light touch in 4 extremities.) - Psychiatric Psychiatric exam: Present: anxious - Skin Skin exam: Present: warm, dry, intact, normal color, other (There is no temporal tenderness). Absent: rash ED Course Vital Signs 03/25/21 03/25/21 03/25/21 08:49 10:39 10:44 Temperature 97.8 F Pulse Rate 99 H 80 Respiratory 18 16 Rate Blood Pressure 173/89 146/71 [Left] O2 Sat by Pulse 95 97 93 Oximetry - Reevaluation(s) Reevaluation #1: 03/25/21 12:00 Differential diagnosis, including but not limited to: Migraine headache, tension headache, cluster headache, temporal arteritis, glaucoma, corneal abrasion retinal artery occlusion, retinal vein occlusion, optic neuritis, pneumonia, urinary tract infection, dementia, electrolyte derangement, thyroid derangement Assessment and plan: 66-year-old female with multiple chronic medical conditions, who presents to the ER with her with 2 complaints. The first complaint is nontraumatic painful loss of vision in her right eye, last known visual well time was sometime yesterday. EOMI, no direct or consensual photophobia. There is minimal right-sided conjunctival injection, there is no Charles sign, and there is positive fluorescein uptake. This emergency room and hospital does not have access to a Hamilton-Pen or applinator to assess for intraocular pressure. A noncontrast CT scan of the brain was obtained, which was negative for acute findings. Laboratory studies so far are nonactionable, urinalysis pending, sedimentation rate pending. Urinalysis is also pending as well. We will treat the patient's pain. Have encouraged patient to provide a urine sample. Patient will require transfer to a hospital that can provide ophthalmologic consultation and evaluation, as well as tonomet ry, as we are not able to perform intraocular pressure measurements here at this hospital. I discussed this with the patient's . He articulated understanding. Have placed a call out to [facility] transfer center. We are awaiting callback 03/25/21 12:[address] scan of the brain is negative for acute findings. Laboratory studies nonactionable sedimentation rate reviewed and appreciated. Prednisone is ordered empirically X-ray of the chest unremarkable, urinalysis unremarkable. Discussed with [facility] ophthalmology on-call, Dr. WALSH Discussed the patient's history, physical, CT scan findings and clinical impression. He indicates his group can evaluate this patient ophthalmologically at the [facility]. ER [facility] physician, Dr. Burrows is accepting physician. Medical decision makin-year-old female, with painful loss of vision in the right eye, unable to perform tonometry evaluation, requires emergent ophthalmologic consultation to exclude and potentially treat time sensitive causes of painful visual loss. The patient appears comfortable, in no acute distress, she is medically suitable for transfer at this time for diagnostic and consultative services not available at this facility 03/25/21 13:00 03/25/21 13:37 At the request of the patient's , I discussed the patient's case with her son, Mr. Dimitris Pfeiffer; [phone]. He has given verbal consent over the phone for transfer. Discussed risk, benefits and alternatives. He has articulated understanding. He states that he works in the medical field and works as a [employer] rgical technologist. He requests a call when the patient arrives at [facility]. ED Medical Decision Making - Lab Data Result diagrams: 03/25/21 09:35 03/25/21 09:35 Vital Signs 03/25/21 03/25/21 03/25/21 08:49 10:39 10:44 Temperature 97.8 F Pulse Rate 99 H 80 Respiratory 18 16 Rate Blood Pressure 173/89 146/71 [Left] O2 Sat by Pulse 95 97 93 Oximetry Lab Results 03/25/21 03/25/21 03/25/21 Range/Units 08:55 09:35 09:35 WBC 7.0 (4.5-11.0) K/mm3 RBC 4.29 (3.65-5.03) M/mm3 Hgb 9.0 L (10.1-14.3) gm/dl Hct 31.6 (30.3-42.9) % MCV 74 L (79-97) fl MCH 21 L (28-32) pg MCHC 28 L (30-34) % RDW 21.1 H (13.2-15.2) % Plt Count 386 (140-440) K/mm3 Lymph % (Auto) 21.6 (13.4-35.0) % [place] % (Auto) 8.6 H (0.0-7.3) % Eos % (Auto) 3.0 (0.0-4.3) % Baso % (Auto) 0.8 (0.0-1.8) % Lymph # (Auto) 1.5 (1.2-5.4) K/mm3 [place] # (Auto) 0.6 (0.0-0.8) K/mm3 Eos # (Auto) 0.2 (0.0-0.4) K/mm3 Baso # (Auto) 0.1 (0.0-0.1) K/mm3 Seg Neutrophils % 66.0 (40.0-70.0) % Seg Neutrophils # 4.6 (1.8-7.7) K/mm3 PT (12.2-14.9) Sec. INR (0.87-1.13) Sodium 140 (137-145) mmol/L Potassium 3.9 (3.6-5.0) mmol/L Chloride 106.0 (98-107) mmol/L Carbon Dioxide 21 L (22-30) mmol/L Anion Gap 17 mmol/L BUN 13 (7-17) mg/dL Creatinine 0.9 (0.6-1.2) mg/dL Estimated GFR > 60 ml/min BUN/Creatinine Ratio 14 % Glucose 104 H (65-100) mg/dL POC Glucose 112 H (70-105) mg/dL Calcium 9.3 (8.4-10.2) mg/dL Total Bilirubin 0.20 (0.1-1.2) mg/dL AST 14 (5-40) units/L ALT 13 (7-56) units/L Alkaline Phosphatase 88 (35-129) units/L Ammonia (25-60) umol/L Troponin T < 0.010 (0.00-0.029) ng/mL Total Protein 6.7 (6.3-8.2) g/dL Albumin 3.8 L (3.9-5) g/dL Albumin/Globulin Ratio 1.3 % TSH (0.270-4.200) mlU/mL Salicylates (2.8-20.0) mg/dL Acetaminophen (10.0-30.0) ug/mL Plasma/Serum Alcohol (0-0.07) % 03/25/21 03/25/21 03/25/21 Range/Units 09:35 09:35 09:35 WBC (4.5-11.0) K/mm3 RBC (3.65-5.03) M/mm3 Hgb (10.1-14.3) gm/dl Hct (30.3-42.9) % MCV (79-97) fl MCH (28-32) pg MCHC (30-34) % RDW (13.2-15.2) % Plt Count (140-440) K/mm3 Lymph % (Auto) (13.4-35.0) % [place] % (Auto) (0.0-7.3) % Eos % (Auto) (0.0-4.3) % Baso % (Auto) (0.0-1.8) % Lymph # (Auto) (1.2-5.4) K/mm3 [place] # (Auto) (0.0-0.8) K/mm3 Eos # (Auto) (0.0-0.4) K/mm3 Baso # (Auto) (0.0-0.1) K/mm3 Seg Neutrophils % (40.0-70.0) % Seg Neutrophils # (1.8-7.7) K/mm3 PT (12.2-14.9) Sec. INR (0.87-1.13) Sodium (137-145) mmol/L Potassium (3.6-5.0) mmol/L Chloride (98-107) mmol/L Carbon Dioxide (22-30) mmol/L Anion Gap mmol/L BUN (7-17) mg/dL Creatinine (0.6-1.2) mg/dL Estimated GFR ml/min BUN/Creatinine Ratio % Glucose (65-100) mg/dL POC Glucose (70-105) mg/dL Calcium (8.4-10.2) mg/dL Total Bilirubin (0.1-1.2) mg/dL AST (5-40) units/L ALT (7-56) units/L Alkaline Phosphatase (35-129) units/L Ammonia 22.0 L (25-60) umol/L Troponin T (0.00-0.029) ng/mL Total Protein (6.3-8.2) g/dL Albumin (3.9-5) g/dL Albumin/Globulin Ratio % TSH 2.230 (0.270-4.200) mlU/mL Salicylates < 0.3 L (2.8-20.0) mg/dL Acetaminophen (10.0-30.0) ug/mL Plasma/Serum Alcohol (0-0.07) % 03/25/21 03/25/21 03/25/21 Range/Units 09:35 09:35 09:35 WBC (4.5-11.0) K/mm3 RBC (3.65-5.03) M/mm3 Hgb (10.1-14.3) gm/dl Hct (30.3-42.9) % MCV (79-97) fl MCH (28-32) pg MCHC (30-34) % RDW (13.2-15.2) % Plt Count (140-440) K/mm3 Lymph % (Auto) (13.4-35.0) % [place] % (Auto) (0.0-7.3) % Eos % (Auto) (0.0-4.3) % Baso % (Auto) (0.0-1.8) % Lymph # (Auto) (1.2-5.4) K/mm3 [place] # (Auto) (0.0-0.8) K/mm3 Eos # (Auto) (0.0-0.4) K/mm3 Baso # (Auto) (0.0-0.1) K/mm3 Seg Neutrophils % (40.0-70.0) % Seg Neutrophils # (1.8-7.7) K/mm3 PT 13.5 (12.2-14.9) Sec. INR 0.93 (0.87-1.13) Sodium (137-145) mmol/L Potassium (3.6-5.0) mmol/L Chloride (98-107) mmol/L Carbon Dioxide (22-30) mmol/L Anion Gap mmol/L BUN (7-17) mg/dL Creatinine (0.6-1.2) mg/dL Estimated GFR ml/min BUN/Creatinine Ratio % Glucose (65-100) mg/dL POC Glucose (70-105) mg/dL Calcium (8.4-10.2) mg/dL Total Bilirubin (0.1-1.2) mg/dL AST (5-40) units/L ALT (7-56) units/L Alkaline Phosphatase (35-129) units/L Ammonia (25-60) umol/L Troponin T (0.00-0.029) ng/mL Total Protein (6.3-8.2) g/dL Albumin (3.9-5) g/dL Albumin/Globulin Ratio % TSH (0.270-4.200) mlU/mL Salicylates (2.8-20.0) mg/dL Acetaminophen 6.7 L (10.0-30.0) ug/mL Plasma/Serum Alcohol < 0.01 (0-0.07) % Lab Results 03/25/21 03/25/21 03/25/21 Range/Units 08:55 09:35 09:35 WBC 7.0 (4.5-11.0) K/mm3 RBC 4.29 (3.65-5.03) M/mm3 Hgb 9.0 L (10.1-14.3) gm/dl Hct 31.6 (30.3-42.9) % MCV 74 L (79-97) fl MCH 21 L (28-32) pg MCHC 28 L (30-34) % RDW 21.1 H (13.2-15.2) % Plt Count 386 (140-440) K/mm3 Lymph % (Auto) 21.6 (13.4-35.0) % [place] % (Auto) 8.6 H (0.0-7.3) % Eos % (Auto) 3.0 (0.0-4.3) % Baso % (Auto) 0.8 (0.0-1.8) % Lymph # (Auto) 1.5 (1.2-5.4) K/mm3 [place] # (Auto) 0.6 (0.0-0.8) K/mm3 Eos # (Auto) 0.2 (0.0-0.4) K/mm3 Baso # (Auto) 0.1 (0.0-0.1) K/mm3 Seg Neutrophils % 66.0 (40.0-70.0) % Seg Neutrophils # 4.6 (1.8-7.7) K/mm3 ESR (0-20) mm/Hr PT (12.2-14.9) Sec. INR (0.87-1.13) Sodium 140 (137-145) mmol/L Potassium 3.9 (3.6-5.0) mmol/L Chloride 106.0 (98-107) mmol/L Carbon Dioxide 21 L (22-30) mmol/L Anion Gap 17 mmol/L BUN 13 (7-17) mg/dL Creatinine 0.9 (0.6-1.2) mg/dL Estimated GFR > 60 ml/min BUN/Creatinine Ratio 14 % Glucose 104 H (65-100) mg/dL POC Glucose 112 H (70-105) mg/dL Calcium 9.3 (8.4-10.2) mg/dL Total Bilirubin 0.20 (0.1-1.2) mg/dL AST 14 (5-40) units/L ALT 13 (7-56) units/L Alkaline Phosphatase 88 (35-129) units/L Ammonia (25-60) umol/L Troponin T < 0.010 (0.00-0.029) ng/mL Total Protein 6.7 (6.3-8.2) g/dL Albumin 3.8 L (3.9-5) g/dL Albumin/Globulin Ratio 1.3 % TSH (0.270-4.200) mlU/mL Urine Color (Yellow) Urine Turbidity (Clear) Urine pH (5.0-7.0) Ur Specific [place] (1.003-1.030) Urine Protein (Negative) mg/dL Urine Glucose (UA) (Negative) mg/dL Urine Ketones (Negative) mg/dL Urine Blood (Negative) Urine Nitrite (Negative) Urine Bilirubin (Negative) Urine Urobilinogen (<2.0) mg/dL Ur Leukocyte Esterase (Negative) Urine WBC (Auto) (0.0-6.0) /HPF Urine RBC (Auto) (0.0-6.0) /HPF U Epithel Cells (Auto) (0-13.0) /HPF Urine Mucus /HPF Salicylates (2.8-20.0) mg/dL Acetaminophen (10.0-30.0) ug/mL Plasma/Serum Alcohol (0-0.07) % 03/25/21 03/25/21 03/25/21 Range/Units 09:35 09:35 09:35 WBC (4.5-11.0) K/mm3 RBC (3.65-5.03) M/mm3 Hgb (10.1-14.3) gm/dl Hct (30.3-42.9) % MCV (79-97) fl MCH (28-32) pg MCHC (30-34) % RDW (13.2-15.2) % Plt Count (140-440) K/mm3 Lymph % (Auto) (13.4-35.0) % [place] % (Auto) (0.0-7.3) % Eos % (Auto) (0.0-4.3) % Baso % (Auto) (0.0-1.8) % Lymph # (Auto) (1.2-5.4) K/mm3 [place] # (Auto) (0.0-0.8) K/mm3 Eos # (Auto) (0.0-0.4) K/mm3 Baso # (Auto) (0.0-0.1) K/mm3 Seg Neutrophils % (40.0-70.0) % Seg Neutrophils # (1.8-7.7) K/mm3 ESR (0-20) mm/Hr PT (12.2-14.9) Sec. INR (0.87-1.13) Sodium (137-145) mmol/L Potassium (3.6-5.0) mmol/L Chloride (98-107) mmol/L Carbon Dioxide (22-30) mmol/L Anion Gap mmol/L BUN (7-17) mg/dL Creatinine (0.6-1.2) mg/dL Estimated GFR ml/min BUN/Creatinine Ratio % Glucose (65-100) mg/dL POC Glucose (70-105) mg/dL Calcium (8.4-10.2) mg/dL Total Bilirubin (0.1-1.2) mg/dL AST (5-40) units/L ALT (7-56) units/L Alkaline Phosphatase (35-129) units/L Ammonia 22.0 L (25-60) umol/L Troponin T (0.00-0.029) ng/mL Total Protein (6.3-8.2) g/dL Albumin (3.9-5) g/dL Albumin/Globulin Ratio % TSH 2.230 (0.270-4.200) mlU/mL Urine Color (Yellow) Urine Turbidity (Clear) Urine pH (5.0-7.0) Ur Specific [place] (1.003-1.030) Urine Protein (Negative) mg/dL Urine Glucose (UA) (Negative) mg/dL Urine Ketones (Negative) mg/dL Urine Blood (Negative) Urine Nitrite (Negative) Urine Bilirubin (Negative) Urine Urobilinogen (<2.0) mg/dL Ur Leukocyte Esterase (Negative) Urine WBC (Auto) (0.0-6.0) /HPF Urine RBC (Auto) (0.0-6.0) /HPF U Epithel Cells (Auto) (0-13.0) /HPF Urine Mucus /HPF Salicylates < 0.3 L (2.8-20.0) mg/dL Acetaminophen (10.0-30.0) ug/mL Plasma/Serum Alcohol (0-0.07) % 03/25/21 03/25/21 03/25/21 Range/Units 09:35 09:35 09:35 WBC (4.5-11.0) K/mm3 RBC (3.65-5.03) M/mm3 Hgb (10.1-14.3) gm/dl Hct (30.3-42.9) % MCV (79-97) fl MCH (28-32) pg MCHC (30-34) % RDW (13.2-15.2) % Plt Count (140-440) K/mm3 Lymph % (Auto) (13.4-35.0) % [place] % (Auto) (0.0-7.3) % Eos % (Auto) (0.0-4.3) % Baso % (Auto) (0.0-1.8) % Lymph # (Auto) (1.2-5.4) K/mm3 [place] # (Auto) (0.0-0.8) K/mm3 Eos # (Auto) (0.0-0.4) K/mm3 Baso # (Auto) (0.0-0.1) K/mm3 Seg Neutrophils % (40.0-70.0) % Seg Neutrophils # (1.8-7.7) K/mm3 ESR (0-20) mm/Hr PT 13.5 (12.2-14.9) Sec. INR 0.93 (0.87-1.13) Sodium (137-145) mmol/L Potassium (3.6-5.0) mmol/L Chloride (98-107) mmol/L Carbon Dioxide (22-30) mmol/L Anion Gap mmol/L BUN (7-17) mg/dL Creatinine (0.6-1.2) mg/dL Estimated GFR ml/min BUN/Creatinine Ratio % Glucose (65-100) mg/dL POC Glucose (70-105) mg/dL Calcium (8.4-10.2) mg/dL Total Bilirubin (0.1-1.2) mg/dL AST (5-40) units/L ALT (7-56) units/L Alkaline Phosphatase (35-129) units/L Ammonia (25-60) umol/L Troponin T (0.00-0.029) ng/mL Total Protein (6.3-8.2) g/dL Albumin (3.9-5) g/dL Albumin/Globulin Ratio % TSH (0.270-4.200) mlU/mL Urine Color (Yellow) Urine Turbidity (Clear) Urine pH (5.0-7.0) Ur Specific [place] (1.003-1.030) Urine Protein (Negative) mg/dL Urine Glucose (UA) (Negative) mg/dL Urine Ketones (Negative) mg/dL Urine Blood (Negative) Urine Nitrite (Negative) Urine Bilirubin (Negative) Urine Urobilinogen (<2.0) mg/dL Ur Leukocyte Esterase (Negative) Urine WBC (Auto) (0.0-6.0) /HPF Urine RBC (Auto) (0.0-6.0) /HPF U Epithel Cells (Auto) (0-13.0) /HPF Urine Mucus /HPF Salicylates (2.8-20.0) mg/dL Acetaminophen 6.7 L (10.0-30.0) ug/mL Plasma/Serum Alcohol < 0.01 (0-0.07) % 03/25/21 03/25/21 Range/Units 11:44 12:10 WBC (4.5-11.0) K/mm3 RBC (3.65-5.03) M/mm3 Hgb (10.1-14.3) gm/dl Hct (30.3-42.9) % MCV (79-97) fl MCH (28-32) pg MCHC (30-34) % RDW (13.2-15.2) % Plt Count (140-440) K/mm3 Lymph % (Auto) (13.4-35.0) % [place] % (Auto) (0.0-7.3) % Eos % (Auto) (0.0-4.3) % Baso % (Auto) (0.0-1.8) % Lymph # (Auto) (1.2-5.4) K/mm3 [place] # (Auto) (0.0-0.8) K/mm3 Eos # (Auto) (0.0-0.4) K/mm3 Baso # (Auto) (0.0-0.1) K/mm3 Seg Neutrophils % (40.0-70.0) % Seg Neutrophils # (1.8-7.7) K/mm3 ESR 56 (0-20) mm/Hr PT (12.2-14.9) Sec. INR (0.87-1.13) Sodium (137-145) mmol/L Potassium (3.6-5.0) mmol/L Chloride (98-107) mmol/L Carbon Dioxide (22-30) mmol/L Anion Gap mmol/L BUN (7-17) mg/dL Creatinine (0.6-1.2) mg/dL Estimated GFR ml/min BUN/Creatinine Ratio % Glucose (65-100) mg/dL POC Glucose (70-105) mg/dL Calcium (8.4-10.2) mg/dL Total Bilirubin (0.1-1.2) mg/dL AST (5-40) units/L ALT (7-56) units/L Alkaline Phosphatase (35-129) units/L Ammonia (25-60) umol/L Troponin T (0.00-0.029) ng/mL Total Protein (6.3-8.2) g/dL Albumin (3.9-5) g/dL Albumin/Globulin Ratio % TSH (0.270-4.200) mlU/mL Urine Color Yellow (Yellow) Urine Turbidity Clear (Clear) Urine pH 5.0 (5.0-7.0) Ur Specific [place] 1.021 (1.003-1.030) Urine Protein <15 mg/dl (Negative) mg/dL Urine Glucose (UA) Neg (Negative) mg/dL Urine Ketones Neg (Negative) mg/dL Urine Blood Neg (Negative) Urine Nitrite Neg (Negative) Urine Bilirubin Neg (Negative) Urine Urobilinogen < 2.0 (<2.0) mg/dL Ur Leukocyte Esterase Neg (Negative) Urine WBC (Auto) 2.0 (0.0-6.0) /HPF Urine RBC (Auto) 1.0 (0.0-6.0) /HPF U Epithel Cells (Auto) 1.0 (0-13.0) /HPF Urine Mucus Few /HPF Salicylates (2.8-20.0) mg/dL Acetaminophen (10.0-30.0) ug/mL Plasma/Serum Alcohol (0-0.07) % Vital Signs 03/25/21 03/25/21 03/25/21 08:49 10:39 10:44 Temperature 97.8 F Pulse Rate 99 H 80 Respiratory 18 16 Rate Blood Pressure 173/89 146/71 [Left] O2 Sat by Pulse 95 97 93 Oximetry - EKG Data -: EKG Interpreted by Mn EKG shows normal: sinus rhythm Rate: normal - EKG Data 03/25/21 11:54 The EKG is interpreted at 10: 00 Sinus rhythm, 84 bpm. Normal axis, normal P wave axis, left ventricular hypertrophy, QTC 460 ms. Abnormal EKG. Not a STEMI. Appears unchanged when compared to prior EKG from November 2020. This EKG is not a STEMI - Radiology Data Radiology results: pending, report reviewed, image reviewed CHEST 1 VIEW 03/25/2021 9:42 AM INDICATION / CLINICAL INFORMATION: COUGH. COMPARISON: 11/23/20 FINDINGS: SUPPORT DEVICES: None. HEART / MEDIASTINUM: No significant abnormality. LUNGS / PLEURA: No significant pulmonary or pleural abnormality. No pneumothorax. ADDITIONAL FINDINGS: No significant additional findings. IMPRESSION: 1. No acute findings. No change. Signer Name: Alon Durán MD Signed: 03/25/2021 9:22 AM Workstation Name: [facility] NONENHANCED CT SCAN OF THE HEAD: INDICATION / CLINICAL INFORMATION: 66 years Female; worsening AMS/difficulty opening right eye. TECHNIQUE: Routine CT head without contrast. All CT scans at this location are performed using CT dose reduction for ALARA by means of automated exposure control. 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 Encephalomalacia is seen in both cerebral hemispheres in the right frontal lobe (anterior cerebral artery territory, frontal operculum bilaterally, inferior temporal gyri bilaterally and in the occipital lobe on the left side; these remain unchanged; since the last CT scan, low-attenuation areas seen in the greco radiata in the frontal region with the slight enlargement of the right frontal horn since the previous CT scan suggesting this is due to chronic ischemia. Small chronic lacunae seen in the basal ganglia bilaterally. Focal calcification in the right cerebellar hemisphere unchanged. CRANIOCERVICAL JUNCTION: No significant abnormality. ORBITS: No significant abnormality of visualized orbits. SINUSES / MASTOIDS: Fluid accumulation in both maxillary sinuses more on the right side; opacified ethmoid air cells bilaterally; mucosal thickening in the right sphenoid sinus ADDITIONAL FINDINGS: None. 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 Critical care attestation.: If time is entered above; I have spent that time in minutes in the direct care of this critically ill patient, excluding procedure time. ED Disposition Clinical Impression: Dementia, Acute right eye pain, Visual loss Disposition: 02 [facility]ORT TERM [facility]OS[facility] Is pt being admited?: No Does the pt Need Aspirin: No Condition: Stable Referrals: PRIMARY CAREMD [Primary Care Provider] - 3-5 Days
[2021-03-25] MEDS ORDERED: TETRACAINE 0.5% OPHTH SOLN 4ML OD STA (09:23)
[2021-03-25] MEDS ORDERED: FLUORESCEIN 1 MG STRIP OP ONE (09:23)
[2021-03-25] MEDS ORDERED: MORPHINE 4 MG/1 ML INJ IV ONE ×2 (09:33→13:01)
[2021-03-25 10:06] LABS: Basophils # (Auto) 0.1 K/mm3 (0.0-0.1); Basophils % (Auto) 0.8 % (0.0-1.8); Eosinophils # (Auto) 0.2 K/mm3 (0.0-0.4); Lymphocytes # (Auto) 1.5 K/mm3 (1.2-5.4); Lymphocytes % (Auto) 21.6 % (13.4-35.0); Mean Corpuscular HGB Conc 28 % (30-34); Mean Corpuscular Volume 74 fl (79-97); Monocytes # (Auto) 0.6 K/mm3 (0.0-0.8); Monocytes % (Auto) 8.6 % (0.0-7.3); Platelet Count 386 K/mm3 (140-440); Red Blood Count 4.29 M/mm3 (3.65-5.03)
[2021-03-25 10:07] LABS: Hematocrit 31.6 % (30.3-42.9); Red Cell Distribution Width 21.1 % (13.2-15.2)
--- NOTE | 2021-03-25 10:21 | Cat Scan Report ---
NONENHANCED CT SCAN OF THE HEAD: INDICATION / CLINICAL INFORMATION: 66 years Female; worsening AMS/difficulty opening right eye. TECHNIQUE: Routine CT head without contrast. All CT scans at this location are performed using CT dos e reduction for ALARA by means of automated exposure control. 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 Encephalomalaci a is seen in both cerebral hemispheres in the right frontal lobe (anterior cerebral artery territory, frontal operculum bilaterally, inferior temporal gyri bilaterally and in the occipital lobe on the l eft side; these remain unchanged; since the last CT scan, low-attenuation areas seen in the greco ra diata in the frontal region with the slight enlargement of the right frontal horn since the previous CT scan suggesting this is due to chronic ischemia. Small chronic lacunae seen in the basal ganglia b ilaterally. Focal calcification in the right cerebellar hemisphere unchanged. CRANIOCERVICAL JUNCTION: No significant abnormality. ORBITS: No significant abnormality of visualized orbits. SINUSES / MASTOIDS: Fluid accumulation in both maxillary sinuses more on the right side; opacified et hmoid air cells bilaterally; mucosal thickening in the right sphenoid sinus ADDITIONAL FINDINGS: None. 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
[2021-03-25 10:23] LABS: Alanine Aminotransferase 13 units/L (7-56); Albumin 3.8 g/dL (3.9-5); BUN/Creatinine Ratio 14; Blood Urea Nitrogen 13 mg/dL (7-17); Calcium 9.3 mg/dL (8.4-10.2); Hemolysis Index 3
--- NOTE | 2021-03-25 10:27 | XRay Report ---
CHEST 1 VIEW 03/25/2021 9:42 AM INDICATION / CLINICAL INFORMATION: COUGH. COMPARISON: 11/23/20 FINDINGS: SUPPORT DEVICES: None. HEART / MEDIASTINUM: No significant abnormality. LUNGS / PLEURA: No significant pulmonary or pleural abnormality. No pneumothorax. ADDITIONAL FINDINGS: No significant additional findings. IMPRESSION: 1. No acute findings. No change. Signer Name: Alon Durán MD Signed: 03/25/2021 10:22 AM Workstation Name: [id number]
[2021-03-25 10:43] LABS: INR 0.93 (0.87-1.13)
[2021-03-25 10:45] VITALS: BP 146/71
[2021-03-25 12:40] LABS: Bilirubin,Urine NEG (Negative); Blood,Urine NEG (Negative); Color,Urine Yellow (Yellow); Mucus,Urine FEW /HPF; Protein,Urine <15 mg/dL mg/dL (Negative); Urobilinogen,Urine < 2.0 mg/dL (<2.0)
[2021-03-25] MEDS ORDERED: predniSONE 20 MG TAB PO ONE (12:59)
--- NOTE | 2021-03-25 13:33 | Electrocardiograph Report ---
[facility] Test Date: 2021-03-25 Test Time: 10:00:10 Pat Name: ANCA CLARK Department: Room: Gender: F Busperson: GP : 1955 Requested By: MADI BECKMAN Order Number: [id number] Reading MD: Edward Baum Measurements Intervals [place] Rate: 84 P: 62 GA: 143 QRS: -9 QRSD: 90 T: 36 QT: 392 QTc: 463 Interpretive Statements Sinus rhythm Probable inferior infarct, old Compared to ECG 11/23/2020 13:48:13 Sinus rate has increased Electronically Signed On 03-25-2021 13:33:19 EST by Edward Baum
[2021-03-25] MEDS ORDERED: BENZONATATE 100 MG CAP PO ONE (15:03)
== END 2021-03-25 15:48 | disposition short-term general hospital (02) ==
LOC: ED 08:48
DX: F03.90 Unspecified dementia, unspecified severity, without behavioral disturbance, psychotic disturbance, mood disturbance, and anxiety (principal); H57.11 Ocular pain, right eye; H54.7 Unspecified visual loss; Z87.891 Personal history of nicotine dependence
CPT/HCPCS: 36415; 70450; 71045; 80053; 81001; 82140; 82962; 84443; 84484; 85025; 85610; 85652; 93005; 96374; 99285; J2270; 80320; G0480

== ENCOUNTER 2021-05-25 10:02 | Inpatient (IN) | payer MEDICARE ==
[2021-05-25] MEDS ORDERED: SODIUM CHLORIDE 0.9% 500 ML 500 ML IV ONE ×2 (10:40→11:51)
[2021-05-25] MEDS ORDERED: MORPHINE 4 MG/1 ML INJ IV ONE (10:40)
[2021-05-25] MEDS ORDERED: ONDANSETRON 4 MG/2 ML INJ IV ONE (10:40)
--- NOTE | 2021-05-25 10:44 | Emergency Department Report ---
ED General Adult HPI - General Chief complaint: Abdominal Pain Stated complaint: ABD PAIN PUI?: No Time Seen by Provider: 05/25/21 10:30 Source: patient, family, EMS ( EMS documentation not available at time of chart dictation ), RN notes reviewed, old records reviewed Mode of arrival: Stretcher Limitations: No Limitations, Other (Patient is demented) - History of Present Illness Initial comments: The patient was evaluated in the emergency department for symptoms described in the history of present illness. He/she was evaluated in the context of the global COVID-19 pandemic, which necessitated consideration that the patient might be at risk for infection with the virus that causes COVID-19. Institutional protocols and algorithms that pertain to the evaluation of patients at risk for COVID-19 are in a state of rapid change based on information released by regulatory bodies including the CDC and federal and state organizations. These policies and algorithms were followed during the patient's care in the emergency department. Please note that these policies, procedures and recommendations changed on a rapid basis. History obtained by speaking to patient and her , Mr. Corona Gracia; [phone] Past medical history: Vascular dementia, hyperlipidemia, CAD, hypothyroidism, anemia, and aneurysm Patient is a 66-year-old female who is referred to the emergency room by her outpatient finance officer for evaluation of abdominal pain. As per , patient has been having intermittent abdominal pain over the past 4 days. It occasionally moves to the left shoulder it improves with rest as per the , in addition to Tylenol, Mylanta, and supportive medications. As per the , the patient is COVID-19 vaccinated, he denies vomiting, diarrhea, fever, chills, cough and chest pain. The patient was scheduled to have an outpatient routine cardiac nuclear stress test at her outpatient finance officer office earlier on today, when she apparently began to have pain and was thus referred to the emergency room. The patient points to her supraumbilical area. She denies radiation of pain. She indicates that increases with palpation and decreases with rest and position -: days(s) (4) Location: abdomen - Related Data Previous Rx's Medication Instructions Recorded Last Taken Type Aspirin [Aspirin BABY CHEW TAB] 81 mg PO QDAY 30 Days tab.chew 02/15/17 Unknown Rx AtorvaSTATin [Lipitor] 40 mg PO QHS #30 tablet 11/15/17 Unknown Rx Clopidogrel [Plavix] 75 mg PO QDAY 30 Days tablet 02/15/17 Unknown Rx ISOSORBIDE MONOnitrate [Imdur ER] 30 mg PO QDAY 30 Days tablet 02/15/17 Unknown Rx Levothyroxine [Synthroid] 100 mcg PO DAILY@0600 30 Days 02/15/17 Unknown Rx tablet Metoprolol [Lopressor TAB] 25 mg PO BID 30 Days tablet 03/17/17 Unknown Rx Pantoprazole [Protonix TAB] 40 mg PO BID #60 tablet 03/17/17 Unknown Rx HYDROcodone/ACETAMINOPHEN [[place] 1 each PO Q6HR PRN #12 tablet 09/27/17 Unknown Rx 5-325 Tablet] Allergies Allergy/AdvReac Type Severity Reaction Status Date / Time tetracycline Allergy Unknown Unknown Verified 03/25/21 08:52 ED Review of Systems ROS: Stated complaint: ABD PAIN Other details as noted in HPI Constitutional: denies: fever Eyes: denies: eye discharge ENT: denies: epistaxis Respiratory: denies: cough Cardiovascular: denies: chest pain Gastrointestinal: abdominal pain Genitourinary: denies: dysuria Musculoskeletal: denies: back pain Neurological: denies: weakness Psychiatric: anxiety ED Past Medical Hx - Past Medical History Previous Medical History?: Yes Hx Hypertension: Yes Hx CVA: No Hx Heart Attack/AMI: Yes Hx Congestive Heart Failure: No Hx Diabetes: No Hx Arthritis: No Hx Seizures: Yes Hx Asthma: No Hx COPD: Yes Hx Dementia: Yes (early onset) Additional medical history: brain anuerysm. Stents - Surgical History Additional Surgical History: 2 stents placed - Social History Smoking Status: Never Smoker Substance Use Type: None - Medications Home Medications: Home Medications Medication Instructions Recorded Confirmed Last Taken Type Aspirin [Aspirin BABY CHEW TAB] 81 mg PO QDAY 30 Days tab.chew 02/15/17 04/08/17 Unknown Rx AtorvaSTATin [Lipitor] 40 mg PO QHS #30 tablet 02/15/17 04/08/17 Unknown Rx Clopidogrel [Plavix] 75 mg PO QDAY 30 Days tablet 02/15/17 04/08/17 Unknown Rx ISOSORBIDE MONOnitrate [Imdur ER] 30 mg PO QDAY 30 Days tablet 02/15/17 04/08/17 Unknown Rx Levothyroxine [Synthroid] 100 mcg PO DAILY@0600 30 Days 02/15/17 04/08/17 Unknown Rx tablet Metoprolol [Lopressor TAB] 25 mg PO BID 30 Days tablet 03/17/17 04/08/17 Unknown Rx Pantoprazole [Protonix TAB] 40 mg PO BID #60 tablet 03/17/17 04/08/17 Unknown Rx HYDROcodone/ACETAMINOPHEN [[place] 1 each PO Q6HR PRN #12 tablet 09/27/17 Unknown Rx 5-325 Tablet] ED Physical Exam - General Limitations: Other (Patient is demented and a poor historian) General appearance: alert, anxious, obese - Head Head exam: Present: atraumatic, normocephalic - Eye Eye exam: Present: normal appearance, EOMI. Absent: nystagmus - ENT ENT exam: Present: normal exam, normal orophraynx, mucous membranes moist, normal external ear exam - Neck Neck exam: Present: normal inspection, full ROM. Absent: tenderness, meningismus - Respiratory Respiratory exam: Present: normal lung sounds bilaterally. Absent: respiratory distress, wheezes, rales, rhonchi, stridor, decreased breath sounds - Cardiovascular Cardiovascular Exam: Present: normal rhythm, tachycardia. Absent: bradycardia, irregular rhythm, systolic murmur, diastolic murmur, rubs, gallop - GI/Abdominal GI/Abdominal exam: Present: soft, tenderness, other (Epigastric, right upper quadrant tender, supraumbilical area tender). Absent: distended, guarding, rebound, rigid, pulsatile mass - Rectal Rectal exam: Present: normal inspection, normal rectal tone, heme (+) stool, other (Chaperoned by SEBSA BETH). Absent: black stool, bloody stool - Extremities Exam Extremities exam: Present: normal inspection, full ROM, other (2+ pulses noted in the bilateral upper and lower extremities. There is no palpable cord. negative Homans sign. Muscular compartments are soft. The pelvis is stable.). Absent: pedal edema, calf tenderness - Back Exam Back exam: Present: normal inspection, full ROM. Absent: tenderness, CVA tenderness (R), CVA tenderness (L), paraspinal tenderness, vertebral tenderness - Neurological Exam Neurological exam: Present: alert, other (No facial droop. Tongue midline. Extraocular movements intact bilaterally. Facial sensation intact to light touch in V1, V2, V3 distribution bilaterally. 5 and a 5 strength in 4 extremities. Sensation intact to light touch in 4 extremities.) - Psychiatric Psychiatric exam: Present: anxious - Skin Skin exam: Present: warm, dry, intact, normal color. Absent: rash ED Course Vital Signs 05/25/21 05/25/21 05/25/21 10:03 10:29 10:31 Temperature 98 F Pulse Rate 110 H 95 H Respiratory 14 17 15 Rate Blood Pressure Blood Pressure 84/42 [Left] O2 Sat by Pulse 99 99 93 Oximetry O2 Sat by Pulse Oximetry [ Digit-Finger] 05/25/21 05/25/21 05/25/21 10:45 11:01 11:15 Temperature Pulse Rate 93 H 86 83 Respiratory 19 20 17 Rate Blood Pressure 142/67 142/67 142/67 Blood Pressure [Left] O2 Sat by Pulse 97 98 100 Oximetry O2 Sat by Pulse Oximetry [ Digit-Finger] 05/25/21 05/25/21 05/25/21 11:31 11:45 12:01 Temperature Pulse Rate 90 81 96 H Respiratory 17 29 H 27 H Rate Blood Pressure 123/73 132/63 115/51 Blood Pressure [Left] O2 Sat by Pulse 100 100 99 Oximetry O2 Sat by Pulse Oximetry [ Digit-Finger] 05/25/21 13:27 Temperature Pulse Rate Respiratory Rate Blood Pressure Blood Pressure [Left] O2 Sat by Pulse Oximetry O2 Sat by Pulse 99 Oximetry [ Digit-Finger] - Reevaluation(s) Reevaluation #1: 05/25/21 10:58 Differential diagnosis, including but not limited to: Colitis, diverticulitis, renal colic, urinary tract infection, AAA, biliary colic, perforated viscus, constipation, volvulus Assessment and plan: 66-year-old female, with resolved hypotension, blood pressure currently 140/65 mmHg systolic, presenting to the ER with a complaint of nonspecific intermittent abdominal pain. She is tender in her right upper quadrant and supraumbilical region. Establish IV access, obtain CT scan of the abdomen pelvis, EKG, urinalysis and appropriate laboratory studies. Treat her pain and symptoms. Reassess. I discussed this with the patient and her significant other. They articulated understanding. They are agreeable to the plan of care 05/25/21 12:38 Patient is found to have a microcytic anemia, with brown stool that is guaiac positive. As per review of old medical records, does have history of AVM. She is no bright red blood per rectum. Suspect that lactic acidosis is likely a type II lactic acidosis, likely compounded by anemia. Protonix ordered. GI consultation requested. Blood pressure improved. CT scan abdomen pelvis pending. 05/25/21 13:26 Family is agreeable to admission and packed red blood cell transfusion. [facility] physician, Dr. Angie Sanchez to admit to [facility] GI consulted, please reference consultative note. 05/25/21 13:42 CT scan abdomen pelvis negative for acute findings. Hospital physician updated. - Consultations Consultation #1: 05/25/21 12:54 Discussed the patient's history, physical, laboratory studies imaging studies and clinical impression with gastroenterology on-call, Dr Epi Cleary He is in agreement with the plan of care, and GI will follow in consultation - EJ/Peripheral Line Other Time Out Performed: Yes Indications: nurses unable to establis Skin Cleansed in Sterile Fashion: Yes Size: 20 Dressing Placed: Tegaderm Patient Tolerated Procedure: well Additional Comments: Chaperoned by nurse SEBAS BETH Left anterior breast is prepped and draped in typical aseptic fashion. 20-gauge IV is inserted by myself into the left anterior breast with 1 attempt with no complications. Nursing team unable to obtain peripheral IV access. IV nurse unable to obtain peripheral IV access. Patient's upper extremities are evaluated by myself, do not appreciate any anatomy suitable to support peripheral IVs. EJ's also not appreciated at this time. Patient's at the bedside and provides consent for IV placement - Pulse Oximetry Interpretation Digit-Finger Initial Pulse Oximetry Readin O2 Sat by Pulse Oximetry: 99 Actions Taken: none ED Medical Decision Making - Lab Data Result diagrams: 05/25/21 11:14 05/25/21 11:14 Vital Signs 05/25/21 05/25/21 05/25/21 10:03 10:29 10:31 Temperature 98 F Pulse Rate 110 H 95 H Respiratory 14 17 15 Rate Blood Pressure 84/42 [Left] O2 Sat by Pulse 99 99 93 Oximetry - EKG Data -: EKG Interpreted by Co EKG shows normal: sinus rhythm Rate: normal - EKG Data 05/25/21 10:57 The EKG is interpreted at 10: 52 Sinus rhythm, rate 84 bpm. Normal P wave axis, borderline leftward axis deviation, motion artifact in the lateral leads, QTC 4 5 0 ms. Q waves noted in the inferior leads. This is an abnormal EKG. This is not a STEMI. This appears to be unchanged from prior EKG from cardiology office. - Radiology Data Radiology results: pending, report reviewed, image reviewed CT ABDOMEN AND PELVIS WITH CONTRAST INDICATION / CLINICAL INFORMATION: acute abd pain. TECHNIQUE: Axial CT images were obtained through the abdomen and pelvis after 100 cc of Omnipaque 300 IV contrast. Sagittal and coronal reformatted images. All CT scans at this location are performed using CT dose reduction for ALARA by means of automated exposure control. COMPARISON: 02/18/2021 FINDINGS: LOWER CHEST: No significant abnormality. LIVER: Stable mild hepatic steatosis. No enlargement or focal lesion. GALLBLADDER: No significant abnormality. BILE DUCTS: No significant abnormality. PANCREAS: No significant abnormality. SPLEEN: No significant abnormality. ADRENALS: No significant abnormality. RIGHT KIDNEY and URETER: No acute abnormality. Stable multifocal cortical scarring. LEFT KIDNEY and URETER: No acute abnormality. Stable multifocal cortical scarring. STOMACH and SMALL BOWEL: No significant abnormality. No evidence for small bowel obstruction. COLON: Mild diverticulosis is noted in the sigmoid region. No acute inflammation or obstruction. APPENDIX: Not identified. PERITONEUM: No free fluid. No free air. No fluid collection. LYMPH NODES: No significant adenopathy. AORTA and ARTERIES: Moderate atherosclerotic calcification without acute abnormality. IVC and VEINS: No significant abnormality. URINARY BLADDER: No significant abnormality. REPRODUCTIVE ORGANS: Stable hysterectomy changes. ADDITIONAL FINDINGS: None. S KELETAL SYSTEM: No significant abnormality. IMPRESSION: No acute process is identified in the abdomen or pelvis. Mild hepatic steatosis. Multifocal cortical scarring in the bilateral kidneys. No hydronephrosis. Mild sigmoid diverticulosis without evidence of diverticulitis. Signer Name: Zeeshan Nixon Jr, MD Signed: 05/25/2021 12:29 PM Workstation Name: [id number] Critical care attestation.: If time is entered above; I have spent that time in minutes in the direct care of this critically ill patient, excluding procedure time. ED Disposition Clinical Impression: Acute abdominal pain, Microcytic anemia, Guaiac positive stools, Dementia Disposition: 09 ADMITTED INPATIENT Is pt being admited?: Yes Does the pt Need Aspirin: No Condition: Fair Instructions: Abdominal Pain (ED) Referrals: PRIMARY CAREMD [Primary Care Provider] - 3-5 Days
[2021-05-25] MEDS ORDERED: SODIUM CHLORIDE 0.9% 500 ML 1,000 ML IV ONE (10:49)
[2021-05-25 11:33] LABS: INR 0.92 (0.87-1.13)
[2021-05-25 11:40] LABS: Mean Corpuscular HGB Conc 27 % (30-34); Platelet Count 410 K/mm3 (140-440); Red Blood Count 3.13 M/mm3 (3.65-5.03)
[2021-05-25 11:44] LABS: Hematocrit 20.6 % (30.3-42.9); Hemoglobin 5.6 gm/dl (10.1-14.3); Mean Corpuscular Volume 66 fl (79-97)
[2021-05-25 11:45] LABS: Red Cell Distribution Width 22.4 % (13.2-15.2)
[2021-05-25 11:49] LABS: Alanine Aminotransferase 12 units/L (7-56); Albumin 4.2 g/dL (3.9-5); BUN/Creatinine Ratio 15; Blood Urea Nitrogen 15 mg/dL (7-17); Calcium 9.5 mg/dL (8.4-10.2); Hemolysis Index 0
[2021-05-25 11:53] LABS: Bilirubin,Direct < 0.2 mg/dL (0-0.2)
[2021-05-25 12:10] LABS: Eosinophils % (Manual) 0 % (0.0-4.3); Total Cells Counted 100
[2021-05-25 12:11] LABS: Anisocytosis 2+; Hypochromasia 3+; Platelet Estimate Consistent w Auto
[2021-05-25] MEDS ORDERED: SODIUM CHLORIDE IRRI 500 ML 500 ML IR ONE (12:36)
[2021-05-25] MEDS ORDERED: PANTOPRAZOLE 40 MG INJ IV ONE (12:45)
--- NOTE | 2021-05-25 13:34 | Cat Scan Report ---
CT ABDOMEN AND PELVIS WITH CONTRAST INDICATION / CLINICAL INFORMATION: acute abd pain. TECHNIQUE: Axial CT images were obtained through the abdomen and pelvis after 100 cc of Omnipaque 300 IV contras t. Sagittal and coronal reformatted images. All CT scans at this location are performed using CT dose reduction for ALARA by means of automated exposure control. COMPARISON: 02/18/2021 FINDINGS: LOWER CHEST: No significant abnormality. LIVER: Stable mild hepatic steatosis. No enlargement or focal lesion. GALLBLADDER: No significant abnormality. BILE DUCTS: No significant abnormality. PANCREAS: No significant abnormality. SPLEEN: No significant abnormality. ADRENALS: No significant abnormality. RIGHT KIDNEY and URETER: No acute abnormality. Stable multifocal cortical scarring. LEFT KIDNEY and URETER: No acute abnormality. Stable multifocal cortical scarring. STOMACH and SMALL BOWEL: No significant abnormality. No evidence for small bowel obstruction. COLON: Mild diverticulosis is noted in the sigmoid region. No acute inflammation or obstruction. APPENDIX: Not identified. PERITONEUM: No free fluid. No free air. No fluid collection. LYMPH NODES: No significant adenopathy. AORTA and ARTERIES: Moderate atherosclerotic calcification without acute abnormality. IVC and VEINS: No significant abnormality. URINARY BLADDER: No significant abnormality. REPRODUCTIVE ORGANS: Stable hysterectomy changes. ADDITIONAL FINDINGS: None. SKELETAL SYSTEM: No significant abnormality. IMPRESSION: No acute process is identified in the abdomen or pelvis. Mild hepatic steatosis. Multifocal cortical scarring in the bilateral kidneys. No hydronephrosis. Mild sigmoid diverticulosis without evidence of diverticulitis. Signer Name: Zeeshan Nixon Jr, MD Signed: 05/25/2021 1:29 PM Workstation Name: [id number]
--- NOTE | 2021-05-25 14:45 | History and Physical Report ---
History of Present Illness Date of examination: 05/25/21 Date of admission: May 25, 2021 Chief complaint: Dark melanotic stools for 2 days History of present illness: 66-year-old female with history of coronary artery disease, hypothyroidism, hypertension and GERD on Plavix and aspirin presents with epigastric pain and black stools. Patient was due for stress test today as outpatient. Because of epigastric pain and dark stools patient was referred to the emergency room for further evaluation. Patient was guaiac positive. Patient has been having intermittent epigastric pain for the past 4 days. Patient is Covid vaccinated. Did not take any NSAIDS - Past Medical History --Previous Medical History?: Yes --Hypertension: Yes --Heart Attack/AMI: Yes --Seizures: Yes --COPD: Yes --Dementia: Yes (early onset) --Additional medical history: brain anuerysm. Stents - Surgical History --2 stents placed - Social History --Never Smoker --Substance Use Type: None - Family history --Htn Review of Systems ROS: Stated complaint: ABD PAIN Other details as noted in HPI Constitutional: denies: fever Eyes: denies: eye discharge ENT: denies: epistaxis Respiratory: denies: cough Cardiovascular: denies: chest pain Gastrointestinal: abdominal pain Genitourinary: denies: dysuria Musculoskeletal: denies: back pain Neurological: denies: weakness Psychiatric: anxiety Medications and Allergies Allergies Allergy/AdvReac Type Severity Reaction Status Date / Time tetracycline Allergy Unknown Unknown Verified 03/25/21 08:52 Home Medications Medication Instructions Recorded Confirmed Last Taken Type Aspirin [Aspirin BABY CHEW TAB] 81 mg PO QDAY 30 Days tab.chew 02/15/17 04/08/17 Unknown Rx AtorvaSTATin [Lipitor] 40 mg PO QHS #30 tablet 02/15/17 04/08/17 Unknown Rx Clopidogrel [Plavix] 75 mg PO QDAY 30 Days tablet 02/15/17 04/08/17 Unknown Rx ISOSORBIDE MONOnitrate [Imdur ER] 30 mg PO QDAY 30 Days tablet 02/15/17 04/08/17 Unknown Rx Levothyroxine [Synthroid] 100 mcg PO DAILY@0600 30 Days 02/15/17 04/08/17 Unknown Rx tablet Metoprolol [Lopressor TAB] 25 mg PO BID 30 Days tablet 03/17/17 04/08/17 Unknown Rx Pantoprazole [Protonix TAB] 40 mg PO BID #60 tablet 03/17/17 04/08/17 Unknown Rx HYDROcodone/ACETAMINOPHEN [[place] 1 each PO Q6HR PRN #12 tablet 09/27/17 Unknown Rx 5-325 Tablet] Exam - Constitutional Vitals: Temp Pulse Resp BP Pulse Ox 98 F 82 17 121/58 99 05/25/21 10:03 05/25/21 14:15 05/25/21 14:15 05/25/21 14:15 05/25/21 14:15 General appearance: Present: no acute distress, well-nourished - EENT Eyes: Present: PERRL ENT: hearing intact, clear oral mucosa - Neck Neck: Present: supple, normal ROM - Respiratory Respiratory effort: normal Respiratory: bilateral: CTA - Cardiovascular Heart rate: 110 Rhythm: regular Heart Sounds: Present: S1 & S2. Absent: rub, click - Extremities Extremities: no ischemia, pulses intact, pulses symmetrical, No edema Peripheral Pulses: within normal limits - Abdominal General gastrointestinal: Present: soft, tender, non-distended, normal bowel sounds Localized gastrointestinal: tender: diffuse Female genitourinary: Present: normal - Integumentary Integumentary: Present: clear, warm, dry - Musculoskeletal Musculoskeletal: gait normal, strength equal bilaterally - Psychiatric Psychiatric: appropriate mood/affect, intact judgment & insight - Neurologic Neurologic: CNII-XII intact, moves all extremities - Allied Health Allied health notes reviewed: nursing, case management HEART Score - HEART Score Troponin: Troponin T < 0.010 ng/mL (0.00-0.029) 05/25/21 11:14 Results - Labs CBC & Chem 7: 05/25/21 23:18 05/25/21 11:14 Labs: Laboratory Last Values WBC 9.1 K/mm3 (4.5-11.0) 05/25/21 11:14 RBC 3.13 M/mm3 (3.65-5.03) L 05/25/21 11:14 Hgb 5.6 gm/dl (10.1-14.3) L* 05/25/21 11:14 Hct 20.6 % (30.3-42.9) L 05/25/21 11:14 MCV 66 fl (79-97) L 05/25/21 11:14 MCH 18 pg (28-32) L 05/25/21 11:14 MCHC 27 % (30-34) L 05/25/21 11:14 RDW 22.4 % (13.2-15.2) H 05/25/21 11:14 Plt Count 410 K/mm3 (140-440) 05/25/21 11:14 Lymph % (Auto) Mechanics Supervisor 05/25/21 11:14 [place] % (Auto) Mechanics Supervisor 05/25/21 11:14 Eos % (Auto) Mechanics Supervisor 05/25/21 11:14 Baso % (Auto) Mechanics Supervisor 05/25/21 11:14 Lymph # (Auto) Mechanics Supervisor 05/25/21 11:14 [place] # (Auto) Mechanics Supervisor 05/25/21 11:14 Eos # (Auto) Mechanics Supervisor 05/25/21 11:14 Baso # (Auto) Mechanics Supervisor 05/25/21 11:14 Add Manual Diff Complete 05/25/21 11:14 Total Counted 100 05/25/21 11:14 Seg Neutrophils % Mechanics Supervisor 05/25/21 11:14 Seg Neuts % (Manual) 88.0 % (40.0-70.0) H 05/25/21 11:14 Band Neutrophils % 0 % 05/25/21 11:14 Lymphocytes % (Manual) 6.0 % (13.4-35.0) L 05/25/21 11:14 Reactive Lymphs % (Man) 0 % 05/25/21 11:14 Monocytes % (Manual) 2.0 % (0.0-7.3) 05/25/21 11:14 Eosinophils % (Manual) 0 % (0.0-4.3) 05/25/21 11:14 Basophils % (Manual) 4.0 % (0.0-1.8) H 05/25/21 11:14 Metamyelocytes % 0 % 05/25/21 11:14 Myelocytes % 0 % 05/25/21 11:14 Promyelocytes % 0 % 05/25/21 11:14 Blast Cells % 0 % 05/25/21 11:14 Nucleated RBC % Not Reportable 05/25/21 11:14 Seg Neutrophils # Mechanics Supervisor 05/25/21 11:14 Seg Neutrophils # Man 8.0 K/mm3 (1.8-7.7) H 05/25/21 11:14 Band Neutrophils # 0.0 K/mm3 05/25/21 11:14 Lymphocytes # (Manual) 0.5 K/mm3 (1.2-5.4) L 05/25/21 11:14 Abs React Lymphs (Man) 0.0 K/mm3 05/25/21 11:14 Monocytes # (Manual) 0.2 K/mm3 (0.0-0.8) 05/25/21 11:14 Eosinophils # (Manual) 0.0 K/mm3 (0.0-0.4) 05/25/21 11:14 Basophils # (Manual) 0.4 K/mm3 (0.0-0.1) H 05/25/21 11:14 Metamyelocytes # 0.0 K/mm3 05/25/21 11:14 Myelocytes # 0.0 K/mm3 05/25/21 11:14 Promyelocytes # 0.0 K/mm3 05/25/21 11:14 Blast Cells # 0.0 K/mm3 05/25/21 11:14 WBC Morphology Not Reportable 05/25/21 11:14 Hypersegmented Neuts Not Reportable 05/25/21 11:14 Hyposegmented Neuts Not Reportable 05/25/21 11:14 Hypogranular Neuts Not Reportable 05/25/21 11:14 Smudge Cells Not Reportable 05/25/21 11:14 Toxic Granulation Not Reportable 05/25/21 11:14 Toxic Vacuolation Not Reportable 05/25/21 11:14 Dohle Bodies Not Reportable 05/25/21 11:14 Pelger-Huet Anomaly Not Reportable 05/25/21 11:14 Jacinta Rods Not Reportable 05/25/21 11:14 Platelet Estimate Consistent w auto 05/25/21 11:14 Clumped Platelets Not Reportable 05/25/21 11:14 Plt Clumps, EDTA Not Reportable 05/25/21 11:14 Large Platelets Not Reportable 05/25/21 11:14 Giant Platelets Not Reportable 05/25/21 11:14 Platelet Satelliting Not Reportable 05/25/21 11:14 Plt Morphology Comment Not Reportable 05/25/21 11:14 RBC Morphology Not Reportable 05/25/21 11:14 Dimorphic RBCs Not Reportable 05/25/21 11:14 Polychromasia Few 05/25/21 11:14 Hypochromasia 3+ 05/25/21 11:14 Poikilocytosis Not Reportable 05/25/21 11:14 Anisocytosis 2+ 05/25/21 11:14 Microcytosis 1+ 05/25/21 11:14 Macrocytosis Not Reportable 05/25/21 11:14 Spherocytes Not Reportable 05/25/21 11:14 Pappenheimer Bodies Not Reportable 05/25/21 11:14 Sickle Cells Not Reportable 05/25/21 11:14 Target Cells Not Reportable 05/25/21 11:14 Tear Drop Cells Not Reportable 05/25/21 11:14 Ovalocytes Not Reportable 05/25/21 11:14 Helmet Cells Not Reportable 05/25/21 11:14 [place] Bodies Not Reportable 05/25/21 11:14 [place] Rings Not Reportable 05/25/21 11:14 [place] Cells Not Reportable 05/25/21 11:14 Bite Cells Not Reportable 05/25/21 11:14 Crenated Cell Not Reportable 05/25/21 11:14 Elliptocytes Not Reportable 05/25/21 11:14 Acanthocytes (Spur) Not Reportable 05/25/21 11:14 Rouleaux Not Reportable 05/25/21 11:14 Hemoglobin C Crystals Not Reportable 05/25/21 11:14 Schistocytes Not Reportable 05/25/21 11:14 Malaria parasites Not Reportable 05/25/21 11:14 [place] Bodies Not Reportable 05/25/21 11:14 Hem Pathologist Commnt No 05/25/21 11:14 PT 13.4 Sec. (12.2-14.9) 05/25/21 11:14 INR 0.92 (0.87-1.13) 05/25/21 11:14 Sodium 139 mmol/L (137-145) 05/25/21 11:14 Potassium 4.4 mmol/L (3.6-5.0) 05/25/21 11:14 Chloride 105.6 mmol/L (98-107) 05/25/21 11:14 Carbon Dioxide 17 mmol/L (22-30) L 05/25/21 11:14 Anion Gap 21 mmol/L 05/25/21 11:14 BUN 15 mg/dL (7-17) 05/25/21 11:14 Creatinine 1.0 mg/dL (0.6-1.2) 05/25/21 11:14 Estimated GFR > 60 ml/min 05/25/21 11:14 BUN/Creatinine Ratio 15 % 05/25/21 11:14 Glucose 111 mg/dL (65-100) H 05/25/21 11:14 Lactic Acid 3.70 mmol/L (0.7-2.0) H* 05/25/21 12:18 Calcium 9.5 mg/dL (8.4-10.2) 05/25/21 11:14 Magnesium 2.50 mg/dL (1.7-2.3) H 05/25/21 11:14 Total Bilirubin 0.30 mg/dL (0.1-1.2) 05/25/21 11:14 Direct Bilirubin < 0.2 mg/dL (0-0.2) 05/25/21 11:14 Indirect Bilirubin 0.1 mg/dL 05/25/21 11:14 AST 12 units/L (5-40) 05/25/21 11:14 ALT 12 units/L (7-56) 05/25/21 11:14 Alkaline Phosphatase 124 units/L (35-129) 05/25/21 11:14 Total Creatine Kinase 99 units/L (30-135) 05/25/21 11:14 Troponin T < 0.010 ng/mL (0.00-0.029) 05/25/21 11:14 Total Protein 7.5 g/dL (6.3-8.2) 05/25/21 11:14 Albumin 4.2 g/dL (3.9-5) 05/25/21 11:14 Albumin/Globulin Ratio 1.3 % 05/25/21 11:14 Lipase 63 units/L (13-60) H 05/25/21 11:14 Blood Type A POSITIVE 05/25/21 12:18 Antibody Screen Negative 05/25/21 12:18 Crossmatch See Detail 05/25/21 12:18 Short CBC 05/25/21 05/25/21 05/25/21 Range/Units 11:14 14:56 23:18 WBC 9.1 (4.5-11.0) K/mm3 Hgb 5.6 L* 5.2 L* 6.8 L (10.1-14.3) gm/dl Hct 20.6 L 19.0 L* 22.1 L (30.3-42.9) % Plt Count 410 (140-440) K/mm3 BMP 05/25/21 11:14 Sodium 139 Potassium 4.4 Chloride 105.6 Carbon Dioxide 17 L BUN 15 Creatinine 1.0 Glucose 111 H Calcium 9.5 Cardiac Enzymes 05/25/21 Range/Units 11:14 Total Creatine Kinase 99 (30-135) units/L Troponin T < 0.010 (0.00-0.029) ng/mL Liver Function 05/25/21 Range/Units 11:14 Total Bilirubin 0.30 (0.1-1.2) mg/dL Direct Bilirubin < 0.2 (0-0.2) mg/dL AST 12 (5-40) units/L ALT 12 (7-56) units/L Alkaline Phosphatase 124 (35-129) units/L Albumin 4.2 (3.9-5) g/dL Urine 05/25/21 Range/Units 14:36 Urine Color Yellow (Yellow) Urine pH 6.0 (5.0-7.0) Ur Specific [place] 1.047 H (1.003-1.030) Urine Protein <15 mg/dl (Negative) mg/dL Urine Glucose (UA) Neg (Negative) mg/dL - Imaging and Cardiology CT scan - abdomen: report reviewed Imaging and Cardiology: Abdomen and pelvis CT scan No acute process identified in the abdomen or pelvis Assessment and Plan Advance Directives: Yes - Patient Problems (1) Acute blood loss anemia Current Visit: Yes Status: Acute Plan to address problem: Patient to be transfused 2 units of packed red blood cells and if necessary the third unit IV Protonix initiated GI consult requested (2) GI bleed Current Visit: Yes Status: Acute Qualifiers: GI bleed type/associated pathology: unspecified gastrointestinal hemorrhage type Qualified Code(s): K92.2 - Gastrointestinal hemorrhage, unspecified Plan to address problem: IV Protonix and IV fluids Transfused 2 units of packed red blood cells GI consult requested (3) CAD (coronary artery disease) Current Visit: No Status: Chronic Qualifiers: Coronary Disease-Associated Artery/Lesion type: [place] artery [place] vs. transplanted heart: [place] heart Associated angina: with unspecified angina Plan to address problem: We will hold the Plavix and aspirin for the time being (4) HLD (hyperlipidemia) Current Visit: No Status: Chronic Qualifiers: Hyperlipidemia type: mixed hyperlipidemia Qualified Code(s): E78.2 - Mixed hyperlipidemia Plan to address problem: Hold the statins for the time being Patient is n.p.o. (5) Hypothyroidism (acquired) Current Visit: Yes Status: Chronic Plan to address problem: We will hold the Synthroid for 1 day and resume Check TSH (6) Hypertension Current Visit: Yes Status: Chronic Qualifiers: Hypertension type: primary hypertension Qualified Code(s): I10 - Essential (primary) hypertension Plan to address problem: Patient is hypotensive Hold antihypertensives (7) DVT prophylaxis Current Visit: No Status: Acute Plan to address problem: On SCDs and GI prophylaxis (8) Advance care planning Current Visit: Yes Status: Acute Plan to address problem: Disease education conducted, care plan discussed, diagnosis discussed, prognosis discussed. Patient is full code. Patient and family acknowledges understanding and agreement with care plan. +30 minutes.
[2021-05-25] MEDS ORDERED: METOCLOPRAMIDE 10 MG/2 ML INJ IV PRN (15:00)
[2021-05-25] MEDS ORDERED: MORPHINE 2 MG/1 ML INJ IV PRN (15:00)
[2021-05-25] MEDS ORDERED: ACETAMINOPHEN 325 MG TAB PO PRN (15:00)
[2021-05-25] MEDS ORDERED: ONDANSETRON 4 MG/2 ML INJ IV PRN (15:00)
[2021-05-25 15:06] LABS: Bilirubin,Urine NEG (Negative); Blood,Urine NEG (Negative); Color,Urine Yellow (Yellow); Mucus,Urine FEW /HPF; Protein,Urine <15 mg/dL mg/dL (Negative); Urobilinogen,Urine < 2.0 mg/dL (<2.0)
[2021-05-25] MEDS ORDERED: SODIUM CHLORIDE 0.9% 500 ML 500 ML ONE (15:07)
[2021-05-25 15:23] LABS: Hemoglobin 5.2 gm/dl (10.1-14.3)
--- NOTE | 2021-05-25 16:39 | Consultation ---
History of Present Illness - Reason for Consult Consult date: 05/25/21 Anemia Requesting physician: OCTAVIA MIRZA - History of Present Illness Ms. Patel is a 66-year-old woman on whom I have been consulted for anemia and abdominal pain. She has a history of stroke and coronary artery disease. For the last 4 days, she has had been having intermittent left upper quadrant crampy abdominal pain usually occurring in the evenings and lasting for 40 to 50 minutes. There is no associated nausea or vomiting. She was at her metal tile lather's office today for routine stress test and had abdominal pain and was sent to the emergency room for evaluation. Here, she was found to be profoundly anemic with a hemoglobin of 5.6 and MCV of 66 with Hemoccult positive brown stool. GI consultation is obtained. Patient states bowel movements are regular and either occur every day to every other day. There is been no abiola GI bleed. She has gained weight recently and has a good appetite. Of note, patient was here in March 2017 with profound microcytic anemia and transfused. 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 Patient was to have a pill camera done as an outpatient but it was not done. I spoke with the patient's son by phone and he states that she had similar episode less than a year ago in [place] and was seen at [facility]. She also had abdominal pain at that time and was also profoundly anemic. She underwent an upper endoscopy which was unrevealing, and colonoscopy and pill camera were once again recommended as an outpatient but not done. No chest pain or shortness of breath. Past History Past Medical History: CAD (with stents in 02/20/2017 for STEMI) Past Surgical History: bowel surgery (Right hemicolectomy, likely diverticular), Other (Colonoscopy and EGD - 03/2017) Social history: no significant social history Family history: no significant family history Medications and Allergies Allergies Allergy/AdvReac Type Severity Reaction Status Date / Time tetracycline Allergy Unknown Unknown Verified 03/25/21 08:52 Home Medications Medication Instructions Recorded Confirmed Last Taken Type Aspirin [Aspirin BABY CHEW TAB] 81 mg PO QDAY 30 Days tab.chew 02/15/17 04/08/17 Unknown Rx AtorvaSTATin [Lipitor] 40 mg PO QHS #30 tablet 02/15/17 04/08/17 Unknown Rx Clopidogrel [Plavix] 75 mg PO QDAY 30 Days tablet 02/15/17 04/08/17 Unknown Rx ISOSORBIDE MONOnitrate [Imdur ER] 30 mg PO QDAY 30 Days tablet 02/15/17 04/08/17 Unknown Rx Levothyroxine [Synthroid] 100 mcg PO DAILY@0600 30 Days 02/15/17 04/08/17 Unknown Rx tablet Metoprolol [Lopressor TAB] 25 mg PO BID 30 Days tablet 03/17/17 04/08/17 Unknown Rx Pantoprazole [Protonix TAB] 40 mg PO BID #60 tablet 03/17/17 04/08/17 Unknown Rx HYDROcodone/ACETAMINOPHEN [[place] 1 each PO Q6HR PRN #12 tablet 09/27/17 Unknown Rx 5-325 Tablet] Active Meds: Active Medications Acetaminophen (Acetaminophen 325 Mg Tab) 650 mg PO Q4H PRN PRN Reason: Pain MILD(1-3)/Fever >100.5/BRAND Sodium Chloride (Nacl 0.9% 1000 Ml) 1,000 mls @ 42 mls/hr IV DIRECT ODALIS Pantoprazole Sodium 80 mg/ (Sodium Chloride) 100 mls @ 10 mls/hr IV DIRECT ODALIS Metoclopramide HCl (Metoclopramide 10 Mg/2 Ml Inj) 10 mg IV Q6H PRN PRN Reason: Nausea And Vomiting Morphine Sulfate (Morphine 2 Mg/1 Ml Inj) 2 mg IV Q4H PRN PRN Reason: Pain, Moderate (4-6) Ondansetron HCl (Ondansetron 4 Mg/2 Ml Inj) 4 mg IV Q8H PRN PRN Reason: Nausea And Vomiting Sodium Chloride (Sodium Chloride 0.9% 10 Ml Flush Syringe) 10 ml IV BID ODALIS Sodium Chloride (Sodium Chloride 0.9% 10 Ml Flush Syringe) 10 ml IV PRN PRN PRN Reason: LINE FLUSH Review of Systems All systems: negative (As per HPI) Exam - Constitutional Vitals: Temp Pulse Resp BP Pulse Ox 98.2 F 73 15 134/55 95 05/25/21 15:30 05/25/21 16:11 05/25/21 16:11 05/25/21 16:11 05/25/21 16:11 General appearance: Present: no acute distress - EENT Eyes: Present: PERRL, EOM intact ENT: hearing intact - Respiratory Respiratory effort: normal Respiratory: bilateral: CTA (Anteriorly) - Cardiovascular Rhythm: regular Heart Sounds: Present: S1 & S2 - Extremities Extremities: No edema - Abdominal General gastrointestinal: Present: soft, tender (Mild epigastric and right upper quadrant) - Rectal Rectal Exam: stool brown (Per ER physician, and occult blood positive.) Results - Labs CBC & Chem 7: 05/25/21 14:56 05/25/21 11:14 Labs: Abnormal lab results 05/25/21 05/25/21 05/25/21 Range/Units 11:14 11:14 11:14 RBC 3.13 L (3.65-5.03) M/mm3 Hgb 5.6 L* (10.1-14.3) gm/dl Hct 20.6 L (30.3-42.9) % MCV 66 L (79-97) fl MCH 18 L (28-32) pg MCHC 27 L (30-34) % RDW 22.4 H (13.2-15.2) % Seg Neuts % (Manual) 88.0 H (40.0-70.0) % Lymphocytes % (Manual) 6.0 L (13.4-35.0) % Basophils % (Manual) 4.0 H (0.0-1.8) % Seg Neutrophils # Man 8.0 H (1.8-7.7) K/mm3 Lymphocytes # (Manual) 0.5 L (1.2-5.4) K/mm3 Basophils # (Manual) 0.4 H (0.0-0.1) K/mm3 Carbon Dioxide 17 L (22-30) mmol/L Glucose 111 H (65-100) mg/dL Lactic Acid 3.50 H* (0.7-2.0) mmol/L Magnesium (1.7-2.3) mg/dL Lipase 63 H (13-60) units/L Ur Specific [place] (1.003-1.030) Crossmatch 05/25/21 05/25/21 05/25/21 Range/Units 11:14 12:18 12:18 RBC (3.65-5.03) M/mm3 Hgb (10.1-14.3) gm/dl Hct (30.3-42.9) % MCV (79-97) fl MCH (28-32) pg MCHC (30-34) % RDW (13.2-15.2) % Seg Neuts % (Manual) (40.0-70.0) % Lymphocytes % (Manual) (13.4-35.0) % Basophils % (Manual) (0.0-1.8) % Seg Neutrophils # Man (1.8-7.7) K/mm3 Lymphocytes # (Manual) (1.2-5.4) K/mm3 Basophils # (Manual) (0.0-0.1) K/mm3 Carbon Dioxide (22-30) mmol/L Glucose (65-100) mg/dL Lactic Acid 3.70 H* (0.7-2.0) mmol/L Magnesium 2.50 H (1.7-2.3) mg/dL Lipase (13-60) units/L Ur Specific [place] (1.003-1.030) Crossmatch See Detail 05/25/21 05/25/21 Range/Units 14:36 14:56 RBC (3.65-5.03) M/mm3 Hgb 5.2 L* (10.1-14.3) gm/dl Hct 19.0 L* (30.3-42.9) % MCV (79-97) fl MCH (28-32) pg MCHC (30-34) % RDW (13.2-15.2) % Seg Neuts % (Manual) (40.0-70.0) % Lymphocytes % (Manual) (13.4-35.0) % Basophils % (Manual) (0.0-1.8) % Seg Neutrophils # Man (1.8-7.7) K/mm3 Lymphocytes # (Manual) (1.2-5.4) K/mm3 Basophils # (Manual) (0.0-0.1) K/mm3 Carbon Dioxide (22-30) mmol/L Glucose (65-100) mg/dL Lactic Acid (0.7-2.0) mmol/L Magnesium (1.7-2.3) mg/dL Lipase (13-60) units/L Ur Specific [place] 1.047 H (1.003-1.030) Crossmatch - Imaging and Cardiology CT scan - abdomen: report reviewed (Normal except for sigmoid diverticulosis) Assessment and Plan 1. Abdominal painetiology unclear. Interestingly, patient had abdominal pain during [place] visit when she was anemic. Pain may be due to biliary colic, but an ischemic etiology is also a possibility, that manifests itself when she is anemic. -Monitor for resolution as she is transfuse -We will get biliary ultrasound to rule out gallstones 2. Microcytic anemia -profound. This has been recurrent since at least 2017. Patient may well have small bowel AVMs that are responsible. She is currently on Plavix and aspirin. Eliminating or minimizing anticoagulants could be beneficial in preventing recurrent anemia. We will consider repeat endoscopic evaluation during this admission, after patient is transfused. -Cardiac evaluation to try and minimize anticoagulation -Transfuse -Empiric PPI -We will consider endoscopic evaluation in 2 days. Subsequently, patient may well need PillCam as outpatient
[2021-05-25] MEDS: PANTOPRAZOLE 80 MG in SODIUM CHLORIDE 0.9% 100 ML IV SCH (18:45)
[2021-05-25] MEDS: SODIUM CHLORIDE 0.9% 1000 ML 1,000 ML IV SCH (18:46)
[2021-05-25 23:52] LABS: Hematocrit 22.1 % (30.3-42.9); Hemoglobin 6.8 gm/dl (10.1-14.3)
[2021-05-26] MEDS ORDERED: LORazepam 2 MG/ML VIAL IV ONE ×2 (01:11→22:00)
[2021-05-26] MEDS: PANTOPRAZOLE 80 MG in SODIUM CHLORIDE 0.9% 100 ML IV SCH (04:44)
[2021-05-26] MEDS ORDERED: SODIUM CHLORIDE 0.9% 500 ML 500 ML IV NR ×2 (06:59→07:46)
[2021-05-26 08:03] LABS: Hematocrit 22.6 % (30.3-42.9); Hemoglobin 6.7 gm/dl (10.1-14.3)
[2021-05-26 08:17] LABS: Alanine Aminotransferase 11 units/L (7-56); Albumin 3.7 g/dL (3.9-5); BUN/Creatinine Ratio 10; Blood Urea Nitrogen 10 mg/dL (7-17); Calcium 8.8 mg/dL (8.4-10.2); Hemolysis Index 0
[2021-05-26] MEDS: PANTOPRAZOLE 40 MG INJ IV SCH ×2 (09:55→22:39)
--- NOTE | 2021-05-26 11:47 | Electrocardiograph Report ---
[facility] Test Date: 2021-05-25 Test Time: 10:52:58 Pat Name: ANCA CLARK Department: Room: [facility] Gender: F Vp Marketing: IGNCAIA : 1955 Requested By: OCTAVIA MIRZA Order Number: [id number] Reading MD: Carlos Manuel Deleon Measurements Intervals [place] Rate: 84 P: 53 DC: 141 QRS: -8 QRSD: 93 T: 20 QT: 382 QTc: 450 Interpretive Statements Sinus rhythm Inferior infarct, old Compared to ECG 03/25/2021 10:00:10 No significant changes Electronically Signed On 05-26-2021 10:46:04 EST by Carlos Manuel Deleon
[2021-05-26] MEDS: SODIUM CHLORIDE 0.9% 1000 ML 1,000 ML IV SCH (14:08)
--- NOTE | 2021-05-26 14:50 | Progress Note ---
Assessment and Plan Assessment and plan: #Acute blood loss anemia #Unspecified GI bleed On presentation hemoglobin 5.6 with repeat being 5.2 Status post transfusion of 1 unit packed RBC. Pending repeat unit to be transfused No active bleeding visualized during hospital stay Gastroenterology consulted; appreciate recs. Patient will follow up in outpatient setting with gastroenterology to possibly perform PillCam. Patient has had multiple episodes of GI bleeding versus symptomatic anemia with recommendations to perform PillCam; however, the patient has failed to show up x2. Continue empiric PPI Continue to trend hemoglobin daily #Hyperlipidemia #Hypertension - home medications: Imdur 30 mg daily, metoprolol tartrate 25 mg twice daily, and atorvastatin 40 g daily - current medications: Atorvastatin 40 mg - SBP goal <160 and DBP goal <90 while inpatient - continue to monitor #Hypothyroidism Continue home Synthroid 50 mcg #Advanced care planning -Disease education conducted, care plan discussed, diagnoses discussed, prognosis discussed, and patient acknowledges understanding with care plan -Time: +30 min #Discharge planning - Patient is pending right upper quadrant ultrasound to rule out possible acute cholecystitis - Case management has been made aware. - Discharge is tentatively tomorrow if right upper quadrant ultrasound is negative Disposition Plan: Pending possible discharge home tomorrow Total Time Spent with Patient (Minutes): 45 minutes History Interval history: No acute events overnight. Hospitalist Physical - Constitutional Vitals: Temp Pulse Resp BP Pulse Ox 98.1 F 95 H 16 140/57 95 05/26/21 05:02 05/26/21 05:02 05/26/21 05:02 05/26/21 05:02 05/26/21 05:02 General appearance: Present: no acute distress, well-nourished - EENT Eyes: Present: PERRL, EOM intact ENT: hearing intact, clear oral mucosa, edentulous - Neck Neck: Present: supple, normal ROM - Respiratory Respiratory effort: normal Respiratory: bilateral: CTA - Cardiovascular Rhythm: regular Heart Sounds: Present: S1 & S2 - Extremities Extremities: no ischemia, pulses intact, pulses symmetrical, No edema, normal temperature, normal color Peripheral Pulses: within normal limits - Abdominal General gastrointestinal: soft, non-tender, non-distended, distended - Integumentary Integumentary: Present: clear, warm, dry - Psychiatric Psychiatric: appropriate mood/affect, cooperative, other (Limited insight) - Neurologic Neurologic: CNII-XII intact - Allied Health Allied health notes reviewed: nursing HEART Score - HEART Score Troponin: Troponin T < 0.010 ng/mL (0.00-0.029) 05/25/21 11:14 Results - Labs CBC & Chem 7: 05/26/21 07:06 05/26/21 07:06 Labs: Laboratory Last Values WBC 9.1 K/mm3 (4.5-11.0) 05/25/21 11:14 RBC 3.13 M/mm3 (3.65-5.03) L 05/25/21 11:14 Hgb 6.7 gm/dl (10.1-14.3) L 05/26/21 07:06 Hct 22.6 % (30.3-42.9) L 05/26/21 07:06 MCV 66 fl (79-97) L 05/25/21 11:14 MCH 18 pg (28-32) L 05/25/21 11:14 MCHC 27 % (30-34) L 05/25/21 11:14 RDW 22.4 % (13.2-15.2) H 05/25/21 11:14 Plt Count 410 K/mm3 (140-440) 05/25/21 11:14 Lymph % (Auto) [employer] 05/25/21 11:14 [place] % (Auto) [employer] 05/25/21 11:14 Eos % (Auto) [employer] 05/25/21 11:14 Baso % (Auto) [employer] 05/25/21 11:14 Lymph # (Auto) [employer] 05/25/21 11:14 [place] # (Auto) [employer] 05/25/21 11:14 Eos # (Auto) [employer] 05/25/21 11:14 Baso # (Auto) [employer] 05/25/21 11:14 Add Manual Diff Complete 05/25/21 11:14 Total Counted 100 05/25/21 11:14 Seg Neutrophils % [employer] 05/25/21 11:14 Seg Neuts % (Manual) 88.0 % (40.0-70.0) H 05/25/21 11:14 Band Neutrophils % 0 % 05/25/21 11:14 Lymphocytes % (Manual) 6.0 % (13.4-35.0) L 05/25/21 11:14 Reactive Lymphs % (Man) 0 % 05/25/21 11:14 Monocytes % (Manual) 2.0 % (0.0-7.3) 05/25/21 11:14 Eosinophils % (Manual) 0 % (0.0-4.3) 05/25/21 11:14 Basophils % (Manual) 4.0 % (0.0-1.8) H 05/25/21 11:14 Metamyelocytes % 0 % 05/25/21 11:14 Myelocytes % 0 % 05/25/21 11:14 Promyelocytes % 0 % 05/25/21 11:14 Blast Cells % 0 % 05/25/21 11:14 Nucleated RBC % Not Reportable 05/25/21 11:14 Seg Neutrophils # [employer] 05/25/21 11:14 Seg Neutrophils # Man 8.0 K/mm3 (1.8-7.7) H 05/25/21 11:14 Band Neutrophils # 0.0 K/mm3 05/25/21 11:14 Lymphocytes # (Manual) 0.5 K/mm3 (1.2-5.4) L 05/25/21 11:14 Abs React Lymphs (Man) 0.0 K/mm3 05/25/21 11:14 Monocytes # (Manual) 0.2 K/mm3 (0.0-0.8) 05/25/21 11:14 Eosinophils # (Manual) 0.0 K/mm3 (0.0-0.4) 05/25/21 11:14 Basophils # (Manual) 0.4 K/mm3 (0.0-0.1) H 05/25/21 11:14 Metamyelocytes # 0.0 K/mm3 05/25/21 11:14 Myelocytes # 0.0 K/mm3 05/25/21 11:14 Promyelocytes # 0.0 K/mm3 05/25/21 11:14 Blast Cells # 0.0 K/mm3 05/25/21 11:14 WBC Morphology Not Reportable 05/25/21 11:14 Hypersegmented Neuts Not Reportable 05/25/21 11:14 Hyposegmented Neuts Not Reportable 05/25/21 11:14 Hypogranular Neuts Not Reportable 05/25/21 11:14 Smudge Cells Not Reportable 05/25/21 11:14 Toxic Granulation Not Reportable 05/25/21 11:14 Toxic Vacuolation Not Reportable 05/25/21 11:14 Dohle Bodies Not Reportable 05/25/21 11:14 Pelger-Huet Anomaly Not Reportable 05/25/21 11:14 Jacinta Rods Not Reportable 05/25/21 11:14 Platelet Estimate Consistent w auto 05/25/21 11:14 Clumped Platelets Not Reportable 05/25/21 11:14 Plt Clumps, EDTA Not Reportable 05/25/21 11:14 Large Platelets Not Reportable 05/25/21 11:14 Giant Platelets Not Reportable 05/25/21 11:14 Platelet Satelliting Not Reportable 05/25/21 11:14 Plt Morphology Comment Not Reportable 05/25/21 11:14 RBC Morphology Not Reportable 05/25/21 11:14 Dimorphic RBCs Not Reportable 05/25/21 11:14 Polychromasia Few 05/25/21 11:14 Hypochromasia 3+ 05/25/21 11:14 Poikilocytosis Not Reportable 05/25/21 11:14 Anisocytosis 2+ 05/25/21 11:14 Microcytosis 1+ 05/25/21 11:14 Macrocytosis Not Reportable 05/25/21 11:14 Spherocytes Not Reportable 05/25/21 11:14 Pappenheimer Bodies Not Reportable 05/25/21 11:14 Sickle Cells Not Reportable 05/25/21 11:14 Target Cells Not Reportable 05/25/21 11:14 Tear Drop Cells Not Reportable 05/25/21 11:14 Ovalocytes Not Reportable 05/25/21 11:14 Helmet Cells Not Reportable 05/25/21 11:14 [place] Bodies Not Reportable 05/25/21 11:14 [place] Rings Not Reportable 05/25/21 11:14 [place] Cells Not Reportable 05/25/21 11:14 Bite Cells Not Reportable 05/25/21 11:14 Crenated Cell Not Reportable 05/25/21 11:14 Elliptocytes Not Reportable 05/25/21 11:14 Acanthocytes (Spur) Not Reportable 05/25/21 11:14 Rouleaux Not Reportable 05/25/21 11:14 Hemoglobin C Crystals Not Reportable 05/25/21 11:14 Schistocytes Not Reportable 05/25/21 11:14 Malaria parasites Not Reportable 05/25/21 11:14 Mal[place] Bodies Not Reportable 05/25/21 11:14 Hem Pathologist Commnt No 05/25/21 11:14 PT 13.4 Sec. (12.2-14.9) 05/25/21 11:14 INR 0.92 (0.87-1.13) 05/25/21 11:14 Sodium 140 mmol/L (137-145) 05/26/21 07:06 Potassium 4.4 mmol/L (3.6-5.0) 05/26/21 07:06 Chloride 108.9 mmol/L (98-107) H 05/26/21 07:06 Carbon Dioxide 19 mmol/L (22-30) L 05/26/21 07:06 Anion Gap 17 mmol/L 05/26/21 07:06 BUN 10 mg/dL (7-17) 05/26/21 07:06 Creatinine 1.0 mg/dL (0.6-1.2) 05/26/21 07:06 Estimated GFR > 60 ml/min 05/26/21 07:06 BUN/Creatinine Ratio 10 % 05/26/21 07:06 Glucose 82 mg/dL (65-100) 05/26/21 07:06 Lactic Acid 3.70 mmol/L (0.7-2.0) H* 05/25/21 12:18 Calcium 8.8 mg/dL (8.4-10.2) 05/26/21 07:06 Magnesium 2.50 mg/dL (1.7-2.3) H 05/25/21 11:14 Total Bilirubin 0.60 mg/dL (0.1-1.2) 05/26/21 07:06 Direct Bilirubin < 0.2 mg/dL (0-0.2) 05/25/21 11:14 Indirect Bilirubin 0.1 mg/dL 05/25/21 11:14 AST 12 units/L (5-40) 05/26/21 07:06 ALT 11 units/L (7-56) 05/26/21 07:06 Alkaline Phosphatase 109 units/L (35-129) 05/26/21 07:06 Total Creatine Kinase 99 units/L (30-135) 05/25/21 11:14 Troponin T < 0.010 ng/mL (0.00-0.029) 05/25/21 11:14 Total Protein 6.1 g/dL (6.3-8.2) L 05/26/21 07:06 Albumin 3.7 g/dL (3.9-5) L 05/26/21 07:06 Albumin/Globulin Ratio 1.5 % 05/26/21 07:06 Lipase 63 units/L (13-60) H 05/25/21 11:14 TSH 1.570 mlU/mL (0.270-4.200) 05/26/21 07:14 Urine Color Yellow (Yellow) 05/25/21 14:36 Urine Turbidity Clear (Clear) 05/25/21 14:36 Urine pH 6.0 (5.0-7.0) 05/25/21 14:36 Ur Specific [place] 1.047 (1.003-1.030) H 05/25/21 14:36 Urine Protein <15 mg/dl mg/dL (Negative) 05/25/21 14:36 Urine Glucose (UA) Neg mg/dL (Negative) 05/25/21 14:36 Urine Ketones Neg mg/dL (Negative) 05/25/21 14:36 Urine Blood Neg (Negative) 05/25/21 14:36 Urine Nitrite Neg (Negative) 05/25/21 14:36 Urine Bilirubin Neg (Negative) 05/25/21 14:36 Urine Urobilinogen < 2.0 mg/dL (<2.0) 05/25/21 14:36 Ur Leukocyte Esterase Neg (Negative) 05/25/21 14:36 Urine WBC (Auto) 2.0 /HPF (0.0-6.0) 05/25/21 14:36 Urine RBC (Auto) 2.0 /HPF (0.0-6.0) 05/25/21 14:36 U Epithel Cells (Auto) 3.0 /HPF (0-13.0) 05/25/21 14:36 Urine Mucus Few /HPF 05/25/21 14:36 Blood Type A POSITIVE 05/25/21 12:18 Antibody Screen Negative 05/25/21 12:18 Crossmatch See Detail 05/25/21 12:18 [place]/IV: Voiding Method Toilet Active Medications - Current Medications Current Medications: Generic Name Dose Route Start Last Admin Trade Name Freq PRN Reason Stop Dose Admin Acetaminophen 650 mg 05/25/21 15:00 Acetaminophen 325 Mg Tab PO Q4H PRN Pain MILD(1-3)/Fever >100.5/BRAND Sodium Chloride 1,000 mls @ 42 mls/hr 05/25/21 15:00 05/26/21 14:08 Nacl 0.9% 1000 Ml IV 42 mls/hr DIRECT ODALIS Administration Sodium Chloride 500 mls @ 0 mls/hr 05/26/21 06:59 Nacl 0.9% 500 Ml IV 05/26/21 20:00 ONCE NR As Directed Sodium Chloride 500 mls @ 0 mls/hr 05/26/21 07:46 Nacl 0.9% 500 Ml IV 05/27/21 07:45 ONCE NR As Directed Metoclopramide HCl 10 mg 05/25/21 15:00 Metoclopramide 10 Mg/2 Ml Inj IV Q6H PRN Nausea And Vomiting Morphine Sulfate 2 mg 05/25/21 15:00 05/26/21 04:52 Morphine 2 Mg/1 Ml Inj IV 2 mg Q4H PRN Administration Pain, Moderate (4-6) Ondansetron HCl 4 mg 05/25/21 15:00 Ondansetron 4 Mg/2 Ml Inj IV Q8H PRN Nausea And Vomiting Pantoprazole Sodium 40 mg 05/26/21 10:00 05/26/21 09:55 Pantoprazole 40 Mg Inj IV 40 mg BID ODALIS Administration Sodium Chloride 10 ml 05/25/21 22:00 05/26/21 09:55 Sodium Chloride 0.9% 10 Ml Flush Syringe IV 10 ml BID ODALIS Administration Sodium Chloride 10 ml 05/25/21 15:00 Sodium Chloride 0.9% 10 Ml Flush Syringe IV PRN PRN LINE FLUSH
[2021-05-26 15:00] LABS: Hematocrit 23.5 % (30.3-42.9); Hemoglobin 6.8 gm/dl (10.1-14.3)
--- NOTE | 2021-05-26 18:03 | Ultrasound Report ---
ULTRASOUND ABDOMEN, LIMITED INDICATION / CLINICAL INFORMATION: Assess for cholelithiasis. COMPARISON: None available. FINDINGS: PANCREAS: Visualized portion shows no significant abnormality. LIVER: The liver demonstrates diffuse increase in echotexture suggesting hepatic steatosis. The right hepatic lobe measures 17.1 cm. Normal hepatopedal blood flow in the main portal vein. GALLBLADDER: No significant abnormality. BILE DUCTS: No significant abnormality. Common bile duct measures 7 mm. FREE FLUID: None. ADDITIONAL FINDINGS: None. IMPRESSION: 1. Hyperechoic liver compatible with hepatic steatosis. 2. No cholelithiasis or findings to suggest acute cholecystitis. Signer Name: Oseas Rabago II, MD Signed: 05/26/2021 5:58 PM Workstation Name: [id number]
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
[2021-05-27] MEDS ORDERED: LEVOTHYROXINE 50 MCG TAB PO SCH (06:00)
[2021-05-27 06:29] LABS: Alanine Aminotransferase 15 units/L (7-56); Albumin 4.1 g/dL (3.9-5); BUN/Creatinine Ratio 8; Blood Urea Nitrogen 9 mg/dL (7-17); Calcium 9.2 mg/dL (8.4-10.2); Hemolysis Index 3
[2021-05-27 07:39] LABS: Hematocrit 29.8 % (30.3-42.9)
[2021-05-27] MEDS: PANTOPRAZOLE 40 MG INJ IV SCH (09:54)
[2021-05-27] MEDS ORDERED: ASPIRIN 81 MG TAB CHEW PO SCH (10:00)
--- NOTE | 2021-05-27 10:48 | Consultation ---
History of Present Illness Consult date: 05/27/21 Consult reason: other (Anemia) History of present illness: Patient is a 66-year-old woman with coronary artery disease. 4 years ago, she presented to this hospital with acute inferior myocardial infarction, which occurred due to late thrombosis of a previous mid right coronary artery stent, implanted several years before when she lived in [place]. We treated her with primary angioplasty with additional drug-eluting stents with excellent result and mosque of JAYDE-3 flow. The patient has since done well on antiplatelet therapy and has had no cardiac complaints. She presents to the hospital at this time with abdominal pain, and a profound anemia hematocrit of 19. She was treated with several units of blood transfusi on, and gastroenterology work-up is in progress. Cardiology consultation was requested for advice on further antiplatelet therapy. The patient is reported with no chest pain, no shortness of breath and and no cardiac symptoms. EKG done on this presentation is in normal sinus rhythm, inferior Q waves consistent with her old myocardial infarction, but no acute ST or T wave abnormalities. 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 Past History Past Medical History: CAD (with stents in 02/20/2017 for STEMI) Past Surgical History: PTCA, bowel surgery (Right hemicolectomy, likely diverticular), Other (Colonoscopy and EGD - 03/2017) Social history: no significant social history Family history: no significant family history Medications and Allergies Allergies Allergy/AdvReac Type Severity Reaction Status Date / Time tetracycline Allergy Unknown Unknown Verified 03/25/21 08:52 Home Medications Medication Instructions Recorded Confirmed Last Taken Type Aspirin [Aspirin BABY CHEW TAB] 81 mg PO QDAY 30 Days tab.chew 02/15/17 05/26/21 05/24/21 09:00 Rx AtorvaSTATin [Lipitor] 40 mg PO QHS #30 tablet 02/15/17 05/26/21 05/24/21 09:00 Rx Clopidogrel [Plavix] 75 mg PO QDAY 30 Days tablet 02/15/17 05/26/21 Unknown Rx ISOSORBIDE MONOnitrate [Imdur ER] 30 mg PO QDAY 30 Days tablet 02/15/17 Unknown Rx Metoprolol [Lopressor TAB] 25 mg PO BID 30 Days tablet 03/17/17 05/26/21 05/24/21 09:00 Rx Levothyroxine [Synthroid] 50 mcg PO QAM 05/26/21 05/26/21 05/24/21 08:00 History Omeprazole 40 mg PO QA #30 05/26/21 Unknown Rx Active Meds: Active Medications Acetaminophen (Acetaminophen 325 Mg Tab) 650 mg PO Q4H PRN PRN Reason: Pain MILD(1-3)/Fever >100.5/BRAND Atorvastatin Calcium (Atorvastatin 40 Mg Tab) 40 mg PO QHS [facility] Last Admin: 05/26/21 22:39 Dose: 40 mg Levothyroxine Sodium (Levothyroxine 50 Mcg Tab) 50 mcg PO DAILY@0600 [facility] Last Admin: 05/27/21 06:17 Dose: 50 mcg Metoclopramide HCl (Metoclopramide 10 Mg/2 Ml Inj) 10 mg IV Q6H PRN PRN Reason: Nausea And Vomiting Morphine Sulfate (Morphine 2 Mg/1 Ml Inj) 2 mg IV Q4H PRN PRN Reason: Pain, Moderate (4-6) Last Admin: 05/26/21 04:52 Dose: 2 mg Ondansetron HCl (Ondansetron 4 Mg/2 Ml Inj) 4 mg IV Q8H PRN PRN Reason: Nausea And Vomiting Pantoprazole Sodium (Pantoprazole 40 Mg Inj) 40 mg IV BID [facility] Last Admin: 05/27/21 09:54 Dose: 40 mg Sodium Chloride (Sodium Chloride 0.9% 10 Ml Flush Syringe) 10 ml IV BID [facility] Last Admin: 05/27/21 09:54 Dose: 10 ml Sodium Chloride (Sodium Chloride 0.9% 10 Ml Flush Syringe) 10 ml IV PRN PRN PRN Reason: LINE FLUSH Review of Systems Cardiovascular: no chest pain, no orthopnea, no palpitations, no rapid/irregular heart beat, no edema, no syncope, no lightheadedness, no shortness of breath Physical Examination Vital Signs Temp Pulse Resp BP Pulse Ox 98 F 110 H 14 84/42 99 05/25/21 10:03 05/25/21 10:03 05/25/21 10:03 05/25/21 10:03 05/25/21 10:03 General appearance: no acute distress HEENT: Positive: PERRL Neck: Positive: neck supple Cardiac: Positive: Reg Rate and Rhythm Lungs: Positive: clear to auscultation Neuro: Positive: Grossly Intact Abdomen: Positive: Soft Female genitourinary: deferred Skin: Positive: Clear Extremities: Absent: edema Results 05/27/21 07:30 05/27/21 05:30 Cardiac Enzymes 05/27/21 Range/Units 05:30 AST 20 (5-40) units/L CBC 05/26/21 05/27/21 Range/Units 14:09 07:30 Hgb 6.8 L 9.0 L (10.1-14.3) gm/dl Hct 23.5 L 29.8 L D (30.3-42.9) % Comprehensive Metabolic Panel 05/27/21 Range/Units 05:30 Sodium 143 (137-145) mmol/L Potassium 4.4 (3.6-5.0) mmol/L Chloride 109.7 H (98-107) mmol/L Carbon Dioxide 19 L (22-30) mmol/L BUN 9 (7-17) mg/dL Creatinine 1.1 (0.6-1.2) mg/dL Glucose 88 (65-100) mg/dL Calcium 9.2 (8.4-10.2) mg/dL AST 20 (5-40) units/L ALT 15 (7-56) units/L Alkaline Phosphatase 119 (35-129) units/L Total Protein 6.9 (6.3-8.2) g/dL Albumin 4.1 (3.9-5) g/dL EKG interpretations - Telemetry EKG Rhythm: Sinus Rhythm (With inferior Q waves of old infarct, otherwise no acute changes) Assessment and Plan - Patient Problems (1) Acute blood loss anemia Current Visit: Yes Status: Acute Plan to address problem: Patient presents with abdominal pain and profound anemia hematocrit of 19, required several units of blood transfusion. She has a history of coronary artery disease, with right coronary artery stenting 5 years ago. There are no cardiac complaints at the current time. ECG is benign. Patient is at high risk for continued antiplatelet therapy at this time, will therefore discontinue oral antiplatelet therapy until after optimal GI evaluation and management of her history of recurrent bleeding and anemia. Otherwise no further cardiac intervention at this time, will follow as necessary.
--- NOTE | 2021-05-27 11:29 | Discharge Summary ---
Providers - Providers Date of Admission: 05/25/21 14:32 Date of discharge: 05/27/21 Attending physician: МАРИНА VILLASEÑOR MD 05/25/21 12:33 Consult to Physician [CONS] Urgent Comment: Consulting Provider: MARGIE SALCEDO Physician Instructions: Reason For Exam: gi bleed 05/26/21 12:37 Consult to Physician [CONS] Routine Comment: Consulting Provider: RAMON JAVED Physician Instructions: Reason For Exam: Antiplatelet management + GI bleeding 05/27/21 08:07 Physical Therapy Evaluation and Treat [CONS] Stat Comment: Reason For Exam: eval and treat Primary care physician: MOTOR ANALYST Hospitalization Reason for admission: Acute blood loss anemia Condition: Fair Pertinent studies: Reviewed. Procedures: None. Hospital course: Patient is a 66-year-old female past medical history of CAD (on Plavix and aspirin) complicated by myocardial infarction and status post stents x2, hypothyroidism, hypertension, hyperlipidemia, GERD, dementia, seizure disorder, COPD, history of brain aneurysm with stent, and history of multiple episodes of GI bleeding without an identifiable source who presents for epigastric pain and melena. The patient was due for an outpatient stress test and endorsed having dark stools, and she was therefore referred to the ED for further evaluation. Patient denies taking any NSAIDs. On admission the patient was found to have a hemoglobin of 5.2 and as a result was transfused a total of 3 units packed RBCs. Gastroenterology was consulted for further management. Detailed chart review and history from the patient revealed multiple episodes of melena with relatively unremarkable EGD and colonoscopy. On 2 different occasions the patient was recommended to have a outpatient CamPill procedure performed; however, the patient failed to show up on both occasions. The patient is remained hemodynamically stable after transfusion. Gastroenterology recommends patient following up in outpatient setting for further management. Cardiology was consulted for recommendations regarding antiplatelet therapy; they believe it is best that the patient discontinue current oral antiplatelet therapy until better optimized by GI in the setting of recurrent bleeding and significant anemia. Patient expresses understanding. Patient is medically clear for discharge. Disposition: 01 HOME / SELF CARE / HOMELESS Final Discharge Diagnosis (Prints w/discharge instructions): Acute blood loss anemia, microcytic anemia, hypertension, hyperlipidemia, hypothyroidism Time spent for discharge: 45 min Core Measure Documentation - Palliative Care Palliative Care/ Comfort Measures: Not Applicable - Core Measures Any of the following diagnoses?: history only Exam - Constitutional Vitals: Temp Pulse Resp BP Pulse Ox 98.6 F 70 20 117/53 99 05/27/21 05:38 05/27/21 05:38 05/27/21 05:38 05/27/21 05:38 05/27/21 05:38 General appearance: Present: no acute distress, well-nourished - EENT Eyes: Present: PERRL, EOM intact ENT: hearing intact, clear oral mucosa, dentition normal - Neck Neck: Present: supple, normal ROM - Respiratory Respiratory effort: normal Respiratory: bilateral: CTA - Cardiovascular Rhythm: regular Heart Sounds: Present: S1 & S2 - Extremities Extremities: no ischemia, pulses intact, pulses symmetrical, normal temperature, normal color Peripheral Pulses: within normal limits - Abdominal General gastrointestinal: Present: soft, non-tender, non-distended, normal bowel sounds Female genitourinary: Present: deferred - Rectal Rectal Exam: deferred - Integumentary Integumentary: Present: clear, warm, dry - Musculoskeletal Musculoskeletal: generalized weakness - Psychiatric Psychiatric: appropriate mood/affect, cooperative, other (Limited insight) - Neurologic Neurologic: CNII-XII intact - Allied Health Allied health notes reviewed: nursing Plan Activity: no restrictions Diet: low salt Additional Instructions: Patient is a 66-year-old female past medical history of CAD (on Plavix and aspirin) complicated by myocardial infarction and status post stents x2, hypothyroidism, hypertension, hyperlipidemia, GERD, dementia, seizure disorder, COPD, history of brain aneurysm with stent, and history of multiple episodes of GI bleeding without an identifiable source who presents for epigastric pain and melena. The patient was due for an outpatient stress test and endorsed having dark stools, and she was therefore referred to the ED for further evaluation. Patient denies taking any NSAIDs. On admission the patient was found to have a hemoglobin of 5.2 and as a result was transfused a total of 3 units packed RBCs. Gastroenterology was consulted for further management. Detailed chart review and history from the patient revealed multiple episodes of melena with relatively unremarkable EGD and colonoscopy. On 2 different occasions the patient was recommended to have a outpatient CamPill procedure per formed; however, the patient failed to show up on both occasions. The patient is remained hemodynamically stable after transfusion. Gastroenterology recommends patient following up in outpatient setting for further management. Cardiology was consulted for recommendations regarding antiplatelet therapy; they believe it is best that the patient discontinue current oral antiplatelet therapy until better optimized by GI in the setting of recurrent bleeding and significant anemia. Patient expresses understanding. Patient is medically clear for discharge. Care Plan Goals: Medically cleared for discharge. Assessment: Patient is a 66-year-old female past medical history of CAD (on Plavix and aspirin) complicated by myocardial infarction and status post stents x2, hypothyroidism, hypertension, hyperlipidemia, GERD, dementia, seizure disorder, COPD, history of brain aneurysm with stent, and history of multiple episodes of GI bleeding without an identifiable source who presents for epigastric pain and melena. The patient was due for an outpatient stress test and endorsed having dark stools, and she was therefore referred to the ED for further evaluation. Patient denies taking any NSAIDs. On admission the patient was found to have a hemoglobin of 5.2 and as a result was transfused a total of 3 units packed RBCs. Gastroenterology was consulted for further management. Detailed chart review and history from the patient revealed multiple episodes of melena with relatively unremarkable EGD and colonoscopy. On 2 different occasions the patient was recommended to have a outpatient CamPill procedure performed; however, the patient failed to show up on both occasions. The patient is remained hemodynamically stable after transfusion. Gastroenterology recommends patient following up in outpatient setting for further management. Cardiology was consulted for recommendations regarding antiplatelet therapy; they believe it is best that the patient discontinue current oral antiplatelet therapy until better optimized by GI in the setting of recurrent bleeding and significant anemia. Patient expresses understanding. Patient is medically clear for discharge. Follow up with: HENRIQUE MEJIA MD [Primary Care Provider] - 3-5 Days ESTEFANÍA GAONA MD [Staff Physician] - 6 Weeks Prescriptions: Omeprazole 40 mg PO QAM #30
[2021-05-27 11:37] VITALS: BP 146/69
== END 2021-05-27 13:30 | disposition home health service (06) | DRG 378 ==
LOC: ED 10:02 → 3A 14:32
PROVIDERS: ADMIT Internal Medicine; ATTEND Student in an Organized Health Care Education/Training Program
PROC: 30233N1 Transfusion of Nonautologous Red Blood Cells into Peripheral Vein, Percutaneous Approach (ICD-10-PCS; principal; 2021-05-25)
DX: K92.2 Gastrointestinal hemorrhage, unspecified (principal); D62 Acute posthemorrhagic anemia; I10 Essential (primary) hypertension; K21.9 Gastro-esophageal reflux disease without esophagitis; I25.10 Atherosclerotic heart disease of native coronary artery without angina pectoris; E78.2 Mixed hyperlipidemia; E03.9 Hypothyroidism, unspecified
CPT/HCPCS: 36415; 74177; 76705; 80048; 80053; 80076; 81001; 82140; 82550; 83690; 83735; 84443; 84484; 85007; 85014; 85018; 85025; 85610; 86850; 86900; 86901; 86920; 93005; 93010; G0378; Q0162; C9113; J2060; J2270; J2405; J7030; J7040; P9016; Q9967

== ENCOUNTER 2021-11-22 01:03 | Emergency (ER) | payer MEDICARE ==
[2021-11-22 05:04] LABS: Bacteria,Urine 1+ /HPF (Negative); Mucus,Urine FEW /HPF
[2021-11-22 05:28] LABS: Color,Urine Yellow (Yellow)
[2021-11-22] MEDS ORDERED: ONDANSETRON 4 MG/2 ML INJ IV ONE (08:24)
[2021-11-22] MEDS ORDERED: MORPHINE 4 MG/1 ML INJ IV ONE (08:24)
--- NOTE | 2021-11-22 08:42 | Emergency Department Report ---
ED Abdominal Pain HPI - General Chief Complaint: Abdominal Pain Stated Complaint: LOWER BACK PAIN,ABD PAIN Time Seen by Provider: 11/22/21 08:05 Source: patient, family ( at the bedside assisting with history of present illness) Mode of arrival: Ambulatory Limitations: No Limitations - History of Present Illness Initial Comments: 66-year-old female past medical history of CAD (on Plavix and aspirin) complicated by myocardial infarction and status post stents x2, hypothyroidism, hypertension, hyperlipidemia, GERD, dementia, seizure disorder, COPD, history of brain aneurysm with stent, and history of multiple episodes of GI bleeding without an identifiable source who presents to the ER with complaints of lower back and lower abdominal pain that started approximately 10 PM last night. Pain is constant, worse with palpation and movement. - Related Data Home Medications Medication Instructions Recorded Confirmed Last Taken Levothyroxine [Synthroid] 50 mcg PO QAM 05/26/21 05/26/21 05/24/21 08:00 Previous Rx's Medication Instructions Recorded Last Taken Type Aspirin [Aspirin BABY CHEW TAB] 81 mg PO QDAY 30 Days tab.chew 02/15/17 05/24/21 09:00 Rx AtorvaSTATin [Lipitor] 40 mg PO QHS #30 tablet 02/15/17 05/24/21 09:00 Rx Clopidogrel [Plavix] 75 mg PO QDAY 30 Days tablet 02/15/17 Unknown Rx ISOSORBIDE MONOnitrate [Imdur ER] 30 mg PO QDAY 30 Days tablet 02/15/17 Unknown Rx Metoprolol [Lopressor TAB] 25 mg PO BID 30 Days tablet 03/17/17 05/24/21 09:00 Rx Omeprazole 40 mg PO QAM #30 05/26/21 Unknown Rx Docusate Sodium [Colace] 100 mg PO BID PRN #20 capsule 11/22/21 Unknown Rx HYDROcodone/APAP 5-325 [[place] 1 each PO Q6HR PRN #10 tablet 11/22/21 Unknown Rx 5/325] Allergies Allergy/AdvReac Type Severity Reaction Status Date / Time tetracycline Allergy Unknown Unknown Verified 03/25/21 08:52 ED Review of Systems ROS: Stated complaint: LOWER BACK PAIN,ABD PAIN Other details as noted in HPI ED Past Medical Hx - Past Medical History Hx Hypertension: Yes Hx CVA: No Hx Heart Attack/AMI: Yes Hx Congestive Heart Failure: No Hx Diabetes: No Hx Arthritis: No Hx Seizures: Yes Hx Asthma: No Hx COPD: Yes Hx Dementia: Yes Additional medical history: brain anuerysm. Stents - Surgical History Additional Surgical History: 2 stents placed - Social History Smoking Status: Never Smoker - Medications Home Medications: Home Medications Medication Instructions Recorded Confirmed Last Taken Type Aspirin [Aspirin BABY CHEW TAB] 81 mg PO QDAY 30 Days tab.chew 02/15/17 05/26/21 05/24/21 09:00 Rx AtorvaSTATin [Lipitor] 40 mg PO QHS #30 tablet 02/15/17 05/26/21 05/24/21 09:00 Rx Clopidogrel [Plavix] 75 mg PO QDAY 30 Days tablet 02/15/17 05/26/21 Unknown Rx ISOSORBIDE MONOnitrate [Imdur ER] 30 mg PO QDAY 30 Days tablet 02/15/17 05/26/21 Unknown Rx Metoprolol [Lopressor TAB] 25 mg PO BID 30 Days tablet 03/17/17 05/26/21 05/24/21 09:00 Rx Levothyroxine [Synthroid] 50 mcg PO QAM 05/26/21 05/26/21 05/24/21 08:00 History Omeprazole 40 mg PO QAM #30 05/26/21 Unknown Rx Docusate Sodium [Colace] 100 mg PO BID PRN #20 capsule 11/22/21 Unknown Rx HYDROcodone/APAP 5-325 [[place] 1 each PO Q6HR PRN #10 tablet 11/22/21 Unknown Rx 5/325] ED Physical Exam - General Limitations: No Limitations - Other Other exam information: General: No acute distress Head: Atraumatic Eyes: normal appearance ENT: Moist mucous membranes Neck: Normal appearance, no midline tenderness Chest: Clear to auscultation bilaterally CV: Regular rate and rhythm Abdomen: Soft, normal bowel sounds, suprapubic and left-sided abdominal tenderness to palpation. No rebound or guarding Back: Normal inspection Extremity: Normal inspection, full range of motion Neuro: Alert O x 2, no facial asymmetry, speech clear, no gross motor sensory deficit Psych: Appropriate behavior Skin: No rash ED Course Vital Signs 11/22/21 02:03 Temperature 98.2 F Pulse Rate 67 Respiratory 18 Rate Blood Pressure 140/54 [Right] O2 Sat by Pulse 96 Oximetry ED Medical Decision Making - Lab Data Result diagrams: 11/22/21 08:47 11/22/21 08:47 Lab Results 11/22/21 11/22/21 11/22/21 Range/Units 04:39 08:47 08:47 WBC 6.3 (4.5-11.0) K/mm3 RBC 3.77 (3.65-5.03) M/mm3 Hgb 11.7 (10.1-14.3) gm/dl Hct 37.3 (30.3-42.9) % MCV 99 H (79-97) fl MCH 31 (28-32) pg MCHC 31 (30-34) % RDW 15.8 H (13.2-15.2) % Plt Count 252 (140-440) K/mm3 Lymph % (Auto) 23.5 (13.4-35.0) % Bee % (Auto) 7.6 H (0.0-7.3) % Eos % (Auto) 2.8 (0.0-4.3) % Baso % (Auto) 0.6 (0.0-1.8) % Lymph # (Auto) 1.5 (1.2-5.4) K/mm3 Bee # (Auto) 0.5 (0.0-0.8) K/mm3 Eos # (Auto) 0.2 (0.0-0.4) K/mm3 Baso # (Auto) 0.0 (0.0-0.1) K/mm3 Seg Neutrophils % 65.5 (40.0-70.0) % Seg Neutrophils # 4.1 (1.8-7.7) K/mm3 Sodium 141 (137-145) mmol/L Potassium 4.0 (3.6-5.0) mmol/L Chloride 106.7 (98-107) mmol/L Carbon Dioxide 21 L (22-30) mmol/L Anion Gap 17 mmol/L BUN 14 (7-17) mg/dL Creatinine 1.0 (0.6-1.2) mg/dL Estimated GFR > 60 ml/min BUN/Creatinine Ratio 14 % Glucose 103 H (65-100) mg/dL Calcium 9.6 (8.4-10.2) mg/dL Total Bilirubin 0.20 (0.1-1.2) mg/dL AST 21 (5-40) units/L ALT 29 (7-56) units/L Alkaline Phosphatase 122 (35-129) units/L Total Protein 7.0 (6.3-8.2) g/dL Albumin 4.6 (3.9-5) g/dL Albumin/Globulin Ratio 1.9 % Lipase 35 (13-60) units/L Urine Color Yellow (Yellow) Urine Turbidity Slightly cloudy (Clear) Specific [place] (Man) 1.030 (1.003-1.030) Ur Protein (Man) 1+ (Negative) mg/dL Ur Ketones (Man) Negative (Negative) Urine Bilirubin (Man) Negative (Negative) Urine WBC (Auto) 1.0 (0.0-6.0) /HPF Urine RBC (Auto) 2.0 (0.0-6.0) /HPF U Epithel Cells (Auto) 1.0 (0-13.0) /HPF Urine Bacteria (Auto) 1+ (Negative) /HPF Urine RBC (Manual) Trace (Negative) Urine Mucus Few /HPF - Radiology Data Radiology results: report reviewed CT ABDOMEN AND PELVIS WITH CONTRAST INDICATION / CLINICAL INFORMATION: lower abd pain. TECHNIQUE: Axial CT images were obtained through the abdomen and pelvis after 100 cc Omnipaque [address] scans at this location are performed using CT dose reduction for ALARA by means of automated exposure control. COMPARISON: CT abdomen and pelvis with contrast from 05/25/2021. FINDINGS: LOWER CHEST: No significant abnormality. LIVER: There is steatosis without other significant abnormalities. GALLBLADDER: No significant abnormality. BILE DUCTS: No significant abnormality. PANCREAS: No significant abnormality. SPLEEN: No significant abnormality. ADRENALS: No significant abnormality. RIGHT KIDNEY/URETER: Multifocal cortical scarring is again seen without other significant abnormalities. LEFT KIDNEY/URETER: Multifocal cortical scarring is again seen without other significant abnormalities. STOMACH/SMALL BOWEL: No significant abnormality. COLON: There is noninflamed sigmoid diverticulosis without other significant abnormalities. APPENDIX: Not visualized. PERITONEUM: No free fluid. No free air. No fluid collection. LYMPH NODES: No significant adenopathy. VASCULATURE: There is moderate generalized atherosclerosis without other significant abnormalities. URINARY BLADDER: No significant abnormality. REPRODUCTIVE ORGANS: Prior hysterectomy. No significant abnormality. ADDITIONAL FINDINGS: None. BONES: No significant abnormality IMPRESSION: 1. No acute findings to explain the patient's abdominal pain. 2. Additional findings as above. - Medical Decision Making 66-year-old female with history of mild dementia and other chronic medical conditions presents to the hospital complaining of abdominal pain. Lower abdominal tenderness on examination. Labs, UA, and CT abdomen pelvis with IV contrast does not show acute abnormality. Pain improved after receiving morphine and Zofran in the ED. Patient will be discharged with pain medications and outpatient follow-up Critical Care Time: No Critical care attestation.: If time is entered above; I have spent that time in minutes in the direct care of this critically ill patient, excluding procedure time. ED Disposition Clinical Impression: Abdominal pain Disposition: HOME / SELF CARE / HOMELESS Is pt being admited?: No Does the pt Need Aspirin: No Condition: Stable Instructions: Abdominal Pain (ED), Abdominal Pain, Adult Additional Instructions: Take the medication as prescribed. Follow-up with your doctor or doctor/clinic provided. Return if symptoms worsen as indicated by your discharge ins tructions. Prescriptions: Docusate Sodium [Colace] 100 mg PO BID PRN #20 capsule PRN Reason: Constipation HYDROcodone/APAP 5-325 [[place] 5/325] 1 each PO Q6HR PRN #10 tablet PRN Reason: Pain Referrals: your, primary care doctor [Other] - 3-5 Days JAC KABA MD [Staff Physician] - 3-5 Days Time of Disposition: 12:09
[2021-11-22 09:17] LABS: Basophils % (Auto) 0.6 % (0.0-1.8); Eosinophils # (Auto) 0.2 K/mm3 (0.0-0.4); Eosinophils % (Auto) 2.8 % (0.0-4.3); Hematocrit 37.3 % (30.3-42.9); Hemoglobin 11.7 gm/dl (10.1-14.3); Lymphocytes # (Auto) 1.5 K/mm3 (1.2-5.4); Lymphocytes % (Auto) 23.5 % (13.4-35.0); Mean Corpuscular HGB Conc 31 % (30-34); Mean Corpuscular Volume 99 fl (79-97); Monocytes # (Auto) 0.5 K/mm3 (0.0-0.8); Monocytes % (Auto) 7.6 % (0.0-7.3); Platelet Count 252 K/mm3 (140-440); Red Blood Count 3.77 M/mm3 (3.65-5.03); Red Cell Distribution Width 15.8 % (13.2-15.2)
[2021-11-22 09:37] LABS: Alanine Aminotransferase 29 units/L (7-56); Albumin 4.6 g/dL (3.9-5); BUN/Creatinine Ratio 14; Blood Urea Nitrogen 14 mg/dL (7-17); Calcium 9.6 mg/dL (8.4-10.2); Hemolysis Index 23
--- NOTE | 2021-11-22 11:07 | Cat Scan Report ---
CT ABDOMEN AND PELVIS WITH CONTRAST INDICATION / CLINICAL INFORMATION: lower abd pain. TECHNIQUE: Axial CT images were obtained through the abdomen and pelvis after 100 cc Omnipaque [address] scans at this location are performed using CT dose reduction for ALARA by means of automated exposure control. COMPARISON: CT abdomen and pelvis with contrast from 05/25/2021. FINDINGS: LOWER CHEST: No significant abnormality. LIVER: There is steatosis without other significant abnormalities. GALLBLADDER: No significant abnormality. BILE DUCTS: No significant abnormality. PANCREAS: No significant abnormality. SPLEEN: No significant abnormality. ADRENALS: No significant abnormality. RIGHT KIDNEY/URETER: Multifocal cortical scarring is again seen without other significant abnormaliti es. LEFT KIDNEY/URETER: Multifocal cortical scarring is again seen without other significant abnormalitie s. STOMACH/SMALL BOWEL: No significant abnormality. COLON: There is noninflamed sigmoid diverticulosis without other significant abnormalities. APPENDIX: Not visualized. PERITONEUM: No free fluid. No free air. No fluid collection. LYMPH NODES: No significant adenopathy. VASCULATURE: There is moderate generalized atherosclerosis without other significant abnormalities. URINARY BLADDER: No significant abnormality. REPRODUCTIVE ORGANS: Prior hysterectomy. No significant abnormality. ADDITIONAL FINDINGS: None. BONES: No significant abnormality IMPRESSION: 1. No acute findings to explain the patient's abdominal pain. 2. Additional findings as above. Signer Name: Juan Calhoun MD Signed: 11/22/2021 11:03 AM Workstation Name: [id number]
[2021-11-22] MEDS ORDERED: ASPIRIN 325 MG TAB PO ONE (11:13)
[2021-11-22 13:27] VITALS: BP 144/82
== END 2021-11-22 13:25 | disposition home or self-care (01) ==
LOC: ED 01:03
DX: R10.30 Lower abdominal pain, unspecified (principal); M54.50 Low back pain, unspecified; I10 Essential (primary) hypertension; J44.9 Chronic obstructive pulmonary disease, unspecified; Z88.1 Allergy status to other antibiotic agents; Z79.82 Long term (current) use of aspirin; Z79.899 Other long term (current) drug therapy
CPT/HCPCS: 36415; 74177; 80053; 81001; 83690; 85025; 96374; 96375; 99284; J2270; J2405; Q9967

== ENCOUNTER 2021-11-30 17:21 | Emergency (ER) | payer MEDICARE ==
[2021-11-30 20:29] VITALS: BP 130/63
== END 2021-12-01 17:57 | disposition left against medical advice (07) ==
LOC: ED 17:21
DX: R10.9 Unspecified abdominal pain (principal); Z53.21 Procedure and treatment not carried out due to patient leaving prior to being seen by health care provider